=== PATIENT | male | born 1960 | race Caucasian/White ===

== ENCOUNTER 2017-11-10 17:41 | Emergency (ER) | payer MEDICAID ==
--- NOTE | 2017-11-10 18:28 | ERPHSYRPT ---
- History of Present Illness Source: patient Exam Limitations: no limitations Patient Subjective Stated Complaint: Pt states "I had surgery on my esophagus by Dr. Wahl on September 06 and I was eating well and when they sent me home , I got an infection and then I developed a hole and have not been able to take my medication or eat for the past week or so and I am losing a ton of weight and when I called to get to see the surgeon, they could get me in next wednesday but they told me to go to the ED to get some fluids, but I also hurt so much." Triage Nursing Assessment: Pt alert and oriented X 3, skin pwd. pt ambulates with an upright steady gait, able to speak in clear full sentences. PT extremly thin, has scarring on abdomen and wound with a wet to dry dressing on upper chest. pt voice hoarse. Timing/Duration: week(s) (2 months) Severity: severe Modifying Factors: Improves With: eating Associated Symptoms: vomiting, weakness, No nausea, No abdominal pain Hx Tetanus, Diphtheria Vaccination/Date Given: Yes Hx Influenza Vaccination/Date Given: Yes Hx Pneumococcal Vaccination/Date Given: Yes Immunizations Up to Date: Yes <KENDRA MELTON - Last Filed: 11/10/17 19:48> <JAIRON ROGERS - Last Filed: 11/10/17 21:24> - History of Present Illness Time Seen by Provider: 11/10/17 18:08 Physician History: The patient is a 57-year-old male with his brother complaining of not being able to eat or drink normally since September 06. His condition has worsened significantly over the past 5 days. Of December of last year the patient had a spit fistula repair with stent placement that [facility]. On September 06 the patient had an upper endoscopy which showed 2 significant strictures in his esophagus. He is to see a GI specialist at [facility] on Wednesday. Over the last 5 days he will regurgitate any liquid that he tries to consume. This does not happen all the time. He is unable to take his daily medicines because of the difficulty with swallowing. Since August he has had a dramatic weight loss. He weighed only 130 pounds in August and now weighs 119 pounds. He has had very little urination over the past 2 days. He called his GI specialist and was told they cannot get him in to be seen any sooner than Wednesday. He was told to go to the nearest ER for IV fluids and wait until Wednesday. He has a past medical history of Ehrlos Danlos syndrome, Marfan syndrome, depression, and esophageal stricture with repair, he has had a feeding tube in the past for this condition. (KENDRA MELTON) Allergies/Adverse Reactions: Penicillins Allergy (Verified 10/15/16 09:01) acetaminophen [From Percocet] Adverse Reaction (Verified 10/15/16 09:01) Itching codeine Adverse Reaction (Verified 10/15/16 09:01) Itching morphine Adverse Reaction (Verified 10/15/16 09:01) Itching naproxen Adverse Reaction (Verified 10/15/16 09:01) Rash oxycodone [From Percocet] Adverse Reaction (Verified 10/15/16 09:01) Itching Home Medications: Alprazolam [Xanax Xr] 0.5 mg PO DAILY 10/12/16 [History] Aspirin 81 mg PO DAILY 10/12/16 [History] Calcium Carbonate/Vitamin D3 [Oyster Shell 500-Vit D3 200 Tb] 1 ea PO WEEKLY [History] Docusate Sodium [Stool Softener] 100 mg PO UD 10/12/16 [History] Fenofibrate Nanocrystallized [Tricor] 48 mg PO DAILY 10/12/16 [History] Fluticasone/Salmeterol [Advair 250-50 Diskus] 1 puff IH HS 10/12/16 [History] Glycerin [Suppository] 1 each RC UD 10/12/16 [History] Hydrocodone/Acetaminophen [Hydrocodon-Acetaminophn 10-325] 1 ea PO UD 10/12/16 [ History] Ipratropium/Albuterol Sulfate [Combivent Respimat Common Canister] 1 puff IH QID 10/12/16 [History] Loratadine 10 mg [Claritin 10 mg] 10 mg PO DAILY 10/12/16 [History] Methocarbamol 500 mg [Robaxin 500 MG] 500 mg PO DAILY 10/12/16 [History] Mirtazapine 45 mg PO DAILY 10/12/16 [History] Nitroglycerin 0.4 mg (Ed) [Nitrostat 0.4 MG (ED)] 0.4 mg PO Q5MIN PRN MR X 3 PRN 10/12/16 [History] Ondansetron HCl [Zofran] 4 mg PO BID 10/12/16 [History] PANTOPRAZOLE 40 mg Tablet [Protonix 40MG Tablet] 40 mg PO DAILY 10/12/16 [ History] Polyethylene Glycol 3350 17 gm PO UD 10/12/16 [History] Venlafaxine HCl ER 75 mg [Effexor XR 75 MG] 75 mg PO UD 10/12/16 [History] Venlafaxine HCl [Venlafaxine HCl ER] 150 mg PO DAILY 10/12/16 [History] - Review of Systems Constitutional: Weakness, Weight Loss Eyes: No Symptoms Ears, Nose, & Throat: No Symptoms Respiratory: No Cough, No Dyspnea Cardiac: No Chest Pain, No Edema, No Syncope Abdominal/Gastrointestinal: Vomiting Genitourinary Symptoms: No Dysuria Musculoskeletal: No Back Pain, No Neck Pain Skin: No Rash Neurological: No Dizziness, No Focal Weakness, No Sensory Changes Psychological: No Symptoms Endocrine: No Symptoms Hematologic/Lymphatic: No Symptoms Immunological/Allergic: No Symptoms All Other Systems: Reviewed and Negative <KENDRA MELTON - Last Filed: 11/10/17 19:48> - Past Medical History Pertinent Past Medical History: Yes Neurological History: No Pertinent History ENT History: Cataracts Cardiac History: No Pertinent History Respiratory History: Emphysema Endocrine Medical History: No Pertinent History Musculoskeletal History: Other GI Medical History: Esophageal Disorder, GERD, Hemorrhoids, Hernia History: Other Psycho-Social History: Anxiety, Depression Male Reproductive Disorders: No Pertinent History Other Medical History: states emphasema r/t connective disease,and "really thin bones" - Past Surgical History Past Surgical History: Yes Neuro Surgical History: No Pertinent History Cardiac: No Pertinent History Respiratory: Lobectomy Gastrointestinal: Hernia Repair Genitourinary: No Pertinent History Musculoskeletal: Orthopedic Surgery Male Surgical History: No Pertinent History Other Surgical History: left knee "polyp or blockage removed,not cancer 2015", endo scopes,colonoscopies,left upper lobe lung removed r/t the connective tissue disease. endoscope - Social History Smoking Status: Former smoker Exposure to second hand smoke: No Drug Use: none Patient Lives Alone: No <KENDRA MELTON - Last Filed: 11/10/17 19:48> - Physical Exam General Appearance: moderate distress, cachetic, thin Eye Exam: PERRL/EOMI, eyes nml inspection Ears, Nose, Throat Exam: normal ENT inspection, TMs normal, pharynx normal, moist mucous membranes Neck Exam: normal inspection, non-tender, supple, full range of motion Respiratory Exam: normal breath sounds, lungs clear, No respiratory distress Cardiovascular Exam: regular rate/rhythm, normal heart sounds, normal peripheral pulses Gastrointestinal/Abdomen Exam: soft, normal bowel sounds, No tenderness, No mass Rectal Exam: not done Back Exam: normal inspection, normal range of motion, No CVA tenderness, No vertebral tenderness Extremity Exam: normal inspection, normal range of motion, pelvis stable Neurologic Exam: alert, oriented x 3, cooperative, normal mood/affect, nml cerebellar function, nml station & gait, sensation nml, No motor deficits Skin Exam: other (vertical scar mid abd, healing surgical wound left upper chest.) Lymphatic Exam: No adenopathy SpO2 Interpretation: normal SpO2: 99 Oxygen Delivery: Room Air <KENDRA MELTON - Last Filed: 11/10/17 19:48> - Nursing Vital Signs Nursing Vital Signs: Initial Vital Signs Temperature 97.4 F 11/10/17 17:51 Pulse Rate 96 H 11/10/17 17:51 Respiratory Rate 16 11/10/17 17:51 Blood Pressure 102/86 11/10/17 17:51 O2 Sat by Pulse Oximetry 99 11/10/17 17:51 Pain Scale Pain Intensity 2 - Course Nursing assessment & vital signs reviewed: Yes <JAIRON ROGERS - Last Filed: 11/10/17 21:24> Ordered Tests: Active Orders 24 hr Category Date Time Status IV Insertion STAT Care 11/10/17 18:38 Active CBC W DIFF Stat Lab 11/10/17 19:10 Completed CMP Stat Lab 11/10/17 19:10 Completed CULTURE,URINE Stat Lab 11/10/17 20:30 Received LIPASE Stat Lab 11/10/17 19:10 Completed Lactic Acid Stat Lab 11/10/17 19:10 Completed UA W/ MICROSCOPIC Stat Lab 11/10/17 20:30 Completed Medication Summary Discontinued Medications Generic Name Dose Route Start Last Admin Trade Name Freq PRN Reason Stop Dose Admin Sodium Chloride 1,000 mls @ 999 mls/hr 11/10/17 18:38 11/10/17 19:25 Sodium Chloride 0.9% 1000 Ml IV 11/10/17 19:38 999 mls/hr .Q1H1M STA Administration Sodium Chloride Confirm 11/10/17 19:24 Sodium Chloride 0.9% 1000 Ml Administered 11/10/17 19:25 Dose 1,000 mls @ ud .ROUTE .STK-MED ONE Ondansetron HCl 4 mg 11/10/17 18:38 11/10/17 19:25 Zofran 4 Mg/2 Ml Vial IV 11/10/17 18:39 4 mg STAT ONE Administration Ondansetron HCl Confirm 11/10/17 19:24 Zofran 4 Mg/2 Ml Vial Administered 11/10/17 19:25 Dose 4 mg .ROUTE .STK-MED ONE Lab/Rad Data: Laboratory Result Diagrams 11/10/17 19:10 11/10/17 19:10 Laboratory Results 11/10/17 11/10/17 11/10/17 Range/Units 20:30 19:10 19:10 WBC (4.0-10.5) K/mm3 RBC (4.1-5.6) M/mm3 Hgb (12.5-18.0) gm/dl Hct (42-50) % MCV (78-100) fl MCH (26-32) pg MCHC (32-36) g/dl RDW (11.5-14.0) % Plt Count (150-450) K/mm3 MPV (6-9.5) fl Gran % (36.0-66.0) % Eos # (Auto) (0-0.5) Absolute Lymphs (auto) (1.0-4.6) Absolute Monos (auto) (0.0-1.3) Lymphocytes % (24.0-44.0) % Monocytes % (0.0-12.0) % Eosinophils % (0.00-5.0) % Basophils % (0.0-0.4) % Absolute Granulocytes (1.4-6.9) Basophils # (0-0.4) Sodium 137 (137-145) mmol/L Potassium 4.6 (3.5-5.1) mmol/L Chloride 101 (98-107) mmol/L Carbon Dioxide 23 (22-30) mmol/L Anion Gap 16.7 H (5-15) MEQ/L BUN 12 (9-20) mg/dL Creatinine 0.62 L (0.66-1.25) mg/dL Estimated GFR > 60 ML/MIN Glucose 98 (74-106) mg/dL Lactic Acid 1.4 (0.4-2.0) Calcium 9.7 (8.4-10.2) mg/dL Total Bilirubin 0.40 (0.2-1.3) mg/dL AST 19 (17-59) U/L ALT 10 (0-50) U/L Alkaline Phosphatase 112 (38-126) U/L Serum Total Protein 7.1 (6.3-8.2) g/dL Albumin 3.8 (3.5-5.0) g/dL Lipase 41 (23-300) U/L Ur Collection Type VOID Urine Color YELLOW (YELLOW) Urine Appearance CLEAR (CLEAR) Urine pH 6.0 (5-6) Ur Specific [place] 1.010 (1.005-1.025) Urine Protein TRACE (Negative) Urine Ketones SMALL (NEGATIVE) Urine Blood 250 (0-5) Rai/ul Urine Nitrite NEGATIVE (NEGATIVE) Urine Bilirubin SMALL (NEGATIVE) Urine Urobilinogen 1 (0-1) mg/dL Ur Leukocyte Esterase 1+ (NEGATIVE) Urine Microscopic RBC 15-25 (0-2) /HPF Urine Microscopic WBC 2-5 (0-5) /HPF Ur Epithelial Cells FEW (FEW) /HPF Urine Bacteria MODERATE (NEGATIVE) /HPF Urine Mucus MANY (NEGATIVE) /HPF Urine Culture Reflexed YES (NO) Urine Glucose NEGATIVE (NEGATIVE) mg/dL Specimen Received 11/10/17 2030 11/10/17 Range/Units 19:10 WBC 16.1 H (4.0-10.5) K/mm3 RBC 4.45 (4.1-5.6) M/mm3 Hgb 12.2 L (12.5-18.0) gm/dl Hct 37.6 L (42-50) % MCV 84.5 (78-100) fl MCH 27.4 (26-32) pg MCHC 32.4 (32-36) g/dl RDW 17.0 H (11.5-14.0) % Plt Count 481 H (150-450) K/mm3 MPV 10.2 H (6-9.5) fl Gran % 81.5 H (36.0-66.0) % Eos # (Auto) 0.02 (0-0.5) Absolute Lymphs (auto) 1.66 (1.0-4.6) Absolute Monos (auto) 1.29 (0.0-1.3) Lymphocytes % 10.3 L (24.0-44.0) % Monocytes % 8.0 (0.0-12.0) % Eosinophils % 0.1 (0.00-5.0) % Basophils % 0.1 (0.0-0.4) % Absolute Granulocytes 13.10 H (1.4-6.9) Basophils # 0.02 (0-0.4) Sodium (137-145) mmol/L Potassium (3.5-5.1) mmol/L Chloride (98-107) mmol/L Carbon Dioxide (22-30) mmol/L Anion Gap (5-15) MEQ/L BUN (9-20) mg/dL Creatinine (0.66-1.25) mg/dL Estimated GFR ML/MIN Glucose (74-106) mg/dL Lactic Acid (0.4-2.0) Calcium (8.4-10.2) mg/dL Total Bilirubin (0.2-1.3) mg/dL AST (17-59) U/L ALT (0-50) U/L Alkaline Phosphatase (38-126) U/L Serum Total Protein (6.3-8.2) g/dL Albumin (3.5-5.0) g/dL Lipase (23-300) U/L Ur Collection Type Urine Color (YELLOW) Urine Appearance (CLEAR) Urine pH (5-6) Ur Specific [place] (1.005-1.025) Urine Protein (Negative) Urine Ketones (NEGATIVE) Urine Blood (0-5) Rai/ul Urine Nitrite (NEGATIVE) Urine Bilirubin (NEGATIVE) Urine Urobilinogen (0-1) mg/dL Ur Leukocyte Esterase (NEGATIVE) Urine Microscopic RBC (0-2) /HPF Urine Microscopic WBC (0-5) /HPF Ur Epithelial Cells (FEW) /HPF Urine Bacteria (NEGATIVE) /HPF Urine Mucus (NEGATIVE) /HPF Urine Culture Reflexed (NO) Urine Glucose (NEGATIVE) mg/dL Specimen Received - Progress Progress: unchanged <KENDRA MELTON - Last Filed: 11/10/17 19:48> - Progress Progress: improved Counseled pt/family regarding: lab results, diagnosis <JAIRON ROGERS - Last Filed: 11/10/17 21:24> - Progress Progress Note: 11/10/17 19:47 Pt care discussed and care transferred to Dr Rogers at 19:00. (KENDRA MELTON) patient is able to swallow fluids without any difficulties 11/10/17 21:22 (JAIRON ROGERS) <KENDRA MELTON - Last Filed: 11/10/17 19:48> - Departure Time of Disposition: 21:23 Departure Disposition: Home Critical Care Time: No <JAIRON ROGERS - Last Filed: 11/10/17 21:24> - Departure Clinical Impression: Esophageal stricture Condition: Stable Referrals: ANABELLE BEAR [Primary Care Provider] - Instructions: Esophageal Stricture Additional Instructions: follow-upwith her physician in 1-2 days. Return for worse chest pain, difficulty swallowing solids/liquids, vomiting or any problems
[2017-11-10] MEDS ORDERED: Sodium Chloride 0.9% 1000 ML 1,000 ML IV STA (18:38)
[2017-11-10] MEDS ORDERED: Zofran 4 MG/2 ML VIAL IV ONE (18:38)
[2017-11-10 19:14] LABS: BASOPHIL % 0.1 % (0.0-0.4); Basophil (Absolute #) 0.02 (0-0.4); Eosinophil % 0.1 % (0.00-5.0); Eosinophil (Absolute #) 0.02 (0-0.5); Granulocytes % 81.5 % (36.0-66.0); Hematocrit 37.6 % (42-50); Hemoglobin 12.2 gm/dl (12.5-18.0); Lymphocyte (Absolute #) 1.66 (1.0-4.6); Lymphocytes % 10.3 % (24.0-44.0); Mean Cell Volume 84.5 fl (78-100); Mean Corpuscular Hemoglobin 27.4 pg (26-32); Mean Corpuscular Hgb Concent. 32.4 g/dl (32-36); Mean Platelet Volume 10.2 fl (6-9.5); Monocyte (Absolute #) 1.29 (0.0-1.3); Platelet Count 481 K/mm3 (150-450); Red Blood Count 4.45 M/mm3 (4.1-5.6); White Blood Count 16.1 K/mm3 (4.0-10.5)
[2017-11-10] MEDS ORDERED: Sodium Chloride 0.9% 1000 ML 1,000 ML ONE (19:24)
[2017-11-10] MEDS ORDERED: Zofran 4 MG/2 ML VIAL ONE (19:24)
[2017-11-10 19:40] LABS: ALBUMIN 3.8 g/dL (3.5-5.0); ALKALINE PHOSPHATASE 112 U/L (38-126); ANION GAP 16.7 MEQ/L (5-15); BLOOD UREA NITROGEN 12 mg/dL (9-20); CHLORIDE 101 mmol/L (98-107); Calcium 9.7 mg/dL (8.4-10.2); Carbon Dioxide 23 mmol/L (22-30); Creatinine 1 0.62 mg/dL (0.66-1.25); Glucose 98 mg/dL (74-106); LIPASE 41 U/L (23-300); Potassium 4.6 mmol/L (3.5-5.1); SGOT/AST 19 U/L (17-59); SGPT/ALT 10 U/L (0-50); SODIUM 137 mmol/L (137-145); Total Protein 7.1 g/dL (6.3-8.2)
[2017-11-10 20:04] VITALS: O2SAT 98
[2017-11-10 21:01] VITALS: BP 101/75; PULSE 81
[2017-11-10 21:02] LABS: Appearance CLEAR (CLEAR); Bilirubin SMALL (NEGATIVE); Blood 250 Ery/ul (0-5); Glucose NEGATIVE (NEGATIVE); Ketones SMALL (NEGATIVE); Leukocyte Esterase 1+ (NEGATIVE); Mucus MANY /HPF (NEGATIVE); Nitrite NEGATIVE (NEGATIVE); Protein,Urine Dip TRACE (Negative); Urobilinogen 1 mg/dL (0-1)
[2017-11-10 21:03] LABS: Bacteria MODERATE /HPF (NEGATIVE); Epithelial Cells FEW /HPF (FEW)
== END 2017-11-10 21:40 | disposition home or self-care (01) ==
LOC: ED 17:41
DX: K22.2 Esophageal obstruction (principal); Z79.899 Other long term (current) drug therapy; F41.8 Other specified anxiety disorders; K21.9 Gastro-esophageal reflux disease without esophagitis
CPT/HCPCS: 36000; 36415; 80053; 81000; 83605; 83690; 85025; 87086; 96360; 96365; 96374; 99284; J2405

== ENCOUNTER 2017-11-29 11:23 | Emergency (ER) | payer MEDICAID ==
[2017-11-29] MEDS ORDERED: Sodium Chloride 0.9% 1000 ML 1,000 ML IV STA (12:05)
[2017-11-29] MEDS ORDERED: Sodium Chloride 0.9% 1000 ML 1,000 ML ONE (12:23)
--- NOTE | 2017-11-29 12:25 | ERPHSYRPT ---
- History of Present Illness Time Seen by Provider: 11/29/17 11:45 Source: patient Exam Limitations: clinical condition Patient Subjective Stated Complaint: Pt states "I was lightheaded yeserday, and today when I took my blood pressure, it was low. 74/58" Triage Nursing Assessment: Pt alert and oriented X 3, skin pwd Pt ambulates without difficulty, pt has wound on chest, several scars, a feeding tube in place as well. Pt voice is harsh. Physician History: PATIENT WITH A HISTORY OF MARFANS SYNDRDOME, AND ESOPHAGEAL RECONSTRUCTION FOR ESOPHAGEA STRICTURE AT [facility] [place], HAS HAD 130 POUND WEIGHT LOSS OVER THE PAST FEW MONTHS. PATIENT COMPLAINS OF A PRODUCTIVE COUGH X 7 DAYS, LIGHTHEADEDNESS, AND LOW BLOOD PRESSURE WITH A SYSTOLIC BLOOD PRESSURE OF 75 SINCE LAST NIGHT. DENIES FEVER, CHILLS, CHEST PAIN. HAS GASTROTOMY TUBE FEEDINGS OSMOLITE TUE FEEDINGS 8OUNCES EVERY 4 HOURS. Timing/Duration: day(s) Severity: moderate Associated Symptoms: cough Allergies/Adverse Reactions: Penicillins Allergy (Unknown, Verified 11/13/17 08:05) acetaminophen [From Percocet] Adverse Reaction (Verified 11/13/17 08:05) Itching codeine Adverse Reaction (Verified 11/13/17 08:05) Itching morphine Adverse Reaction (Verified 11/13/17 08:05) Itching naproxen Adverse Reaction (Verified 11/13/17 08:05) Rash oxycodone [From Percocet] Adverse Reaction (Verified 11/13/17 08:05) Itching Home Medications: Alprazolam [Xanax Xr] 0.5 mg PO DAILY 10/12/16 [History] Aspirin 81 mg PO DAILY 10/12/16 [History] Calcium Carbonate/Vitamin D3 [Oyster Shell 500-Vit D3 200 Tb] 1 ea PO WEEKLY [History] Docusate Sodium [Stool Softener] 100 mg PO UD 10/12/16 [History] Fenofibrate Nanocrystallized [Tricor] 48 mg PO DAILY 10/12/16 [History] Fluticasone/Salmeterol [Advair 250-50 Diskus] 1 puff IH HS 10/12/16 [History] Glycerin [Suppository] 1 each RC UD 10/12/16 [History] Hydrocodone/Acetaminophen [Hydrocodon-Acetaminophn 10-325] 1 ea PO UD 10/12/16 [ History] Ipratropium/Albuterol Sulfate [Combivent Respimat Common Canister] 1 puff IH QID 10/12/16 [History] Loratadine 10 mg [Claritin 10 mg] 10 mg PO DAILY 10/12/16 [History] Methocarbamol 500 mg [Robaxin 500 MG] 500 mg PO DAILY 10/12/16 [History] Mirtazapine 45 mg PO DAILY 10/12/16 [History] Nitroglycerin 0.4 mg (Ed) [Nitrostat 0.4 MG (ED)] 0.4 mg PO Q5MIN PRN MR X 3 PRN 10/12/16 [History] Ondansetron HCl [Zofran] 4 mg PO BID 10/12/16 [History] PANTOPRAZOLE 40 mg Tablet [Protonix 40MG Tablet] 40 mg PO DAILY 10/12/16 [ History] Polyethylene Glycol 3350 17 gm PO UD 10/12/16 [History] Venlafaxine HCl ER 75 mg [Effexor XR 75 MG] 75 mg PO UD 10/12/16 [History] Venlafaxine HCl [Venlafaxine HCl ER] 150 mg PO DAILY 10/12/16 [History] Hx Tetanus, Diphtheria Vaccination/Date Given: Yes Hx Influenza Vaccination/Date Given: Yes Hx Pneumococcal Vaccination/Date Given: Yes Immunizations Up to Date: Yes - Review of Systems Constitutional: No Fever, No Chills Eyes: No Symptoms Ears, Nose, & Throat: No Symptoms Respiratory: Cough, No Dyspnea Cardiac: No Symptoms, No Chest Pain, No Edema, No Syncope Abdominal/Gastrointestinal: No Symptoms, No Abdominal Pain, No Nausea, No Vomiting, No Diarrhea Genitourinary Symptoms: No Symptoms, No Dysuria Musculoskeletal: No Symptoms, No Back Pain, No Neck Pain Skin: No Symptoms, No Rash Neurological: No Dizziness, No Focal Weakness, No Sensory Changes Psychological: No Symptoms Endocrine: No Symptoms All Other Systems: Reviewed and Negative - Past Medical History Pertinent Past Medical History: Yes Neurological History: No Pertinent History ENT History: Cataracts Cardiac History: No Pertinent History Respiratory History: Emphysema Endocrine Medical History: No Pertinent History Musculoskeletal History: Other GI Medical History: Esophageal Disorder, GERD, Hemorrhoids, Hernia History: Other Psycho-Social History: Anxiety, Depression Male Reproductive Disorders: No Pertinent History Other Medical History: states emphasema r/t connective disease,and "really thin bones" - Past Surgical History Past Surgical History: Yes Neuro Surgical History: No Pertinent History Cardiac: No Pertinent History Respiratory: Lobectomy Gastrointestinal: Hernia Repair, Other Genitourinary: No Pertinent History Musculoskeletal: Orthopedic Surgery Male Surgical History: No Pertinent History Other Surgical History: left knee "polyp or blockage removed,not cancer 2015", endo scopes,colonoscopies,left upper lobe lung removed r/t the connective tissue disease, aug 2017 had esoph/hiatel hernia/stomach [facility] , also at this time left clavicle bone removed and place at stomach to wrap remainder of stomach around it. endoscope. feeding tube - Social History Smoking Status: Former smoker Exposure to second hand smoke: No Drug Use: none Patient Lives Alone: No - Nursing Vital Signs Nursing Vital Signs: Initial Vital Signs Temperature 97.7 F 11/29/17 11:31 Pulse Rate 84 11/29/17 11:31 Respiratory Rate 16 11/29/17 11:31 Blood Pressure 78/59 11/29/17 11:31 O2 Sat by Pulse Oximetry 100 11/29/17 11:31 Pain Scale Pain Intensity 0 - Physical Exam General Appearance: no apparent distress, alert Eye Exam: PERRL/EOMI, eyes nml inspection Ears, Nose, Throat Exam: normal ENT inspection, TMs normal, pharynx normal, moist mucous membranes Neck Exam: normal inspection, non-tender, supple, full range of motion Respiratory Exam: normal breath sounds, lungs clear, No respiratory distress Cardiovascular Exam: regular rate/rhythm, normal heart sounds, normal peripheral pulses Gastrointestinal/Abdomen Exam: soft, normal bowel sounds, other (FEEDING TUB NOTED), No tenderness, No mass Back Exam: normal inspection, normal range of motion, No CVA tenderness, No vertebral tenderness Extremity Exam: normal inspection, normal range of motion, pelvis stable Neurologic Exam: alert, oriented x 3, cooperative, normal mood/affect, nml cerebellar function, nml station & gait, sensation nml, No motor deficits Skin Exam: normal color, warm, dry, No rash Lymphatic Exam: No adenopathy SpO2: 100 Oxygen Delivery: Room Air - Course EKG Interpreted by Me: RATE, Sinus Rhythm, Sinus Tach, NORMAL AXIS Ordered Tests: Active Orders 24 hr Category Date Time Status Cutter Machine Tender STAT Care 11/29/17 12:06 Active EKG-ER Only STAT Care 11/29/17 12:05 Active Oxygen-ED Only NASAL CANNULA 2 lpm Care 11/29/17 12:05 Active CHEST 1 VIEW (PORTABLE) Stat Exams 11/29/17 12:05 Completed BLOOD CULTURE Stat Lab 11/29/17 12:10 Received CBC W DIFF Stat Lab 11/29/17 12:35 Completed CMP Stat Lab 11/29/17 12:35 Completed TROPONIN Q3H Lab 11/29/17 12:35 Completed TROPONIN Q3H Lab 11/30/17 00:15 Ordered UA W/ MICROSCOPIC Stat Lab 11/29/17 12:08 Completed Medication Summary Discontinued Medications Generic Name Dose Route Start Last Admin Trade Name Freq PRN Reason Stop Dose Admin Dextrose 25 ml 11/29/17 15:43 11/29/17 15:46 D50w 50 Ml Abboject IV 11/29/17 15:44 25 ml STAT ONE Administration Dextrose Confirm 11/29/17 15:46 D50w 50 Ml Abboject Administered 11/29/17 15:47 Dose 50 ml IV .STK-MED ONE Sodium Chloride 1,000 mls @ 999 mls/hr 11/29/17 12:05 11/29/17 12:24 Sodium Chloride 0.9% 1000 Ml IV 11/29/17 13:05 999 mls/hr .Q1H1M STA Administration Sodium Chloride Confirm 11/29/17 12:23 Sodium Chloride 0.9% 1000 Ml Administered 11/29/17 12:24 Dose 1,000 mls @ ud .ROUTE .STK-MED ONE Lab/Rad Data: Laboratory Result Diagrams 11/29/17 12:35 11/29/17 12:35 Laboratory Results 11/29/17 11/29/17 11/29/17 Range/Units 12:35 12:35 12:35 WBC 10.3 (4.0-10.5) K/mm3 RBC 4.08 L (4.1-5.6) M/mm3 Hgb 11.0 L (12.5-18.0) gm/dl Hct 35.0 L (42-50) % MCV 85.8 (78-100) fl MCH 26.9 (26-32) pg MCHC 31.4 L (32-36) g/dl RDW 18.0 H (11.5-14.0) % Plt Count 477 H (150-450) K/mm3 MPV 10.3 H (6-9.5) fl Gran % 79.3 H (36.0-66.0) % Eos # (Auto) 0.14 (0-0.5) Absolute Lymphs (auto) 1.24 (1.0-4.6) Absolute Monos (auto) 0.72 (0.0-1.3) Lymphocytes % 12.0 L (24.0-44.0) % Monocytes % 7.0 (0.0-12.0) % Eosinophils % 1.4 (0.00-5.0) % Basophils % 0.3 (0.0-0.4) % Absolute Granulocytes 8.21 H (1.4-6.9) Basophils # 0.03 (0-0.4) Sodium 142 (137-145) mmol/L Potassium 4.5 (3.5-5.1) mmol/L Chloride 104 (98-107) mmol/L Carbon Dioxide 27 (22-30) mmol/L Anion Gap 15.1 H (5-15) MEQ/L BUN 22 H (9-20) mg/dL Creatinine 0.63 L (0.66-1.25) mg/dL Estimated GFR > 60.0 ML/MIN Glucose 62 L (74-106) mg/dL Calcium 9.7 (8.4-10.2) mg/dL Total Bilirubin < 0.10 L (0.2-1.3) mg/dL AST 13 L (17-59) U/L ALT 11 (0-50) U/L Alkaline Phosphatase 78 (38-126) U/L Troponin I < 0.012 (0.000-0.034) ng/mL Serum Total Protein 6.8 (6.3-8.2) g/dL Albumin 3.6 (3.5-5.0) g/dL Ur Collection Type Urine Color (YELLOW) Urine Appearance (CLEAR) Urine pH (5-6) Ur Specific [place] (1.005-1.025) Urine Protein (Negative) Urine Ketones (NEGATIVE) Urine Blood (0-5) Rai/ul Urine Nitrite (NEGATIVE) Urine Bilirubin (NEGATIVE) Urine Urobilinogen (0-1) mg/dL Ur Leukocyte Esterase (NEGATIVE) Urine Microscopic RBC (0-2) /HPF Urine Microscopic WBC (0-5) /HPF Ur Epithelial Cells (FEW) /HPF Urine Bacteria (NEGATIVE) /HPF Urine Mucus (NEGATIVE) /HPF Urine Culture Reflexed (NO) Urine Glucose (NEGATIVE) mg/dL Specimen Received 11/29/17 Range/Units 12:08 WBC (4.0-10.5) K/mm3 RBC (4.1-5.6) M/mm3 Hgb (12.5-18.0) gm/dl Hct (42-50) % MCV (78-100) fl MCH (26-32) pg MCHC (32-36) g/dl RDW (11.5-14.0) % Plt Count (150-450) K/mm3 MPV (6-9.5) fl Gran % (36.0-66.0) % Eos # (Auto) (0-0.5) Absolute Lymphs (auto) (1.0-4.6) Absolute Monos (auto) (0.0-1.3) Lymphocytes % (24.0-44.0) % Monocytes % (0.0-12.0) % Eosinophils % (0.00-5.0) % Basophils % (0.0-0.4) % Absolute Granulocytes (1.4-6.9) Basophils # (0-0.4) Sodium (137-145) mmol/L Potassium (3.5-5.1) mmol/L Chloride (98-107) mmol/L Carbon Dioxide (22-30) mmol/L Anion Gap (5-15) MEQ/L BUN (9-20) mg/dL Creatinine (0.66-1.25) mg/dL Estimated GFR ML/MIN Glucose (74-106) mg/dL Calcium (8.4-10.2) mg/dL Total Bilirubin (0.2-1.3) mg/dL AST (17-59) U/L ALT (0-50) U/L Alkaline Phosphatase (38-126) U/L Troponin I (0.000-0.034) ng/mL Serum Total Protein (6.3-8.2) g/dL Albumin (3.5-5.0) g/dL Ur Collection Type VOID Urine Color YELLOW (YELLOW) Urine Appearance CLEAR (CLEAR) Urine pH 8.0 (5-6) Ur Specific [place] 1.010 (1.005-1.025) Urine Protein NEGATIVE (Negative) Urine Ketones NEGATIVE (NEGATIVE) Urine Blood 5-10 (0-5) Rai/ul Urine Nitrite NEGATIVE (NEGATIVE) Urine Bilirubin NEGATIVE (NEGATIVE) Urine Urobilinogen NORMAL (0-1) mg/dL Ur Leukocyte Esterase NEGATIVE (NEGATIVE) Urine Microscopic RBC 0-2 (0-2) /HPF Urine Microscopic WBC 0-2 (0-5) /HPF Ur Epithelial Cells RARE (FEW) /HPF Urine Bacteria RARE (NEGATIVE) /HPF Urine Mucus SLIGHT (NEGATIVE) /HPF Urine Culture Reflexed NO (NO) Urine Glucose NEGATIVE (NEGATIVE) mg/dL Specimen Received 11/29/17 1300 - Progress Progress Note: 11/29/17 12:35 IV NORMAL SALINE 500ML/HR X 2, BP 110/71 IMPROVED AFTER BOLUS 11/29/17 16:30 Counseled pt/family regarding: lab results, diagnosis, need for follow-up - Departure Time of Disposition: 16:43 Departure Disposition: Home Clinical Impression: DEHYDRATION, HYPOGLYCEMIA Condition: Stable Critical Care Time: No Referrals: ANABELLE BEAR [Primary Care Provider] - Additional Instructions: INCREASE OSMOLITE FEEDING TO 6 TIMES DAILY. FOLLOWUP WITH YOUR PRIMARY CARE PROVIDER TO SCHEDULE APPOINTMENT.
--- NOTE | 2017-11-29 12:36 | XRAY ---
Indication: Short of breath. Comparison: None Portable chest hyperinflated with bullous emphysema, right lung calcified granuloma, and left upper lung suture material/surgical clips. No focal infiltrate, consolidation, or large effusion. Heart is not enlarged. Stent graft overlies the left paramediastinum. Partial resection left clavicle. Remaining bony thorax intact. Upper abdomen demonstrates epigastric surgical clips and partially visualized pigtail drainage catheter. Impression: Pulmonary emphysema and postsurgical changes. Negative for acute pneumonic process or CHF.
[2017-11-29 12:44] LABS: BASOPHIL % 0.3 % (0.0-0.4); Basophil (Absolute #) 0.03 (0-0.4); Eosinophil % 1.4 % (0.00-5.0); Eosinophil (Absolute #) 0.14 (0-0.5); Granulocyte Absolute (ANC) 8.21 (1.4-6.9); Granulocytes % 79.3 % (36.0-66.0); Lymphocyte (Absolute #) 1.24 (1.0-4.6); Mean Cell Volume 85.8 fl (78-100); Mean Corpuscular Hgb Concent. 31.4 g/dl (32-36); Mean Platelet Volume 10.3 fl (6-9.5); Monocyte (Absolute #) 0.72 (0.0-1.3); Platelet Count 477 K/mm3 (150-450); Red Blood Count 4.08 M/mm3 (4.1-5.6); White Blood Count 10.3 K/mm3 (4.0-10.5)
[2017-11-29 12:46] LABS: Mean Corpuscular Hemoglobin 26.9 pg (26-32)
[2017-11-29 14:00] LABS: Appearance CLEAR (CLEAR); Bacteria RARE /HPF (NEGATIVE); Bilirubin NEGATIVE (NEGATIVE); Epithelial Cells RARE /HPF (FEW); Glucose NEGATIVE (NEGATIVE); Ketones NEGATIVE (NEGATIVE); Leukocyte Esterase NEGATIVE (NEGATIVE); Mucus SLIGHT /HPF (NEGATIVE); Nitrite NEGATIVE (NEGATIVE); Protein,Urine Dip NEGATIVE (Negative); Urobilinogen NORMAL mg/dL (0-1); WBC 0-2 /HPF (0-5)
[2017-11-29 15:29] LABS: ALBUMIN 3.6 g/dL (3.5-5.0); ALKALINE PHOSPHATASE 78 U/L (38-126); ANION GAP 15.1 MEQ/L (5-15); BILIRUBIN,TOTAL < 0.10 mg/dL (0.2-1.3); BLOOD UREA NITROGEN 22 mg/dL (9-20); CHLORIDE 104 mmol/L (98-107); Calcium 9.7 mg/dL (8.4-10.2); Carbon Dioxide 27 mmol/L (22-30); Creatinine 1 0.63 mg/dL (0.66-1.25); Glucose 62 mg/dL (74-106); Potassium 4.5 mmol/L (3.5-5.1); SGOT/AST 13 U/L (17-59); SGPT/ALT 11 U/L (0-50); SODIUM 142 mmol/L (137-145); Total Protein 6.8 g/dL (6.3-8.2)
[2017-11-29] MEDS ORDERED: D50W 50 ml Abboject IV ONE ×2 (15:43→15:46)
[2017-11-29 16:53] VITALS: BP 96/73; PULSE 85; O2SAT 98
== END 2017-11-29 16:54 | disposition home or self-care (01) ==
LOC: ED 11:23
DX: E86.0 Dehydration (principal); E16.2 Hypoglycemia, unspecified; R42 Dizziness and giddiness; R05 Cough; Z79.899 Other long term (current) drug therapy; Z93.1 Gastrostomy status
CPT/HCPCS: 36415; 71045; 80053; 81000; 82962; 84484; 85025; 87040; 93005; 93041; 96360; 96374; 99284; 99285

== ENCOUNTER 2018-01-01 13:56 | Emergency (ER) | payer MEDICAID ==
--- NOTE | 2018-01-01 14:16 | ERPHSYRPT ---
- History of Present Illness Time Seen by Provider: 01/01/18 14:12 Source: patient Exam Limitations: no limitations Physician History: This is a 57-year-old white male with history of esophageal disorder who has a feeding tube and states that he has been unable to get his feeding tube to work since today he states he had problems with this yesterday but managed watered- down his feeding solution and the daughter to work today he states that is not working at all. Past medical history includes esophageal disorder cataracts emphysema GERD hemorrhoids hernia. 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 Allergies/Adverse Reactions: Penicillins Allergy (Unknown, Verified 01/01/18 14:07) acetaminophen [From Percocet] Adverse Reaction (Verified 01/01/18 14:07) Itching codeine Adverse Reaction (Verified 01/01/18 14:07) Itching morphine Adverse Reaction (Verified 01/01/18 14:07) Itching naproxen Adverse Reaction (Verified 01/01/18 14:07) Rash oxycodone [From Percocet] Adverse Reaction (Verified 01/01/18 14:07) Itching Home Medications: Aspirin 81 mg PEG DAILY 10/12/16 [History] Fluticasone/Salmeterol [Advair 250-50 Diskus] 1 puff IH HS 10/12/16 [History] Glycerin [Suppository] 1 each RC UD 10/12/16 [History] Hydrocodone/Acetaminophen [Hydrocodon-Acetaminophn 10-325] 1 ea PEG UD 10/12/16 [History] Ipratropium/Albuterol Sulfate [Combivent Respimat Common Canister] 1 puff IH QID 10/12/16 [History] Mirtazapine 45 mg PEG DAILY 10/12/16 [History] Nitroglycerin 0.4 mg (Ed) [Nitrostat 0.4 MG (ED)] 0.4 mg PO Q5MIN PRN MR X 3 PRN 10/12/16 [History] Ondansetron HCl [Zofran] 4 mg PO BID 10/12/16 [History] PANTOPRAZOLE 40 mg Tablet [Protonix 40MG Tablet] 40 mg PEG DAILY 10/12/16 [History] Polyethylene Glycol 3350 17 gm PEG UD 10/12/16 [History] Venlafaxine HCl [Venlafaxine HCl ER] 75 mg PEG TID 10/12/16 [History] Cetirizine HCl [Zyrtec] 10 mg PEG DAILY 01/01/18 [History] Quetiapine Fumarate [Seroquel] 100 mg PEG BID 01/01/18 [History] Tizanidine HCl 4 mg [Zanaflex 4 MG] 4 mg PEG TID 01/01/18 [History] Hx Tetanus, Diphtheria Vaccination/Date Given: Yes Hx Influenza Vaccination/Date Given: Yes Hx Pneumococcal Vaccination/Date Given: Yes - Review of Systems Constitutional: No Fever, No Chills Eyes: No Symptoms Ears, Nose, & Throat: No Symptoms Respiratory: No Cough, No Dyspnea Cardiac: No Chest Pain, No Edema, No Syncope Abdominal/Gastrointestinal: Other (feeding tube not working) Genitourinary Symptoms: No Dysuria Musculoskeletal: No Back Pain, No Neck Pain Skin: No Rash Neurological: No Dizziness, No Focal Weakness, No Sensory Changes Psychological: No Symptoms Endocrine: No Symptoms All Other Systems: Reviewed and Negative - Past Medical History Pertinent Past Medical History: Yes Neurological History: No Pertinent History ENT History: Cataracts Cardiac History: No Pertinent History Respiratory History: Emphysema Endocrine Medical History: No Pertinent History Musculoskeletal History: Other GI Medical History: Esophageal Disorder, GERD, Hemorrhoids, Hernia History: Other Psycho-Social History: Anxiety, Depression Male Reproductive Disorders: No Pertinent History Other Medical History: states emphasema r/t connective disease,and "really thin bones" - Past Surgical History Past Surgical History: Yes Neuro Surgical History: No Pertinent History Cardiac: No Pertinent History Respiratory: Lobectomy Gastrointestinal: Hernia Repair, Other Genitourinary: No Pertinent History Musculoskeletal: Orthopedic Surgery Male Surgical History: No Pertinent History Other Surgical History: left knee "polyp or blockage removed,not cancer 2015", endo scopes,colonoscopies,left upper lobe lung removed r/t the connective tissue disease, aug 2017 had esoph/hiatel hernia/stomach surgery in [facility] , also at this time left clavicle bone removed and place at stomach to wrap remainder of stomach around it. endoscope. feeding tube - Social History Smoking Status: Former smoker Exposure to second hand smoke: No Drug Use: none Patient Lives Alone: No - Nursing Vital Signs Nursing Vital Signs: Initial Vital Signs Temperature 98.6 F 01/01/18 14:02 Pulse Rate 90 01/01/18 14:02 Respiratory Rate 18 01/01/18 14:02 Blood Pressure 99/72 01/01/18 14:02 O2 Sat by Pulse Oximetry 98 01/01/18 14:02 Pain Scale Pain Intensity 2 - Physical Exam General Appearance: no apparent distress, alert Eye Exam: PERRL/EOMI, eyes nml inspection Ears, Nose, Throat Exam: normal ENT inspection, TMs normal, pharynx normal, moist mucous membranes Neck Exam: normal inspection, non-tender, supple, full range of motion Respiratory Exam: normal breath sounds, lungs clear, No respiratory distress Cardiovascular Exam: regular rate/rhythm, normal heart sounds, normal peripheral pulses Gastrointestinal/Abdomen Exam: soft, normal bowel sounds, other (feeding tube in place lower abdomen), No tenderness, No mass Back Exam: normal inspection, normal range of motion, No CVA tenderness, No vertebral tenderness Extremity Exam: normal inspection, normal range of motion, pelvis stable Neurologic Exam: alert, oriented x 3, cooperative, normal mood/affect, nml cerebellar function, nml station & gait, sensation nml, No motor deficits Skin Exam: normal color, warm, dry, No rash Lymphatic Exam: No adenopathy SpO2 Interpretation: normal - Progress Progress: improved Progress Note: 01/01/18 15:08 57-year-old white male with severe esophageal stenosis who has a feeding tube And cannot eat. Patient states that his feeding tube has been clogged since this morning and he is unable to get any thing in or out of the. I've had the nurse tried to flush the feeding tube however she is unable to get anything to go either in or out. I've contacted Dr. Dumont events solutions consultant for Dr. Roger Leslie at [facility] through the one call system. He states that this is a feeding tube that needs to be placed through interventional radiology he states this cannot be placed through an endoscopy. There are apparently no beds available at this time. May need to consider placing the patient on observation him. I contacted the hospitalist over at [facility] and she had me contact Dr. Lewis interventional radiologist. The case was discussed with Dr. Lewis it was noted that the patient will not be able to have any intake of fluids or meds until his feeding tube was placed. He recommended that the patient be sent to [facility] and the patient would be seen by interventional radiology there when available. - Departure Time of Disposition: 15:11 Departure Disposition: Transfer ([facility]) Clinical Impression: FEEDING TUBE PROBLEM Condition: Fair Critical Care Time: No Referrals: ANABELLE BEAR [Primary Care Provider] - Additional Instructions: Proceed to [facility] ER Dr menjivar( interventional radiologist)
[2018-01-01 14:38] VITALS: O2SAT 98
[2018-01-01 15:32] VITALS: BP 100/67; PULSE 88
== END 2018-01-01 15:51 | disposition short-term general hospital (02) ==
LOC: ED 13:56
DX: T85.598A Other mechanical complication of other gastrointestinal prosthetic devices, implants and grafts, initial encounter (principal); K22.2 Esophageal obstruction; Z79.899 Other long term (current) drug therapy
CPT/HCPCS: 99284

== ENCOUNTER 2018-01-14 19:51 | Emergency (ER) | payer MEDICAID ==
--- NOTE | 2018-01-14 20:09 | ERPHSYRPT ---
- History of Present Illness Time Seen by Provider: 01/14/18 20:03 Source: patient Exam Limitations: no limitations Physician History: 57-year-old white male with history of esophageal disorder who has had recent surgery on his esophagus with stenting Arrives with complaint of erythema in the left anterior chest adjacent to surgical wound and the mildly along surgical wound Symptoms for 2-3 days he has had no fevers. Past medical history includes esophageal disorder (stenosis), cataracts, emphysema, GERD, hemorrhoids, hernia, patient with a feeding tube Patient without fevers Past surgical history includes lobectomy, hernia repair, knee surgery, polyps or blockage removed with an endoscopy, upper lobe of the lung removed, stent for esophageal stenosis, feeding tube Timing/Duration: day(s) (2-3 days) Severity: mild Modifying Factors: Improves With: nothing Associated Symptoms: other (erythema lateral to and including incision sternal region), No nausea, No vomiting, No abdominal pain, No shortness of breath, No heartburn, No diaphoresis, No cough, No chest pain, No fever, No headaches, No loss of appetite, No malaise, No syncope, No seizure, No weakness Allergies/Adverse Reactions: Penicillins Allergy (Unknown, Verified 01/14/18 20:05) acetaminophen [From Percocet] Adverse Reaction (Verified 01/01/18 14:07) Itching codeine Adverse Reaction (Verified 01/01/18 14:07) Itching morphine Adverse Reaction (Verified 01/01/18 14:07) Itching naproxen Adverse Reaction (Verified 01/01/18 14:07) Rash oxycodone [From Percocet] Adverse Reaction (Verified 01/01/18 14:07) Itching Home Medications: Aspirin 81 mg PEG DAILY 10/12/16 [History] Fluticasone/Salmeterol [Advair 250-50 Diskus] 1 puff IH HS 10/12/16 [History] Glycerin [Suppository] 1 each RC UD 10/12/16 [History] Hydrocodone/Acetaminophen [Hydrocodon-Acetaminophn 10-325] 1 ea PEG UD 10/12/16 [History] Ipratropium/Albuterol Sulfate [Combivent Respimat Common Canister] 1 puff IH QID 10/12/16 [History] Mirtazapine 45 mg PEG DAILY 10/12/16 [History] Nitroglycerin 0.4 mg (Ed) [Nitrostat 0.4 MG (ED)] 0.4 mg PO Q5MIN PRN MR X 3 PRN 10/12/16 [History] Ondansetron HCl [Zofran] 4 mg PO BID 10/12/16 [History] PANTOPRAZOLE 40 mg Tablet [Protonix 40MG Tablet] 40 mg PEG DAILY 10/12/16 [History] Polyethylene Glycol 3350 17 gm PEG UD 10/12/16 [History] Venlafaxine HCl [Venlafaxine HCl ER] 75 mg PEG TID 10/12/16 [History] Cetirizine HCl [Zyrtec] 10 mg PEG DAILY 01/01/18 [History] Quetiapine Fumarate [Seroquel] 100 mg PEG BID 01/01/18 [History] Tizanidine HCl 4 mg [Zanaflex 4 MG] 4 mg PEG TID 01/01/18 [History] Hx Tetanus, Diphtheria Vaccination/Date Given: Yes Hx Influenza Vaccination/Date Given: Yes Hx Pneumococcal Vaccination/Date Given: Yes - Review of Systems Constitutional: No Fever, No Chills Eyes: No Symptoms Ears, Nose, & Throat: No Symptoms Respiratory: No Cough, No Dyspnea Cardiac: No Chest Pain, No Edema, No Syncope Abdominal/Gastrointestinal: No Abdominal Pain, No Nausea, No Vomiting, No Diarrhea Genitourinary Symptoms: No Dysuria Musculoskeletal: No Back Pain, No Neck Pain Skin: Other (patient has what appears to look lik on his anterior sternal region mild erythema to the area) Neurological: No Dizziness, No Focal Weakness, No Sensory Changes Psychological: No Symptoms Endocrine: No Symptoms All Other Systems: Reviewed and Negative - Past Medical History Pertinent Past Medical History: Yes Neurological History: No Pertinent History ENT History: Cataracts Cardiac History: No Pertinent History Respiratory History: Emphysema Endocrine Medical History: No Pertinent History Musculoskeletal History: Other GI Medical History: Esophageal Disorder, GERD, Hemorrhoids, Hernia History: Other Psycho-Social History: Anxiety, Depression Male Reproductive Disorders: No Pertinent History Other Medical History: states emphasema r/t connective disease,and "really thin bones" - Past Surgical History Past Surgical History: Yes Neuro Surgical History: No Pertinent History Cardiac: No Pertinent History Respiratory: Lobectomy Gastrointestinal: Hernia Repair, Other Genitourinary: No Pertinent History Musculoskeletal: Orthopedic Surgery Male Surgical History: No Pertinent History Other Surgical History: left knee "polyp or blockage removed,not cancer 2015", endo scopes,colonoscopies,left upper lobe lung removed r/t the connective tissue disease, aug 2017 had esoph/hiatel hernia/stomach surgery [facility] , also at this time left clavicle bone removed and place at stomach to wrap remainder of stomach around it. endoscope. feeding tube - Social History Smoking Status: Former smoker Exposure to second hand smoke: No Drug Use: none Patient Lives Alone: No - Nursing Vital Signs Nursing Vital Signs: Initial Vital Signs Temperature 98.0 F 01/14/18 19:56 Pulse Rate 60 01/14/18 19:56 Blood Pressure 108/71 01/14/18 19:56 O2 Sat by Pulse Oximetry 99 01/14/18 19:56 Pain Scale Pain Intensity 0 - Physical Exam General Appearance: no apparent distress, alert Eye Exam: PERRL/EOMI, eyes nml inspection Ears, Nose, Throat Exam: normal ENT inspection, TMs normal, pharynx normal, moist mucous membranes Neck Exam: normal inspection, non-tender, supple, full range of motion Respiratory Exam: normal breath sounds, lungs clear, No respiratory distress Cardiovascular Exam: regular rate/rhythm, normal heart sounds, normal peripheral pulses Gastrointestinal/Abdomen Exam: soft, normal bowel sounds, No tenderness, No mass Back Exam: normal inspection, normal range of motion, No CVA tenderness, No vertebral tenderness Extremity Exam: normal inspection, normal range of motion, pelvis stable Neurologic Exam: alert, oriented x 3, cooperative, normal mood/affect, nml cerebellar function, nml station & gait, sensation nml, No motor deficits Skin Exam: other (patient with what appears to be a 1.5 x1 cm area what appears to be a keloid which is lateral to the patient's st mild erythema to the area mild erythema to the incision wound is healing.) Lymphatic Exam: No adenopathy SpO2 Interpretation: normal (99) Ordered Tests: Active Orders 24 hr Category Date Time Status IV Insertion STAT Care 01/14/18 20:10 Active BLOOD CULTURE Stat Lab 01/14/18 20:30 Received BMP Stat Lab 01/14/18 20:03 Completed CBC W DIFF Stat Lab 01/14/18 20:03 Completed Medication Summary Generic Name Dose Route Start Last Admin Trade Name Stanton PRN Reason Stop Dose Admin Vancomycin HCl 250 mls @ 167 mls/hr 01/14/18 20:10 01/14/18 20:24 Vancomycin 1gm/ Ns 250ml IV 01/14/18 21:39 167 mls/hr STAT ONE Administration Discontinued Medications Generic Name Dose Route Start Last Admin Trade Name Stanton PRN Reason Stop Dose Admin Sodium Chloride 1,000 mls @ 999 mls/hr 01/14/18 20:10 01/14/18 21:32 Sodium Chloride 0.9% 1000 Ml IV 01/14/18 21:10 Infused .Q1H1M STA Infusion Sodium Chloride Confirm 01/14/18 20:12 Sodium Chloride 0.9% 1000 Ml Administered 01/14/18 20:13 Dose 1,000 mls @ ud .ROUTE .STK-MED ONE Vancomycin HCl Confirm 01/14/18 20:12 Vancomycin 1gm/ Ns 250ml Administered 01/14/18 20:13 Dose 250 mls @ ud IV .STK-MED ONE Lab/Rad Data: Laboratory Result Diagrams 01/14/18 20:03 01/14/18 20:03 Laboratory Results 01/14/18 01/14/18 Range/Units 20:03 20:03 WBC 12.4 H (4.0-10.5) K/mm3 RBC 3.94 L (4.1-5.6) M/mm3 Hgb 10.4 L (12.5-18.0) gm/dl Hct 32.9 L (42-50) % MCV 83.5 (78-100) fl MCH 26.3 (26-32) pg MCHC 31.6 L (32-36) g/dl RDW 17.7 H (11.5-14.0) % Plt Count 455 H (150-450) K/mm3 MPV 10.7 H (6-9.5) fl Gran % 74.3 H (36.0-66.0) % Eos # (Auto) 0.44 (0-0.5) Absolute Lymphs (auto) 1.81 (1.0-4.6) Absolute Monos (auto) 0.89 (0.0-1.3) Lymphocytes % 14.6 L (24.0-44.0) % Monocytes % 7.2 (0.0-12.0) % Eosinophils % 3.6 (0.00-5.0) % Basophils % 0.3 (0.0-0.4) % Absolute Granulocytes 9.18 H (1.4-6.9) Basophils # 0.04 (0-0.4) Sodium 139 (137-145) mmol/L Potassium 4.6 (3.5-5.1) mmol/L Chloride 100 (98-107) mmol/L Carbon Dioxide 30 (22-30) mmol/L Anion Gap 12.9 (5-15) MEQ/L BUN 30 H (9-20) mg/dL Creatinine 0.64 L (0.66-1.25) mg/dL Estimated GFR > 60.0 ML/MIN Glucose 83 (74-106) mg/dL Calcium 9.6 (8.4-10.2) mg/dL - Progress Progress: improved Progress Note: 01/14/18 20:53 57-year-old white male with history of recent repair of his esophagus secondary to esophageal stenosis with placement of stent. He arrives with complaint of erythema along the wound the wound appears to be healing however there appears to be what looks like a keloid lateral to the wound overlying the sternum there is some erythema along the wound margin also erythema just lateral to the wound and surrounding this is what appears to be a keloid. Patient's labs are essentially normal white count is 12 BUN is slightly high at 30 GFR is greater than 60 otherwise chemistry is normal. Patient is given a liter of normal saline Will give patient vancomycin 1 g IV. Home on Septra suspension 20 mL by feeding tube twice a day for 10 days. Patient follow-up with his family doctor. - Departure Time of Disposition: 20:55 Departure Disposition: Home Clinical Impression: Wound infection Condition: Fair Critical Care Time: No Referrals: ANABELLE BEAR [Primary Care Provider] - Additional Instructions: Return home. Septra suspension 20 mL orally twice a day for 10 days. Follow-up with your family doctor or your surgeon. Return for acute distress or for severe symptoms. is him Prescriptions: Smz/Tmp Suspension [Septra Suspension] 20 ml G-TUBE BID #400 ml
[2018-01-14] MEDS ORDERED: Vancomycin 1GM/ Ns 250ML*** 250 ML IV ONE ×2 (20:10→20:12)
[2018-01-14] MEDS ORDERED: Sodium Chloride 0.9% 1000 ML 1,000 ML IV STA (20:10)
[2018-01-14] MEDS ORDERED: Sodium Chloride 0.9% 1000 ML 1,000 ML ONE (20:12)
[2018-01-14 20:28] LABS: BASOPHIL % 0.3 % (0.0-0.4); Basophil (Absolute #) 0.04 (0-0.4); Eosinophil % 3.6 % (0.00-5.0); Eosinophil (Absolute #) 0.44 (0-0.5); Granulocyte Absolute (ANC) 9.18 (1.4-6.9); Granulocytes % 74.3 % (36.0-66.0); Hematocrit 32.9 % (42-50); Hemoglobin 10.4 gm/dl (12.5-18.0); Lymphocyte (Absolute #) 1.81 (1.0-4.6); Lymphocytes % 14.6 % (24.0-44.0); Mean Cell Volume 83.5 fl (78-100); Mean Corpuscular Hgb Concent. 31.6 g/dl (32-36); Mean Platelet Volume 10.7 fl (6-9.5); Monocyte (Absolute #) 0.89 (0.0-1.3); Monocytes % 7.2 % (0.0-12.0); Platelet Count 455 K/mm3 (150-450); Red Blood Count 3.94 M/mm3 (4.1-5.6); Red Cell Distribution Width 17.7 % (11.5-14.0); White Blood Count 12.4 K/mm3 (4.0-10.5)
[2018-01-14 20:30] LABS: Mean Corpuscular Hemoglobin 26.3 pg (26-32)
[2018-01-14 20:45] LABS: ANION GAP 12.9 MEQ/L (5-15); BLOOD UREA NITROGEN 30 mg/dL (9-20); CHLORIDE 100 mmol/L (98-107); Calcium 9.6 mg/dL (8.4-10.2); Carbon Dioxide 30 mmol/L (22-30); Creatinine 1 0.64 mg/dL (0.66-1.25); Glucose 83 mg/dL (74-106); Potassium 4.6 mmol/L (3.5-5.1); SODIUM 139 mmol/L (137-145)
[2018-01-14 21:01] VITALS: PULSE 76
[2018-01-14 22:09] VITALS: BP 101/77; O2SAT 100
== END 2018-01-14 22:09 | disposition home or self-care (01) ==
LOC: ED 19:51
DX: T81.4XXA Infection following a procedure, initial encounter (principal); Z79.899 Other long term (current) drug therapy; Z79.82 Long term (current) use of aspirin
CPT/HCPCS: 36000; 36415; 80048; 85025; 87040; 96360; 96365; 96366; 99284; J3370

== ENCOUNTER 2018-01-28 18:06 | Observation (INO) | payer MEDICAID, OTHER ==
[2018-01-28 18:58] LABS: BASOPHIL % 0.6 % (0.0-0.4); Basophil (Absolute #) 0.06 (0-0.4); Eosinophil % 3.6 % (0.00-5.0); Eosinophil (Absolute #) 0.37 (0-0.5); Granulocyte Absolute (ANC) 7.77 (1.4-6.9); Granulocytes % 74.6 % (36.0-66.0); Hemoglobin 9.4 gm/dl (12.5-18.0); Lymphocyte (Absolute #) 1.43 (1.0-4.6); Lymphocytes % 13.7 % (24.0-44.0); Mean Cell Volume 82.9 fl (78-100); Mean Corpuscular Hgb Concent. 31.3 g/dl (32-36); Mean Platelet Volume 10.8 fl (6-9.5); Monocyte (Absolute #) 0.78 (0.0-1.3); Monocytes % 7.5 % (0.0-12.0); Platelet Count 504 K/mm3 (150-450); Red Blood Count 3.62 M/mm3 (4.1-5.6); Red Cell Distribution Width 16.7 % (11.5-14.0); White Blood Count 10.4 K/mm3 (4.0-10.5)
[2018-01-28 19:13] LABS: Mean Corpuscular Hemoglobin 25.9 pg (26-32)
[2018-01-28 19:14] LABS: INR 1.01 (0.8-3.0)
[2018-01-28 19:17] LABS: PTT 38.9 SECONDS (24.1-36.1)
[2018-01-28 19:19] LABS: ALBUMIN 3.8 g/dL (3.5-5.0); ALKALINE PHOSPHATASE 102 U/L (38-126); ANION GAP 12.2 MEQ/L (5-15); BILIRUBIN,TOTAL < 0.10 mg/dL (0.2-1.3); BLOOD UREA NITROGEN 37 mg/dL (9-20); CHLORIDE 103 mmol/L (98-107); Calcium 9.2 mg/dL (8.4-10.2); Carbon Dioxide 29 mmol/L (22-30); Creatinine 1 0.63 mg/dL (0.66-1.25); Glucose 89 mg/dL (74-106); Potassium 4.4 mmol/L (3.5-5.1); SGOT/AST 14 U/L (17-59); SGPT/ALT 8 U/L (0-50); SODIUM 140 mmol/L (137-145); Total Protein 7.2 g/dL (6.3-8.2)
--- NOTE | 2018-01-28 19:28 | ERPHSYRPT ---
- History of Present Illness Time Seen by Provider: 01/28/18 19:04 Source: patient Exam Limitations: no limitations Patient Subjective Stated Complaint: pt reports long hx of hernia and esophagus repair over last several months-reports this is the first time he has had blood in his [id number] he has had to have g-tube replaced x 2 recently-denies unusual pain-denies feeling of fullness to abd-reports he is being treated for MRSA in wound to chest-denies obvious blood with bowel movements-states he knows he has hemrhoids-denies difficutly with bowel movements-denies n/v Triage Nursing Assessment: pt pale warm and [id number] to ed room with no difficutly-opened wound noted to chest area-pt states he is on bactrim for it-dark red colored drainage noted throughout g-tube-abd tender to palp which pt reports is normal for him-resp nonlabored Physician History: Pt underwent emergency surgery in 09/[address] [facility]. He has been using feeding tube ever since, which had to be adjusted. He noticed black fluid in it since this morning. He denies vomiting, nausea, chest pain, SOB, fever, or black , bloody stools, has been coughing for few days. Timing/Duration: today Severity: mild Modifying Factors: Improves With: nothing Associated Symptoms: denies symptoms Allergies/Adverse Reactions: Penicillins Allergy (Unknown, Verified 01/28/18 18:33) acetaminophen [From Percocet] Adverse Reaction (Verified 01/28/18 18:33) Itching codeine Adverse Reaction (Verified 01/28/18 18:33) Itching morphine Adverse Reaction (Verified 01/28/18 18:33) Itching naproxen Adverse Reaction (Verified 01/28/18 18:33) Rash oxycodone [From Percocet] Adverse Reaction (Verified 01/28/18 18:33) Itching Home Medications: Aspirin 81 mg PEG DAILY 10/12/16 [History] Fluticasone/Salmeterol [Advair 250-50 Diskus] 1 puff IH HS 10/12/16 [History] Glycerin [Suppository] 1 each RC UD 10/12/16 [History] Hydrocodone/Acetaminophen [Hydrocodon-Acetaminophn 10-325] 1 ea PEG UD 10/12/16 [History] Ipratropium/Albuterol Sulfate [Combivent Respimat Common Canister] 1 puff IH QID 10/12/16 [History] Mirtazapine 45 mg PEG DAILY 10/12/16 [History] Nitroglycerin 0.4 mg (Ed) [Nitrostat 0.4 MG (ED)] 0.4 mg PO Q5MIN PRN MR X 3 PRN 10/12/16 [History] Ondansetron HCl [Zofran] 4 mg PO BID 10/12/16 [History] PANTOPRAZOLE 40 mg Tablet [Protonix 40MG Tablet] 40 mg PEG DAILY 10/12/16 [History] Polyethylene Glycol 3350 17 gm PEG UD 10/12/16 [History] Venlafaxine HCl [Venlafaxine HCl ER] 75 mg PEG TID 10/12/16 [History] Cetirizine HCl [Zyrtec] 10 mg PEG DAILY 01/01/18 [History] Quetiapine Fumarate [Seroquel] 100 mg PEG BID 01/01/18 [History] Tizanidine HCl 4 mg [Zanaflex 4 MG] 4 mg PEG TID 01/01/18 [History] Hx Tetanus, Diphtheria Vaccination/Date Given: Yes Hx Influenza Vaccination/Date Given: Yes Hx Pneumococcal Vaccination/Date Given: Yes Immunizations Up to Date: Yes - Review of Systems Constitutional: No Symptoms Abdominal/Gastrointestinal: Other (black fluid in feeduing tube.) All Other Systems: Reviewed and Negative - Past Medical History Pertinent Past Medical History: Yes Neurological History: No Pertinent History ENT History: Cataracts Cardiac History: No Pertinent History Respiratory History: Emphysema Endocrine Medical History: No Pertinent History Musculoskeletal History: Other GI Medical History: Esophageal Disorder, GERD, Hemorrhoids, Hernia History: Other Psycho-Social History: Anxiety, Depression Male Reproductive Disorders: No Pertinent History Other Medical History: states emphasema r/t connective disease,and "really thin bones" - Past Surgical History Past Surgical History: Yes Neuro Surgical History: No Pertinent History Cardiac: No Pertinent History Respiratory: Lobectomy Gastrointestinal: Hernia Repair, Other Genitourinary: No Pertinent History Musculoskeletal: Orthopedic Surgery Male Surgical History: No Pertinent History Other Surgical History: left knee "polyp or blockage removed,not cancer 2015", aug 2017 had esoph/hiatel hernia/stomach surgery in [facility] ,also at this time left clavicle bone removed and place at stomach to wrap remainder of stomach around it. feeding tube - Social History Smoking Status: Former smoker Exposure to second hand smoke: No Drug Use: none Patient Lives Alone: No - Nursing Vital Signs Nursing Vital Signs: Initial Vital Signs Temperature 98.9 F 01/28/18 18:20 Pulse Rate 104 H 01/28/18 18:20 Respiratory Rate 18 01/28/18 18:20 Blood Pressure 102/77 01/28/18 18:20 O2 Sat by Pulse Oximetry 100 01/28/18 18:20 Pain Scale Pain Intensity 4 - Physical Exam General Appearance: no apparent distress Eye Exam: eyes nml inspection Ears, Nose, Throat Exam: normal ENT inspection Neck Exam: normal inspection, non-tender, supple Respiratory Exam: normal breath sounds, lungs clear, airway intact, other (lefy clavicle is removed, extensive scarring, and long surgical wound over the mid sternal line, there is a fistule opening with granulation over the left, lower, anterior chest.), No chest tenderness, No respiratory distress Cardiovascular Exam: regular rate/rhythm, normal heart sounds, normal peripheral pulses, No murmur Gastrointestinal/Abdomen Exam: soft, normal bowel sounds, other (LUQ: feeding tube in place, black liquid inside), No tenderness, No distention, No mass, No guarding, No pulsatile mass Rectal Exam: normal exam, No mass, No black stool, No tenderness Neurologic Exam: alert, oriented x 3, normal mood/affect Skin Exam: normal color, warm, dry, No rash Lymphatic Exam: No adenopathy SpO2 Interpretation: normal SpO2: 100 Oxygen Delivery: Room Air - Course Nursing assessment & vital signs reviewed: Yes - Radiology Exams Chest X-ray Interpretation: Reviewed by me, Other (unchanged, frome previous one, bullous emphysema, lerge bore stent in place) - CT Exams Abdomen/Pelvis CT Interpretation: Negative, Other (PEG tip in stomach, fecal stasis, otherwise negative acute changes.) Ordered Tests: Active Orders 24 hr Category Date Time Status IV Insertion STAT Care 01/28/18 18:44 Active NPO (ED) STAT Care 01/28/18 18:44 Active ABDOMEN AND PELVIS W/0 CONTRAS [CT] Stat Exams 01/28/18 19:59 Taken CHEST 1 VIEW (PORTABLE) Stat Exams 01/28/18 19:13 Taken BLOOD CULTURE Stat Lab 01/28/18 19:00 Received CBC W DIFF Stat Lab 01/28/18 18:52 Completed CMP Stat Lab 01/28/18 18:52 Completed Lactic Acid Stat Lab 01/28/18 18:50 Completed OCCULT BLOOD, EMESIS Stat Lab 01/28/18 21:24 Completed Occult Blood,Stool Other Stat Lab 01/28/18 21:31 Completed PROTIME WITH INR Stat Lab 01/28/18 18:52 Completed PTT Stat Lab 01/28/18 18:52 Completed Medication Summary Generic Name Dose Route Start Last Admin Trade Name Freq PRN Reason Stop Dose Admin Sodium Chloride 1,000 mls @ 100 mls/hr 01/28/18 19:15 01/28/18 19:44 Sodium Chloride 0.9% 1000 Ml IV 02/27/18 19:14 100 mls/hr .Q10H NICKI Administration Pantoprazole Sodium 80 mg/ 500 mls @ 50 mls/hr 01/28/18 19:15 01/28/18 19:43 Sodium Chloride IV 02/27/18 19:14 Not Given .Q10H NICKI Discontinued Medications Generic Name Dose Route Start Last Admin Trade Name Freq PRN Reason Stop Dose Admin Sodium Chloride Confirm 01/28/18 19:35 Sodium Chloride 0.9% 500 Ml Administered 01/28/18 19:36 Dose 500 mls @ ud IV .STK-MED ONE Pantoprazole Sodium Confirm 01/28/18 19:35 Protonix 40 Mg Iv Administered 01/28/18 19:36 Dose 80 mg IV .STK-MED ONE Pantoprazole Sodium 80 mg 01/28/18 19:42 01/28/18 19:44 Protonix 40 Mg Iv IV 01/28/18 19:43 80 mg STAT ONE Administration Lab/Rad Data: Laboratory Result Diagrams 01/28/18 18:52 01/28/18 18:52 Laboratory Results 01/28/18 01/28/18 01/28/18 Range/Units 21:31 21:24 18:52 WBC (4.0-10.5) K/mm3 RBC (4.1-5.6) M/mm3 Hgb (12.5-18.0) gm/dl Hct (42-50) % MCV (78-100) fl MCH (26-32) pg MCHC (32-36) g/dl RDW (11.5-14.0) % Plt Count (150-450) K/mm3 MPV (6-9.5) fl Gran % (36.0-66.0) % Eos # (Auto) (0-0.5) Absolute Lymphs (auto) (1.0-4.6) Absolute Monos (auto) (0.0-1.3) Lymphocytes % (24.0-44.0) % Monocytes % (0.0-12.0) % Eosinophils % (0.00-5.0) % Basophils % (0.0-0.4) % Absolute Granulocytes (1.4-6.9) Basophils # (0-0.4) PT (8.83-12.87) SECONDS INR (0.8-3.0) APTT (24.1-36.1) SECONDS Sodium (137-145) mmol/L Potassium (3.5-5.1) mmol/L Chloride (98-107) mmol/L Carbon Dioxide (22-30) mmol/L Anion Gap (5-15) MEQ/L BUN (9-20) mg/dL Creatinine (0.66-1.25) mg/dL Estimated GFR ML/MIN Glucose (74-106) mg/dL Lactic Acid (0.4-2.0) Calcium (8.4-10.2) mg/dL Total Bilirubin (0.2-1.3) mg/dL AST (17-59) U/L ALT (0-50) U/L Alkaline Phosphatase (38-126) U/L Serum Total Protein (6.3-8.2) g/dL Albumin (3.5-5.0) g/dL Emesis for Blood POSITIVE (Negative) Stool Occult Blood POSITIVE (Negative) ABO Group O Rh Factor POSITIVE Antibody Screen NEGATIVE (NEGATIVE) 01/28/18 01/28/18 01/28/18 Range/Units 18:52 18:52 18:52 WBC 10.4 (4.0-10.5) K/mm3 RBC 3.62 L (4.1-5.6) M/mm3 Hgb 9.4 L (12.5-18.0) gm/dl Hct 30.0 L (42-50) % MCV 82.9 (78-100) fl MCH 25.9 L (26-32) pg MCHC 31.3 L (32-36) g/dl RDW 16.7 H (11.5-14.0) % Plt Count 504 H (150-450) K/mm3 MPV 10.8 H (6-9.5) fl Gran % 74.6 H (36.0-66.0) % Eos # (Auto) 0.37 (0-0.5) Absolute Lymphs (auto) 1.43 (1.0-4.6) Absolute Monos (auto) 0.78 (0.0-1.3) Lymphocytes % 13.7 L (24.0-44.0) % Monocytes % 7.5 (0.0-12.0) % Eosinophils % 3.6 (0.00-5.0) % Basophils % 0.6 (0.0-0.4) % Absolute Granulocytes 7.77 H (1.4-6.9) Basophils # 0.06 (0-0.4) PT 11.8 (8.83-12.87) SECONDS INR 1.01 (0.8-3.0) APTT 38.9 H (24.1-36.1) SECONDS Sodium 140 (137-145) mmol/L Potassium 4.4 (3.5-5.1) mmol/L Chloride 103 (98-107) mmol/L Carbon Dioxide 29 (22-30) mmol/L Anion Gap 12.2 (5-15) MEQ/L BUN 37 H (9-20) mg/dL Creatinine 0.63 L (0.66-1.25) mg/dL Estimated GFR > 60.0 ML/MIN Glucose 89 (74-106) mg/dL Lactic Acid (0.4-2.0) Calcium 9.2 (8.4-10.2) mg/dL Total Bilirubin < 0.10 L (0.2-1.3) mg/dL AST 14 L (17-59) U/L ALT 8 (0-50) U/L Alkaline Phosphatase 102 (38-126) U/L Serum Total Protein 7.2 (6.3-8.2) g/dL Albumin 3.8 (3.5-5.0) g/dL Emesis for Blood (Negative) Stool Occult Blood (Negative) ABO Group Rh Factor Antibody Screen (NEGATIVE) 01/28/18 Range/Units 18:50 WBC (4.0-10.5) K/mm3 RBC (4.1-5.6) M/mm3 Hgb (12.5-18.0) gm/dl Hct (42-50) % MCV (78-100) fl MCH (26-32) pg MCHC (32-36) g/dl RDW (11.5-14.0) % Plt Count (150-450) K/mm3 MPV (6-9.5) fl Gran % (36.0-66.0) % Eos # (Auto) (0-0.5) Absolute Lymphs (auto) (1.0-4.6) Absolute Monos (auto) (0.0-1.3) Lymphocytes % (24.0-44.0) % Monocytes % (0.0-12.0) % Eosinophils % (0.00-5.0) % Basophils % (0.0-0.4) % Absolute Granulocytes (1.4-6.9) Basophils # (0-0.4) PT (8.83-12.87) SECONDS INR (0.8-3.0) APTT (24.1-36.1) SECONDS Sodium (137-145) mmol/L Potassium (3.5-5.1) mmol/L Chloride (98-107) mmol/L Carbon Dioxide (22-30) mmol/L Anion Gap (5-15) MEQ/L BUN (9-20) mg/dL Creatinine (0.66-1.25) mg/dL Estimated GFR ML/MIN Glucose (74-106) mg/dL Lactic Acid 1.2 (0.4-2.0) Calcium (8.4-10.2) mg/dL Total Bilirubin (0.2-1.3) mg/dL AST (17-59) U/L ALT (0-50) U/L Alkaline Phosphatase (38-126) U/L Serum Total Protein (6.3-8.2) g/dL Albumin (3.5-5.0) g/dL Emesis for Blood (Negative) Stool Occult Blood (Negative) ABO Group Rh Factor Antibody Screen (NEGATIVE) - Progress Progress: unchanged Progress Note: 01/28/18 23:33 Pt remains hemodynamically stable, afebrile, denies severe pain, or distress. I called Dr Pro, woven wood shade assembler at [facility], also talked with Dr Greene, Thoracic surgeon and Dr Kim Hospitalist, they accepted patient to be transferred. Patient and his family informed, they agreed. He has been stable for the transport. Counseled pt/family regarding: lab results, diagnosis, need for follow-up, rad results - Departure Time of Disposition: 23:38 Departure Disposition: Transfer ([facility]) Clinical Impression: Gastrointestinal bleeding, upper Condition: Stable Critical Care Time: No Referrals: ANABELLE BEAR [Primary Care Provider] -
[2018-01-28] MEDS ORDERED: PROTONIX 40 MG IV IV ONE ×2 (19:35→19:42)
[2018-01-28] MEDS ORDERED: Sodium Chloride 0.9% 500 ML 500 ML IV ONE (19:35)
[2018-01-28] MEDS: PROTONIX 40 MG IV*** 80 MG in Sodium Chloride 0.9% 500 ML 500 ML IV SCH (19:43)
[2018-01-28] MEDS: Sodium Chloride 0.9% 1000 ML 1,000 ML IV SCH (19:44)
[2018-01-28 19:58] LABS: ABO TYPING O; Antibody Screen NEGATIVE (NEGATIVE); RH TYPING POSITIVE
[2018-01-29] MEDS ORDERED: DUONEB 0.5-3 MG/3 ml Neb IH ONE ×2 (02:44→02:48)
[2018-01-29] MEDS: Sodium Chloride 0.9% 1000 ML 1,000 ML IV SCH (06:09)
--- NOTE | 2018-01-29 07:53 | XRAY ---
Indication: Cough. Comparison: November 29, 2017. Portable chest unchanged again hyperinflated with bullous emphysema, right lung calcified granuloma, left upper lung suture material/clips, and left paramediastinum stent graft. Heart is not enlarged. No new/acute findings.
[2018-01-29] MEDS ORDERED: PROTONIX 40 MG IV IV ONE ×3 (07:54→07:59)
[2018-01-29] MEDS: PROTONIX 40 MG IV*** 80 MG in Sodium Chloride 0.9% 500 ML 500 ML IV SCH ×3 (07:57→22:14)
--- NOTE | 2018-01-29 07:59 | XRAY ---
Indication: Blood in peg tube. Multiple contiguous axial images obtained through the abdomen and pelvis without contrast as ordered. Comparison: None Lung bases demonstrates bullous emphysema and scattered fibrosis/scarring. No infiltrate or effusion. Heart is not enlarged. Anterior mediastinum demonstrates a partially visualized large bore stent graft with intraluminal and anterior mediastinal debris presumed surgically reconstructed esophagus. Epigastric peg tube with balloon tip in the gastric lumen and GE junction surgical clips. Noncontrasted bowel loops appear nonobstructed. There is moderate diffuse scatter colonic fecal debris throughout. Appendix not seen. No free fluid/air. Enlarged prostate gland impresses on the base of the bladder. Remaining liver, gallbladder, pancreas, spleen, adrenal glands, kidneys, ureters, and bladder appear unremarkable for noncontrast exam. Mild aortoiliac calcifications without AAA. Osseous structures intact. No ventral or inguinal hernias. Impression: 1. Fecal stasis without obstruction. 2. Incidental bullous emphysema and pulmonary fibrosis/scarring. 3. Postsurgical changes including partially visualized anterior mediastinal stent graft and PEG tube in situ. 4. Remaining CT abdomen/pelvis without contrast exam is negative. CTDI 10.79
[2018-01-29 08:09] LABS: Hematocrit 29.2 % (42-50); Hemoglobin 9.3 gm/dl (12.5-18.0); Mean Cell Volume 81.8 fl (78-100); Mean Corpuscular Hgb Concent. 31.8 g/dl (32-36); Mean Platelet Volume 9.7 fl (6-9.5); Platelet Count 483 K/mm3 (150-450); Red Blood Count 3.57 M/mm3 (4.1-5.6); Red Cell Distribution Width 16.5 % (11.5-14.0); White Blood Count 9.3 K/mm3 (4.0-10.5)
[2018-01-29] MEDS ORDERED: DUONEB 0.5-3 MG/3 ml Neb IH PRN (08:41)
[2018-01-29] MEDS ORDERED: Zofran 4 MG/2 ML VIAL IV PRN (08:41)
[2018-01-29] MEDS ORDERED: Sodium Chloride 0.9% 1000 ML 1,000 ML IV SCH (08:45)
[2018-01-29] MEDS ORDERED: Nitrostat 0.4 MG (ED) SL PRN (10:51)
[2018-01-29] MEDS ORDERED: Miralax Powder 17GM PACKET PEG PRN (11:00)
[2018-01-29] MEDS ORDERED: GLYCERIN ADULT SUPPOSITORY RC PRN (11:00)
[2018-01-29] MEDS ORDERED: REMERON 30 MG PEG SCH (11:00)
[2018-01-29] MEDS ORDERED: EFFEXOR 37.5 MG PEG SCH (11:00)
[2018-01-29] MEDS: Zanaflex 4 MG PEG SCH ×3 (11:31→22:26)
[2018-01-29] MEDS: Seroquel 100 MG PEG SCH ×2 (11:32→22:26)
[2018-01-29] MEDS: ZOFRAN ODT 4 MG PO SCH ×2 (11:32→22:25)
[2018-01-29] MEDS: Norco 10/325 MG Tablet PEG PRN ×2 (11:36→15:38)
[2018-01-29] MEDS: CLARITIN 10 MG PEG SCH ×2 (11:36→11:39)
[2018-01-29] MEDS: DUONEB 0.5-3 MG/3 ml Neb IH SCH ×3 (11:48→19:58)
[2018-01-29] MEDS: ADVAIR 250-50 DISKUS 14 DOSE IH SCH ×2 (12:11→19:58)
--- NOTE | 2018-01-29 12:18 | PCM.HP ---
History of Present Illness - Chief Complaint Chief Complaint: upper gi bleeding Date: 01/29/18 History of Present Illness: is a 57 year old male. with history complicated by multiple emergency surgeries with resulting loww of part of his left ribs and clavicle and stent from esophagus to stomach and feeding tube in place with several exchanges. He is following with GI and surgery and yesterday began noticing black fluid in his G tube and in his bowels that appeared to be blood. He came to ED and it was occult positive for bleeding and apparently black coffee ground material per ED physician. His surgeons and GI specialists at were contacted who recommended PPI gtt and transfer to and he was accepted however they never called back for a bed and he spent the night in the ED. They are still waiting for a bed and thus he was admitted to the floor on telemetry now that he is stable with no active bleeding and stable vital signs. He is tired from being in the ED where they had no air conditioning and not sleeping all night but otherwise feeling well. - Review of Systems Constitutional: No Fever, No Chills Eyes: No Symptoms Ears, Nose, & Throat: No Symptoms Respiratory: No Cough, No Short Of Breath Cardiac: No Chest Pain, No Edema, No Syncope Abdominal/Gastrointestinal: No Abdominal Pain, No Nausea, No Vomiting, No Diarrhea Genitourinary Symptoms: No Dysuria Musculoskeletal: No Back Pain, No Neck Pain Skin: No Rash Neurological: No Dizziness, No Focal Weakness, No Sensory Changes Psychological: No Symptoms Endocrine: No Symptoms Hematologic/Lymphatic: No Symptoms Immunological/Allergic: No Symptoms Medications & Allergies Home Medications: Home Medication List Aspirin 81 mg PEG DAILY 10/12/16 [History Confirmed 01/29/18] Fluticasone/Salmeterol [Advair 250-50 Diskus] 1 puff IH HS 10/12/16 [History Confirmed 01/29/18] Glycerin [Suppository] 1 each RC UD 10/12/16 [History Confirmed 01/28/18] Hydrocodone/Acetaminophen [Hydrocodon-Acetaminophn 10-325] 1 ea PEG UD 10/12/16 [History Confirmed 01/29/18] Ipratropium/Albuterol Sulfate [Combivent Respimat Common Canister] 1 puff IH QID 10/12/16 [History Confirmed 01/29/18] Mirtazapine 45 mg PEG HS 10/12/16 [History Confirmed 01/29/18] Nitroglycerin 0.4 mg (Ed) [Nitrostat 0.4 MG (ED)] 0.4 mg PO Q5MIN PRN MR X 3 PRN 10/12/16 [History Confirmed 01/28/18] Ondansetron HCl [Zofran] 4 mg PO BID 10/12/16 [History Confirmed 01/28/18] PANTOPRAZOLE 40 mg Tablet [Protonix 40MG Tablet] 40 mg PEG DAILY 10/12/16 [History Confirmed 01/29/18] Polyethylene Glycol 3350 17 gm PEG UD 10/12/16 [History Confirmed 01/29/18] Venlafaxine HCl [Venlafaxine HCl ER] 75 mg PEG TID 10/12/16 [History Confirmed 01/29/18] Cetirizine HCl [Zyrtec] 10 mg PEG DAILY 01/01/18 [History Confirmed 01/29/18] Quetiapine Fumarate [Seroquel] 100 mg PEG BID 01/01/18 [History Confirmed ] Tizanidine HCl 4 mg [Zanaflex 4 MG] 4 mg PEG TID 01/01/18 [History Confirmed 01/29/18] Smz/Tmp Suspension [Septra Suspension] 20 ml G-TUBE BID #400 ml 01/14/18 [ Rx Confirmed 01/29/18] Non-Formulary Drug [Non-Formulary Item] 1 dose PEG DAILY 01/29/18 [History Confirmed 01/29/18] Allergies/Adverse Reactions: Allergies Allergy/AdvReac Type Severity Reaction Status Date / Time Penicillins Allergy Unknown Verified 01/28/18 18:33 acetaminophen [From Percocet] AdvReac Itching Verified 01/28/18 18:33 codeine AdvReac Itching Verified 01/28/18 18:33 morphine AdvReac Itching Verified 01/28/18 18:33 naproxen AdvReac Rash Verified 01/28/18 18:33 oxycodone [From Percocet] AdvReac Itching Verified 01/28/18 18:33 - Past Medical History Past Medical History: Yes Neurological History: No Pertinent History ENT History: Cataracts Cardiac History: No Pertinent History Respiratory History: Emphysema Endocrine Medical History: No Pertinent History Musculoskelatal History: Other GI Medical History: Esophageal Disorder, GERD, Hemorrhoids, Hernia History: No Pertinent History Pyscho-Social History: Anxiety, Depression Male Reproductive Disorders: No Pertinent History Comment: 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 ,also at this time left clavicle bone removed and place at stomach to wrap remainder of stomach around it. peg tube has been replaced x2. feeding tube - Social History Smoking Status: Former smoker Exposure to second hand smoke: No Alcohol: None Drug Use: none - Physical Exam Vital Signs: Vital Signs - 24 hr Temp Pulse Resp BP Pulse Ox 01/29/18 12:00 88 16 102/64 93 L 01/29/18 11:48 78 15 99 01/29/18 09:42 74 16 97 01/29/18 09:13 98.9 F 80 15 102/70 95 01/29/18 08:40 83 18 102/70 97 01/29/18 07:56 88 16 95/72 97 01/29/18 06:37 78 16 104/75 97 01/29/18 02:49 84 18 96 01/29/18 00:50 91 H 100/76 97 01/29/18 00:13 111/75 96 01/28/18 23:38 100 01/28/18 23:00 106/77 96 01/28/18 22:08 93 H 16 106/67 98 01/28/18 21:00 99 H 16 107/74 99 01/28/18 19:44 95 H 18 100/71 100 01/28/18 18:20 98.9 F 104 H 18 102/77 100 General Appearance: no apparent distress, alert Neurologic Exam: alert, oriented x 3, cooperative, normal mood/affect, nml cerebellar function, sensation nml, No motor deficits Eye Exam: PERRL/EOMI, eyes nml inspection Ears, Nose, Throat Exam: normal ENT inspection, pharynx normal, moist mucous membranes Neck Exam: normal inspection, non-tender, supple, full range of motion Respiratory Exam: normal breath sounds, lungs clear, other (left upper ribs and clavical surgically absent. the left central mid chest with the area of previous infetion is covered but still red slightly at the site.), No respiratory distress Cardiovascular Exam: regular rate/rhythm, normal heart sounds, normal peripheral pulses Gastrointestinal/Abdomen Exam: soft, normal bowel sounds, other (multiple scars healing and Gtube in left upper quadrant with dark fluid in the tube), No tenderness, No mass Back Exam: normal inspection, No CVA tenderness, No vertebral tenderness Extremity Exam: normal inspection, pelvis stable Skin Exam: normal color, warm, dry, other (left anterior chest with previous abscess area still with some mild redness he states has been chronic), No rash Lymphatic Exam: No adenopathy Results - Other Procedures and Tests Respiratory Therapy 01/29/18 08:41 Oxygen NASAL CANNULA 2 lpm 01/29/18 11:00 Respiratory MDI BID Respiratory Nebulizer Q4H Assessment/Plan (1) Gastrointestinal bleeding, upper Current Visit: Yes Status: Acute Assessment & Plan: hgb stable vital stable. He has extensive surgical history and distorted anatomy. Per ER his doctor's at recommend transfer to for scope and further evaluation and npo with ppi gtt. which he is currently on will go ahead and give meds for now with exception of will decrease the effecor from 75 mg tid to 75 mg daily to wean given possible worsening of the gi bleeding with the snri. Code(s): K92.2 - GASTROINTESTINAL HEMORRHAGE, UNSPECIFIED (2) Wound infection Current Visit: Yes Status: Chronic Assessment & Plan: he has completed the antibiotic bactrim and was mrsa + culture in the past but concern for possible re-infection vs chronic redness re-examin in am and start back abx if infetion and culture if any drainage. Code(s): T14.8XXA - OTHER INJURY OF UNSPECIFIED BODY REGION, INITIAL ENCOUNTER; L08.9 - LOCAL INFECTION OF THE SKIN AND SUBCUTANEOUS TISSUE, UNSP
[2018-01-29] MEDS: D5W/0.45NS W/ 20mEq KCl 1000 ML 1,000 ML IV SCH ×2 (12:48→22:14)
[2018-01-29] MEDS: SODIUM BICARBONATE PO PRN ×2 (14:12→22:20)
[2018-01-29] MEDS ORDERED: VENLAFAXINE HCL 75 MG PEG SCH (15:00)
[2018-01-29] MEDS ORDERED: Advair Hfa 115/21 Common canister IH SCH (19:00)
[2018-01-29] MEDS ORDERED: NON-FORMULARY ITEM (Ondansetron Hcl [Zofran] 4 MG) PO SCH (22:00)
[2018-01-29] MEDS: REMERON 30 MG PEG SCH (22:26)
[2018-01-30 06:01] LABS: Hematocrit 29.1 % (42-50); Hemoglobin 9.2 gm/dl (12.5-18.0); Mean Corpuscular Hemoglobin 25.9 pg (26-32); Mean Corpuscular Hgb Concent. 31.6 g/dl (32-36); Mean Platelet Volume 10.2 fl (6-9.5); Platelet Count 458 K/mm3 (150-450); Red Blood Count 3.55 M/mm3 (4.1-5.6); Red Cell Distribution Width 16.6 % (11.5-14.0); White Blood Count 7.2 K/mm3 (4.0-10.5)
[2018-01-30 06:33] LABS: ALBUMIN 3.5 g/dL (3.5-5.0); ALKALINE PHOSPHATASE 106 U/L (38-126); ANION GAP 9.8 MEQ/L (5-15); BILIRUBIN,TOTAL < 0.10 mg/dL (0.2-1.3); BLOOD UREA NITROGEN 12 mg/dL (9-20); CHLORIDE 110 mmol/L (98-107); Calcium 9.3 mg/dL (8.4-10.2); Carbon Dioxide 26 mmol/L (22-30); Creatinine 1 0.59 mg/dL (0.66-1.25); Glucose 98 mg/dL (74-106); Potassium 4.2 mmol/L (3.5-5.1); SGOT/AST 11 U/L (17-59); SGPT/ALT 9 U/L (0-50); SODIUM 142 mmol/L (137-145); Total Protein 6.8 g/dL (6.3-8.2)
[2018-01-30] MEDS: DUONEB 0.5-3 MG/3 ml Neb IH SCH ×6 (06:40→19:26)
[2018-01-30] MEDS: ADVAIR 250-50 DISKUS 14 DOSE IH SCH ×2 (06:40→19:26)
[2018-01-30] MEDS: D5W/0.45NS W/ 20mEq KCl 1000 ML 1,000 ML IV SCH ×2 (08:21→18:38)
[2018-01-30] MEDS: CLARITIN 10 MG PEG SCH (09:59)
[2018-01-30] MEDS ORDERED: Protonix 40MG Tablet PEG SCH (10:00)
[2018-01-30] MEDS ORDERED: NON-FORMULARY ITEM (Cetirizine Hcl [Zyrtec] 10 MG) PEG SCH (10:00)
[2018-01-30] MEDS ORDERED: EFFEXOR 37.5 MG PEG SCH (10:00)
[2018-01-30] MEDS: ZOFRAN ODT 4 MG PO SCH ×2 (10:00→22:24)
[2018-01-30] MEDS: Seroquel 100 MG PEG SCH ×2 (10:00→22:23)
[2018-01-30] MEDS ORDERED: MIRTAZAPINE 45 MG PEG SCH (10:00)
[2018-01-30] MEDS: Effexor XR 75 MG PEG SCH (10:00)
[2018-01-30] MEDS: Zanaflex 4 MG PEG SCH ×3 (10:01→22:23)
--- NOTE | 2018-01-30 10:04 | PCM.NOTE ---
Date and Time: 01/30/18 1004 OBJECTIVE DATA Vital Signs: Vital Signs - 24 hr Temp Pulse Resp BP Pulse Ox 01/30/18 06:53 98.1 F 90 18 103/70 96 01/30/18 06:40 86 16 97 01/30/18 03:00 98.4 F 81 16 100/67 95 01/29/18 23:00 98.1 F 89 16 89/54 94 L 01/29/18 19:58 86 16 98 01/29/18 19:47 98.4 F 77 16 88/53 97 01/29/18 17:58 94/49 01/29/18 16:00 98.3 F 72 18 87/50 97 01/29/18 15:00 74 16 98 01/29/18 12:00 88 16 102/64 93 L 01/29/18 11:48 78 15 99 Pain Assessment - Last Documented Pain Intensity 4 Pain Scale Used 0-10 Pain Scale Intake and Output: Intake & Output 01/27/18 01/28/18 01/29/18 01/30/18 11:59 11:59 11:59 11:59 Intake Total 2688 Output Total 2450 Balance 238 Weight 57.606 kg Lab Results: Lab Results-Last 24 Hours 01/30/18 01/30/18 Range/Units 05:25 05:25 WBC 7.2 (4.0-10.5) K/mm3 RBC 3.55 L (4.1-5.6) M/mm3 Hgb 9.2 L (12.5-18.0) gm/dl Hct 29.1 L (42-50) % MCV 82.0 (78-100) fl MCH 25.9 L (26-32) pg MCHC 31.6 L (32-36) g/dl RDW 16.6 H (11.5-14.0) % Plt Count 458 H (150-450) K/mm3 MPV 10.2 H (6-9.5) fl Sodium 142 (137-145) mmol/L Potassium 4.2 (3.5-5.1) mmol/L Chloride 110 H (98-107) mmol/L Carbon Dioxide 26 (22-30) mmol/L Anion Gap 9.8 (5-15) MEQ/L BUN 12 (9-20) mg/dL Creatinine 0.59 L (0.66-1.25) mg/dL Estimated GFR > 60.0 ML/MIN Glucose 98 (74-106) mg/dL Calcium 9.3 (8.4-10.2) mg/dL Total Bilirubin < 0.10 L (0.2-1.3) mg/dL AST 11 L (17-59) U/L ALT 9 (0-50) U/L Alkaline Phosphatase 106 (38-126) U/L Serum Total Protein 6.8 (6.3-8.2) g/dL Albumin 3.5 (3.5-5.0) g/dL
[2018-01-30] MEDS: SEPTRA SUSPENSION PEG SCH ×2 (12:28→22:25)
--- NOTE | 2018-01-30 14:33 | PCM.NOTE ---
Date and Time: 01/30/181428 Subjective Assessment: he is feeling better today since not getting sleep but the wound on the chest is more tender today and has a small amount of drainage starting to form. He has had a bm this am and was dark with some green no abdominal pain and no vomiting. Objective Exam General Appearance: no apparent distress, alert Neurologic Exam: alert, oriented x 3, cooperative, normal mood/affect, nml cerebellar function, sensation nml, No motor deficits Skin Exam: normal color, warm, dry, other (left chest with red area open wound warm tender with scant yellow discharge) Eye Exam: PERRL, EOMI, eyes nml inspection Ears, Nose, Throat Exam: normal ENT inspection, pharynx normal, moist mucous membranes Neck Exam: non-tender, supple Respiratory Exam: normal breath sounds, lungs clear, other (left clavicle and upper ribs surgically absent), No respiratory distress Cardiovascular Exam: regular rate/rhythm, normal heart sounds Gastrointestinal/Abdomen Exam: soft, other (gtube left upper quadrant), No tenderness, No mass Extremity Exam: normal inspection, normal range of motion Back Exam: normal inspection, normal range of motion, No CVA tenderness, No vertebral tenderness Male Genitalia Exam: deferred Rectal Exam: deferred OBJECTIVE DATA Vital Signs: Vital Signs - 24 hr Temp Pulse Resp BP Pulse Ox 01/30/18 11:00 97.7 F 83 18 92/61 97 01/30/18 10:55 84 16 96 01/30/18 06:53 98.1 F 90 18 103/70 96 01/30/18 06:40 86 16 97 01/30/18 03:00 98.4 F 81 16 100/67 95 01/29/18 23:00 98.1 F 89 16 89/54 94 L 01/29/18 19:58 86 16 98 01/29/18 19:47 98.4 F 77 16 88/53 97 01/29/18 17:58 94/49 01/29/18 16:00 98.3 F 72 18 87/50 97 01/29/18 15:00 74 16 98 Pain Assessment - Last Documented Pain Intensity 4 Pain Scale Used 0-10 Pain Scale Intake and Output: Intake & Output 01/28/18 01/29/18 01/30/18 01/31/18 11:59 11:59 11:59 11:59 Intake Total 2688 0 Output Total 2450 750 Balance 238 -750 Weight 57.606 kg Lab Results: Lab Results-Last 24 Hours 01/30/18 01/30/18 Range/Units 05:25 05:25 WBC 7.2 (4.0-10.5) K/mm3 RBC 3.55 L (4.1-5.6) M/mm3 Hgb 9.2 L (12.5-18.0) gm/dl Hct 29.1 L (42-50) % MCV 82.0 (78-100) fl MCH 25.9 L (26-32) pg MCHC 31.6 L (32-36) g/dl RDW 16.6 H (11.5-14.0) % Plt Count 458 H (150-450) K/mm3 MPV 10.2 H (6-9.5) fl Sodium 142 (137-145) mmol/L Potassium 4.2 (3.5-5.1) mmol/L Chloride 110 H (98-107) mmol/L Carbon Dioxide 26 (22-30) mmol/L Anion Gap 9.8 (5-15) MEQ/L BUN 12 (9-20) mg/dL Creatinine 0.59 L (0.66-1.25) mg/dL Estimated GFR > 60.0 ML/MIN Glucose 98 (74-106) mg/dL Calcium 9.3 (8.4-10.2) mg/dL Total Bilirubin < 0.10 L (0.2-1.3) mg/dL AST 11 L (17-59) U/L ALT 9 (0-50) U/L Alkaline Phosphatase 106 (38-126) U/L Serum Total Protein 6.8 (6.3-8.2) g/dL Albumin 3.5 (3.5-5.0) g/dL Assessment/Plan (1) Gastrointestinal bleeding, upper Current Visit: Yes Status: Acute Assessment & Plan: controlled now on protonix still awaiting transfer to for endoscopy/ evaluation given hs complex surgical history and altered anatomy and esophageal stenting remains on gi rest with iv fluids hgb stable no significant active bleeding currently continue telemetry Code(s): K92.2 - GASTROINTESTINAL HEMORRHAGE, UNSPECIFIED (2) Wound infection Current Visit: Yes Status: Acute Assessment & Plan: left chest culture the drainage and start septra previous culture showed mrsa sensitve to septra Code(s): T14.8XXA - OTHER INJURY OF UNSPECIFIED BODY REGION, INITIAL ENCOUNTER; L08.9 - LOCAL INFECTION OF THE SKIN AND SUBCUTANEOUS TISSUE, UNSP
[2018-01-30] MEDS: PROTONIX 40 MG IV*** 80 MG in Sodium Chloride 0.9% 500 ML 500 ML IV SCH ×2 (15:10→15:30)
[2018-01-30] MEDS: SODIUM BICARBONATE PO PRN (15:16)
[2018-01-30] MEDS: Norco 10/325 MG Tablet PEG PRN ×2 (15:16→19:54)
[2018-01-30] MEDS: REMERON 30 MG PEG SCH (22:23)
[2018-01-31] MEDS: D5W/0.45NS W/ 20mEq KCl 1000 ML 1,000 ML IV SCH ×3 (03:05→22:55)
[2018-01-31] MEDS: PROTONIX 40 MG IV*** 80 MG in Sodium Chloride 0.9% 500 ML 500 ML IV SCH ×2 (03:05→13:37)
[2018-01-31 05:54] LABS: Hematocrit 29.1 % (42-50); Hemoglobin 9.2 gm/dl (12.5-18.0); Mean Cell Volume 82.2 fl (78-100); Mean Corpuscular Hgb Concent. 31.6 g/dl (32-36); Mean Platelet Volume 10.2 fl (6-9.5); Platelet Count 447 K/mm3 (150-450); Red Blood Count 3.54 M/mm3 (4.1-5.6); Red Cell Distribution Width 16.5 % (11.5-14.0); White Blood Count 6.6 K/mm3 (4.0-10.5)
[2018-01-31 06:03] LABS: Mean Corpuscular Hemoglobin 25.9 pg (26-32)
[2018-01-31 06:10] LABS: ALBUMIN 3.3 g/dL (3.5-5.0); ALKALINE PHOSPHATASE 104 U/L (38-126); ANION GAP 11.4 MEQ/L (5-15); BILIRUBIN,TOTAL < 0.10 mg/dL (0.2-1.3); BLOOD UREA NITROGEN 7 mg/dL (9-20); CHLORIDE 110 mmol/L (98-107); Calcium 9.2 mg/dL (8.4-10.2); Carbon Dioxide 26 mmol/L (22-30); Creatinine 1 0.66 mg/dL (0.66-1.25); Glucose 82 mg/dL (74-106); Potassium 4.1 mmol/L (3.5-5.1); SGOT/AST 10 U/L (17-59); SGPT/ALT 8 U/L (0-50); SODIUM 143 mmol/L (137-145); Total Protein 6.6 g/dL (6.3-8.2)
[2018-01-31] MEDS: ADVAIR 250-50 DISKUS 14 DOSE IH SCH ×2 (06:45→18:54)
[2018-01-31] MEDS: DUONEB 0.5-3 MG/3 ml Neb IH SCH ×4 (06:45→18:53)
--- NOTE | 2018-01-31 09:04 | PCM.DS ---
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 He apparently had 2 PEG tubes replaced recently. He was supposed to be transferred to [facility] but so far they haven't had any beds. He has not had further bleeding here. He did start to have exudate from the midline chest wound and has been treated with po bactrim (was apparently previously cultured and found to have MRSA). His hgb is stable, around 9.2. He has been NPO since admission, in the hopes that he would soon have a procedure at . However apparently there will be no bed available until tonight, so I have let him resume PEG feeds at 1/2 the normal volume (his last PEG intake was 3d ago). He has been on D5 1/2 NS. Blood pressures are somewhat low but stable at approximately 90-100 systolic.He is on contact precautions for MRSA. WBC has been normal throughout. His platelets were initially elevated but are within the normal range today. - Vitals & Intake/Output Vital Signs: Vital Signs Temperature 98.4 F 01/31/18 07:00 Pulse Rate 84 01/31/18 07:00 Respiratory Rate 18 01/31/18 07:00 Blood Pressure 103/60 01/31/18 07:00 O2 Sat by Pulse Oximetry 92 L 01/31/18 07:00 Intake & Output: Intake & Output 01/28/18 01/29/18 01/30/18 01/31/18 11:59 11:59 11:59 11:59 Intake Total 2688 3364 Output Total 2450 2210 Balance 238 1154 Weight 57.606 kg - Lab Result Diagrams: 01/31/18 05:15 01/31/18 05:15 Lab Results-Last 24 Hrs: Lab Results-Last 24 Hours 01/31/18 01/31/18 Range/Units 05:15 05:15 WBC 6.6 (4.0-10.5) K/mm3 RBC 3.54 L (4.1-5.6) M/mm3 Hgb 9.2 L (12.5-18.0) gm/dl Hct 29.1 L (42-50) % MCV 82.2 (78-100) fl MCH 25.9 L (26-32) pg MCHC 31.6 L (32-36) g/dl RDW 16.5 H (11.5-14.0) % Plt Count 447 (150-450) K/mm3 MPV 10.2 H (6-9.5) fl Sodium 143 (137-145) mmol/L Potassium 4.1 (3.5-5.1) mmol/L Chloride 110 H (98-107) mmol/L Carbon Dioxide 26 (22-30) mmol/L Anion Gap 11.4 (5-15) MEQ/L BUN 7 L (9-20) mg/dL Creatinine 0.66 (0.66-1.25) mg/dL Estimated GFR > 60.0 ML/MIN Glucose 82 (74-106) mg/dL Calcium 9.2 (8.4-10.2) mg/dL Total Bilirubin < 0.10 L (0.2-1.3) mg/dL AST 10 L (17-59) U/L ALT 8 (0-50) U/L Alkaline Phosphatase 104 (38-126) U/L Serum Total Protein 6.6 (6.3-8.2) g/dL Albumin 3.3 L (3.5-5.0) g/dL Micro Results-Entire Visit: Microbiology 01/30/18 15:50 Wound Culture - Preliminary Chest - Left Upper NO GROWTH TO DATE - Procedures and Test Procedures and Tests throughout Hospitalization: Therapy Orders & Screens 01/29/18 08:41 Oxygen NASAL CANNULA 2 lpm Comment: Diagnosis: Shortness of Breath 01/29/18 11:00 Respiratory MDI BID Comment: Diagnosis: gib 01/30/18 07:00 Respiratory Nebulizer QID Comment: Diagnosis: gib Discharge Exam General Appearance: no apparent distress, alert, cachetic Neurologic Exam: oriented x 3, cooperative Skin Exam: warm, dry, No rash Respiratory Exam: normal breath sounds, lungs clear, other (chest with midline wound, healing. To the L of the midline there is an approximately 1x1.2 cm defect, no active exudate, but approx 4x4 cm of erythema and an approx 2x3cm area of fluctuance. ttp.), No crackles/rales, No rhonchi, No wheezing Cardiovascular Exam: regular rate/rhythm, normal heart sounds, No murmur Gastrointestinal/Abdomen Exam: soft, other (PEG in place, no exudate/erythema at site.), No distention Extremity Exam: normal inspection, No pedal edema, No swelling Back Exam: normal inspection, No rash Final Diagnosis/Problem List - Final Discharge Diagnosis/Problem (1) Esophageal stricture Current Visit: Yes Status: Acute Assessment & Plan: Pt needs treated at due to multiple surgeries previously done. (2) Gastrointestinal bleeding, upper Current Visit: Yes Status: Acute Assessment & Plan: Hgb is stable here. (3) Wound infection Current Visit: Yes Status: Acute Assessment & Plan: on bactrim po. Systemically doing well. Would benefit from I&D, in my opinion, but with all the changes in his anatomy s/p multiple surgeries, I would really rather his surgeons at do that. 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 - Discharge Disposition: XFER OTHER Condition: Stable Prescriptions: No Action Fluticasone/Salmeterol [Advair 250-50 Diskus] 1 puff IH HS Venlafaxine HCl [Venlafaxine HCl ER] 75 mg PEG TID Polyethylene Glycol 3350 17 gm PEG UD PANTOPRAZOLE 40 mg Tablet [Protonix 40MG Tablet] 40 mg PEG DAILY Ondansetron HCl [Zofran] 4 mg PO BID Nitroglycerin 0.4 mg (Ed) [Nitrostat 0.4 MG (ED)] 0.4 mg PO Q5MIN PRN MR X 3 PRN PRN Reason: Chest Pain Mirtazapine 45 mg PEG HS Hydrocodone/Acetaminophen [Hydrocodon-Acetaminophn 10-325] 1 ea PEG UD Glycerin [Suppository] 1 each RC UD Ipratropium/Albuterol Sulfate [Combivent Respimat Common Canister] 1 puff IH QID Aspirin 81 mg PEG DAILY Tizanidine HCl 4 mg [Zanaflex 4 MG] 4 mg PEG TID Cetirizine HCl [Zyrtec] 10 mg PEG DAILY Quetiapine Fumarate [Seroquel] 100 mg PEG BID Smz/Tmp Suspension [Septra Suspension] 20 ml G-TUBE BID #400 ml Non-Formulary Drug [Non-Formulary Item] 1 dose PEG DAILY Follow up with: ANABELLE BEAR [Primary Care Provider] - 1 Week
[2018-01-31] MEDS: CLARITIN 10 MG PEG SCH (09:20)
[2018-01-31] MEDS: Effexor XR 75 MG PEG SCH (09:20)
[2018-01-31] MEDS: ZOFRAN ODT 4 MG PO SCH ×2 (09:20→23:20)
[2018-01-31] MEDS: Zanaflex 4 MG PEG SCH ×3 (09:20→23:23)
[2018-01-31] MEDS: Seroquel 100 MG PEG SCH ×2 (09:20→23:23)
[2018-01-31] MEDS: SEPTRA SUSPENSION PEG SCH ×2 (09:21→23:25)
[2018-01-31] MEDS ORDERED: PHARMACY DOSING REQUEST MC ONE (09:26)
[2018-01-31] MEDS: Norco 10/325 MG Tablet PEG PRN ×3 (09:29→23:32)
[2018-01-31] MEDS: REMERON 30 MG PEG SCH (23:20)
[2018-02-01] MEDS: PROTONIX 40 MG IV*** 80 MG in Sodium Chloride 0.9% 500 ML 500 ML IV SCH ×2 (01:17→11:35)
[2018-02-01] MEDS: Norco 10/325 MG Tablet PEG PRN (05:57)
[2018-02-01] MEDS: DUONEB 0.5-3 MG/3 ml Neb IH SCH ×2 (06:51→10:42)
[2018-02-01] MEDS: ADVAIR 250-50 DISKUS 14 DOSE IH SCH (06:51)
[2018-02-01] MEDS: D5W/0.45NS W/ 20mEq KCl 1000 ML 1,000 ML IV SCH (07:02)
[2018-02-01] MEDS ORDERED: DILAUDID 2 MG INJECTION IV STA (07:44)
[2018-02-01] MEDS: CLARITIN 10 MG PEG SCH (07:57)
[2018-02-01] MEDS: ZOFRAN ODT 4 MG PO SCH (07:57)
[2018-02-01] MEDS: Effexor XR 75 MG PEG SCH (07:57)
[2018-02-01] MEDS: SEPTRA SUSPENSION PEG SCH (07:58)
[2018-02-01] MEDS: Zanaflex 4 MG PEG SCH ×2 (07:58→15:08)
[2018-02-01] MEDS: Seroquel 100 MG PEG SCH (07:58)
--- NOTE | 2018-02-01 08:43 | PCM.DS ---
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 He apparently had 2 PEG tubes replaced recently. He was supposed to be transferred to [facility] but so far they haven't had any beds. He has not had further bleeding here. He did start to have exudate from the midline chest wound and has been treated with po bactrim (was apparently previously cultured and found to have MRSA). His hgb is stable, around 9.2. He was initially NPO, in the hopes that he would soon have a procedure at . However yesterday we resumed PEG feeds at 1/2 th enormal volume and he did well. He has also been on D5 1/2 NS. Blood pressures are somewhat low but stable at approximately 80-100 systolic.He is on contact precautions for MRSA. WBC has been normal throughout. His platelets were initially elevated but then normalized. - Vitals & Intake/Output Vital Signs: Vital Signs Temperature 98.6 F 02/01/18 07:15 Pulse Rate 91 H 02/01/18 07:15 Respiratory Rate 20 02/01/18 07:15 Blood Pressure 100/63 02/01/18 07:15 O2 Sat by Pulse Oximetry 94 L 02/01/18 07:15 Intake & Output: Intake & Output 01/29/18 01/30/18 01/31/18 02/01/18 11:59 11:59 11:59 11:59 Intake Total 2688 3364 0 Output Total 2450 2210 1200 Balance 238 1154 -1200 Weight 57.606 kg 57.606 kg - Lab Result Diagrams: 01/31/18 05:15 01/31/18 05:15 Micro Results-Entire Visit: Microbiology 01/30/18 15:50 Wound Culture - Preliminary Chest - Left Upper NO GROWTH TO DATE - Procedures and Test Procedures and Tests throughout Hospitalization: Therapy Orders & Screens 01/29/18 08:41 Oxygen NASAL CANNULA 2 lpm Comment: Diagnosis: Shortness of Breath 01/29/18 11:00 Respiratory MDI BID Comment: Diagnosis: gib 01/30/18 07:00 Respiratory Nebulizer QID Comment: Diagnosis: gib Discharge Exam General Appearance: no apparent distress, alert Neurologic Exam: oriented x 3, cooperative Skin Exam: warm, dry, other (central chest wiht approx 4x4cm area of erythema wiht fluctuance. Superior to this there is a defect approx 1.5x1cm that initially had some bright red bleeding then resolved. The fluctuant area was incised (after cleaning wiht betadine swabs x3) with a #11 scalpel with return of approx 10cc pus. Culture was done.), No rash Neck Exam: normal inspection Respiratory Exam: normal breath sounds, lungs clear, other (midline scar, healing), No crackles/rales, No rhonchi, No wheezing Cardiovascular Exam: regular rate/rhythm, normal heart sounds, No murmur Gastrointestinal/Abdomen Exam: soft, normal bowel sounds, other (midline scar, well healed. PEG tube in place.), No tenderness, No distention Final Diagnosis/Problem List - Final Discharge Diagnosis/Problem (1) Esophageal stricture Current Visit: Yes Status: Acute Assessment & Plan: Got a call from yesterday, may be able to have a procedure tomorrow. Nursing is checking on that. (2) Gastrointestinal bleeding, upper Current Visit: Yes Status: Acute Assessment & Plan: Has been stable here. Will recheck CBC today. Supposed to transfer to when they have a bed. (3) Wound infection Current Visit: Yes Status: Acute Assessment & Plan: on po bactrim. Pt tolerated I&D well. 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 - Discharge Disposition: XFER OTHER Condition: Stable Prescriptions: No Action Fluticasone/Salmeterol [Advair 250-50 Diskus] 1 puff IH HS Venlafaxine HCl [Venlafaxine HCl ER] 75 mg PEG TID Polyethylene Glycol 3350 17 gm PEG UD PANTOPRAZOLE 40 mg Tablet [Protonix 40MG Tablet] 40 mg PEG DAILY Ondansetron HCl [Zofran] 4 mg PO BID Nitroglycerin 0.4 mg (Ed) [Nitrostat 0.4 MG (ED)] 0.4 mg PO Q5MIN PRN MR X 3 PRN PRN Reason: Chest Pain Mirtazapine 45 mg PEG HS Hydrocodone/Acetaminophen [Hydrocodon-Acetaminophn 10-325] 1 ea PEG UD Glycerin [Suppository] 1 each RC UD Ipratropium/Albuterol Sulfate [Combivent Respimat Common Canister] 1 puff IH QID Aspirin 81 mg PEG DAILY Tizanidine HCl 4 mg [Zanaflex 4 MG] 4 mg PEG TID Cetirizine HCl [Zyrtec] 10 mg PEG DAILY Quetiapine Fumarate [Seroquel] 100 mg PEG BID Smz/Tmp Suspension [Septra Suspension] 20 ml G-TUBE BID #400 ml Non-Formulary Drug [Non-Formulary Item] 1 dose PEG DAILY Follow up with: ANABELLE BEAR [Primary Care Provider] - 1 Week
[2018-02-01 14:10] VITALS: O2SAT 95
[2018-02-01] MEDS ORDERED: Sodium Chloride 0.9% 100 ML IVPB 100 ML IV ONE (14:45)
[2018-02-01] MEDS ORDERED: Sodium Chloride 0.9% W/ 20 mEq KCl/LITER 1,000 ML IV SCH (14:45)
[2018-02-01] MEDS ORDERED: Sodium Chloride 0.9% 1000 ML 1,000 ML IV STA (14:50)
[2018-02-01] MEDS ORDERED: Cleocin Phosphate IV 600 MG/4 ML IV SCH (15:00)
[2018-02-01] MEDS ORDERED: CLINDAMYCIN-D5W 600 MG/50 ML*** 600 MG/50 ML BAG IV SCH (15:15)
[2018-02-01 15:41] LABS: BASOPHIL % 0.1 % (0.0-0.4); Basophil (Absolute #) 0.02 (0-0.4); Eosinophil % 0.4 % (0.00-5.0); Eosinophil (Absolute #) 0.08 (0-0.5); Granulocyte Absolute (ANC) 18.81 (1.4-6.9); Granulocytes % 88.3 % (36.0-66.0); Hematocrit 30.4 % (42-50); Hemoglobin 9.6 gm/dl (12.5-18.0); Lymphocyte (Absolute #) 1.02 (1.0-4.6); Lymphocytes % 4.8 % (24.0-44.0); Mean Cell Volume 82.8 fl (78-100); Mean Corpuscular Hgb Concent. 31.6 g/dl (32-36); Mean Platelet Volume 9.9 fl (6-9.5); Monocyte (Absolute #) 1.37 (0.0-1.3); Monocytes % 6.4 % (0.0-12.0); Platelet Count 524 K/mm3 (150-450); Red Blood Count 3.67 M/mm3 (4.1-5.6); Red Cell Distribution Width 16.7 % (11.5-14.0); White Blood Count 21.3 K/mm3 (4.0-10.5)
[2018-02-01 15:56] LABS: ALBUMIN 3.9 g/dL (3.5-5.0); ALKALINE PHOSPHATASE 107 U/L (38-126); ANION GAP 15.1 MEQ/L (5-15); BILIRUBIN,TOTAL < 0.10 mg/dL (0.2-1.3); BLOOD UREA NITROGEN 9 mg/dL (9-20); CHLORIDE 108 mmol/L (98-107); Calcium 9.1 mg/dL (8.4-10.2); Carbon Dioxide 21 mmol/L (22-30); Creatinine 1 0.72 mg/dL (0.66-1.25); Glucose 61 mg/dL (74-106); Potassium 4.1 mmol/L (3.5-5.1); SGOT/AST 14 U/L (17-59); SGPT/ALT 11 U/L (0-50); SODIUM 140 mmol/L (137-145); Total Protein 7.2 g/dL (6.3-8.2)
--- NOTE | 2018-02-01 16:14 | XRAY ---
Indication: Fever. Infection. Comparison: January 28, 2018. Portable chest demonstrates new subtle right base interstitial alveolar opacity. Also new 3 cm left base round opacity, possible round atelectasis. Stable bullous emphysema, calcified granulomas, left upper lung suture material/clips, and left paramediastinal and stent graft. Heart is not enlarged.
[2018-02-01 16:31] VITALS: BP 78/53; PULSE 117
[2018-02-01 16:32] LABS: Mean Corpuscular Hemoglobin 26.1 pg (26-32)
== END 2018-02-01 17:20 ==
LOC: ED 18:06 → ICU 01-29 09:01 → MED SURG 01-29 14:05
PROVIDERS: ADMIT Family Medicine; ATTEND Family Medicine
DX: K22.2 Esophageal obstruction (principal); K92.2 Gastrointestinal hemorrhage, unspecified; T14.8XXA Other injury of unspecified body region, initial encounter; L08.9 Local infection of the skin and subcutaneous tissue, unspecified; A49.02 Methicillin resistant Staphylococcus aureus infection, unspecified site; F41.8 Other specified anxiety disorders; Q87.40 Marfan syndrome, unspecified; Q79.6 Ehlers-Danlos syndromes; Z93.1 Gastrostomy status; Z87.891 Personal history of nicotine dependence
CPT/HCPCS: 36000; 36415; 71045; 74176; 80053; 82271; 82272; 83605; 85025; 85027; 85610; 85730; 86850; 86900; 86901; 87040; 87070; 93268; 94150; 94640; 94760; 96360; 96361; 96374; 99285; G0378; 96376; J1170; Q0162; A9270-GY

== ENCOUNTER 2018-03-15 19:23 | Emergency (ER) | payer OTHER ==
--- NOTE | 2018-03-15 20:01 | ERPHSYRPT ---
- History of Present Illness Time Seen by Provider: 03/15/18 19:56 Source: patient Exam Limitations: no limitations Patient Subjective Stated Complaint: wound from hiatal hernia surgery not heeling Triage Nursing Assessment: Pt c/o of a hiatal hernia surgery scar that was performed in August 2017 that has never healed, appears to be infected and has minimal drainage, area is redened and swollen, vitals wnl, has feeding tube, doesn't appear to be in any distress at this time Physician History: The patient is a 57-year-old male who presents with worsening local cellulitis of the upper left chest since yesterday. He had an esophageal stricture and hiatal hernia repair done in August by a surgeon in [place]. Since that time he has been fighting an infection near the site of the surgical scar in the chest. He has been on metronidazole 500 mg 3 times a day for the last 28 days and Cefpodoxime 200 mg 2 times a day for the last 28 days. He ran out of one of the antibiotics yesterday and he ran out of the other one today. He called his surgeon and primary care doctor who told him to come to the ER for evaluation. He denies fever or chills. Today there is some pus draining from the local wound. Yesterday there was blood draining from it. He denies fevers. His past medical history is significant for abdominal thoracic surgery , Stacey-Danlos syndrome, and GERD. Timing/Duration: yesterday, gradual onset, worse Quality: other (drainage) Severity: moderate Location: torso Possible Causes: other (surgical infection) Associated Symptoms: denies symptoms Allergies/Adverse Reactions: Penicillins Allergy (Unknown, Verified 03/15/18 19:38) acetaminophen [From Percocet] Adverse Reaction (Verified 03/15/18 19:38) Itching codeine Adverse Reaction (Verified 03/15/18 19:38) Itching morphine Adverse Reaction (Verified 03/15/18 19:38) Itching naproxen Adverse Reaction (Verified 03/15/18 19:38) Rash oxycodone [From Percocet] Adverse Reaction (Verified 03/15/18 19:38) Itching Home Medications: Aspirin 81 mg PEG DAILY 10/12/16 [History] Fluticasone/Salmeterol [Advair 250-50 Diskus] 1 puff IH BID 10/12/16 [History] Hydrocodone/Acetaminophen [Hydrocodon-Acetaminophn 10-325] 1 ea PEG UD 10/12/16 [History] Ipratropium/Albuterol Sulfate [Combivent Respimat Common Canister] 1 puff IH QID 10/12/16 [History] Mirtazapine 45 mg PEG HS 10/12/16 [History] Nitroglycerin 0.4 mg (Ed) [Nitrostat 0.4 MG (ED)] 0.4 mg PO Q5MIN PRN MR X 3 PRN 10/12/16 [History] Ondansetron HCl [Zofran] 4 mg PO Q4H PRN 10/12/16 [History] Venlafaxine HCl [Venlafaxine HCl ER] 75 mg PEG TID 10/12/16 [History] Quetiapine Fumarate [Seroquel] 100 mg PEG BID 01/01/18 [History] Tizanidine HCl 4 mg [Zanaflex 4 MG] 4 mg PEG QID 01/01/18 [History] Cefpodoxime Proxetil 200 mg [Vantin 200 mg] 1 tab PEG BID 03/15/18 [History] Lansoprazole 1 cap PEG BID 03/15/18 [History] Metronidazole 1 tab PEG Q8H 03/15/18 [History] Hx Tetanus, Diphtheria Vaccination/Date Given: Yes Hx Influenza Vaccination/Date Given: Yes Hx Pneumococcal Vaccination/Date Given: Yes - Review of Systems Constitutional: No Fever, No Chills Eyes: No Symptoms Ears, Nose, & Throat: No Symptoms Respiratory: No Cough, No Dyspnea Cardiac: No Chest Pain, No Edema, No Syncope Abdominal/Gastrointestinal: No Abdominal Pain, No Nausea, No Vomiting, No Diarrhea Genitourinary Symptoms: No Dysuria Musculoskeletal: No Back Pain, No Neck Pain Skin: Cellulitis Neurological: No Dizziness, No Focal Weakness, No Sensory Changes Psychological: No Symptoms Endocrine: No Symptoms Hematologic/Lymphatic: No Symptoms Immunological/Allergic: No Symptoms All Other Systems: Reviewed and Negative - Past Medical History Pertinent Past Medical History: Yes Neurological History: No Pertinent History ENT History: Cataracts Cardiac History: No Pertinent History Respiratory History: Emphysema Endocrine Medical History: No Pertinent History Musculoskeletal History: Other GI Medical History: Esophageal Disorder, GERD, Hemorrhoids, Hernia History: No Pertinent History Psycho-Social History: Anxiety, Depression Male Reproductive Disorders: No Pertinent History Other Medical History: 2000-Diagnosed with Marfan syndrome and Stacey-Danlos syndrome - Past Surgical History Past Surgical History: Yes Neuro Surgical History: No Pertinent History Cardiac: No Pertinent History Respiratory: Lobectomy Gastrointestinal: Hernia Repair, Other Genitourinary: No Pertinent History Musculoskeletal: Orthopedic Surgery Male Surgical History: No Pertinent History Other Surgical History: left knee "polyp or blockage removed,not cancer 2015", aug 2017 had esoph/hiatel hernia/stomach surgery [place] [facility] ,also at this time left clavicle bone removed and place at stomach to wrap remainder of stomach around it. peg tube has been replaced x2. feeding tube - Social History Smoking Status: Former smoker Exposure to second hand smoke: No Drug Use: none Patient Lives Alone: No - Nursing Vital Signs Nursing Vital Signs: Initial Vital Signs Temperature 98.8 F 03/15/18 19:28 Pulse Rate 89 03/15/18 19:28 Blood Pressure 125/79 03/15/18 19:28 O2 Sat by Pulse Oximetry 100 03/15/18 19:28 Pain Scale Pain Intensity 4 - Physical Exam General Appearance: no apparent distress, alert Eye Exam: PERRL/EOMI, eyes nml inspection Ears, Nose, Throat Exam: normal ENT inspection, pharynx normal, moist mucous membranes Neck Exam: normal inspection, non-tender, supple, full range of motion Respiratory Exam: normal breath sounds, lungs clear, No respiratory distress Cardiovascular Exam: regular rate/rhythm, normal heart sounds Gastrointestinal/Abdomen Exam: soft, mass, No tenderness Rectal Exam: not done Back Exam: normal inspection, normal range of motion, No CVA tenderness, No vertebral tenderness Extremity Exam: normal inspection, normal range of motion Neurologic Exam: alert, oriented x 3, cooperative, normal mood/affect, sensation nml, No motor deficits Skin Exam: normal color, warm, dry, other (4 x 8 cm red rash with central area of open wound with scant purulent dischage at left mid chest.) SpO2 Interpretation: normal SpO2: 100 Oxygen Delivery: Room Air Ordered Tests: Active Orders 24 hr Category Date Time Status IV Insertion STAT Care 03/15/18 20:01 Active BMP Stat Lab 03/15/18 20:05 Completed CBC W DIFF Stat Lab 03/15/18 20:05 Completed CULTURE,WOUND Stat Lab 03/15/18 20:00 Received Lactic Acid Stat Lab 03/15/18 20:48 Completed Manual Differential NC Stat Lab 03/15/18 20:05 Completed Lab/Rad Data: Laboratory Result Diagrams 03/15/18 20:05 03/15/18 20:05 Laboratory Results 03/15/18 03/15/18 03/15/18 Range/Units 20:48 20:05 20:05 WBC 10.8 H (4.0-10.5) K/mm3 RBC 3.99 L (4.1-5.6) M/mm3 Hgb 9.5 L (12.5-18.0) gm/dl Hct 30.1 L (42-50) % MCV 75.4 L (78-100) fl MCH 23.8 L (26-32) pg MCHC 31.6 L (32-36) g/dl RDW 15.8 H (11.5-14.0) % Plt Count 471 H (150-450) K/mm3 MPV 9.2 (6-9.5) fl Absolute Granulocytes 7.05 H (1.4-6.9) Segmented Neutrophils 56 (36.-66.) % Band Neutrophils 2 (0.0-2.0) % Lymphocytes (Manual) 26 (24-44) % Monocytes (Manual) 11 (0.0-12.0) % Eosinophils (Manual) 1 (0.00-3.0) % Metamyelocytes 3 % Myelocytes 1 % Hypochromia 2+ Platelet Estimate NORMAL (NORMAL) RBC Morphology ABNORMAL Polychromasia 1+ Microcytosis 1+ Sodium 137 (137-145) mmol/L Potassium 4.9 (3.5-5.1) mmol/L Chloride 104 (98-107) mmol/L Carbon Dioxide 26 (22-30) mmol/L Anion Gap 12.2 (5-15) MEQ/L BUN 25 H (9-20) mg/dL Creatinine 0.60 L (0.66-1.25) mg/dL Estimated GFR > 60.0 ML/MIN Glucose 68 L (74-106) mg/dL Lactic Acid 1.1 (0.4-2.0) Calcium 9.4 (8.4-10.2) mg/dL - Progress Progress: unchanged Progress Note: 03/15/18 22:[address] [facility] in [place] and spoke with of thoracic surgery. He recommends loading the patient go home and calling back to the GI doctor Edenilson the morning. I discussed this with the patient and he will call the doctor who prescribed antibiotic in the morning. - Departure Time of Disposition: 22:23 Departure Disposition: Home Clinical Impression: Delayed wound healing Condition: Stable Critical Care Time: No Referrals: ANABELLE BEAR [Primary Care Provider] - Additional Instructions: You have delayed healing of an abscess on your chest. Please call the prescribing doctor for possible further antibiotic prescriptions in the morning.
[2018-03-15 20:25] LABS: Granulocyte Absolute (ANC) 7.05 (1.4-6.9); Hematocrit 30.1 % (42-50); Hemoglobin 9.5 gm/dl (12.5-18.0); Mean Cell Volume 75.4 fl (78-100); Mean Corpuscular Hemoglobin 23.8 pg (26-32); Mean Corpuscular Hgb Concent. 31.6 g/dl (32-36); Mean Platelet Volume 9.2 fl (6-9.5); Platelet Count 471 K/mm3 (150-450); Red Blood Count 3.99 M/mm3 (4.1-5.6); Red Cell Distribution Width 15.8 % (11.5-14.0); White Blood Count 10.8 K/mm3 (4.0-10.5)
[2018-03-15 20:45] LABS: ANION GAP 12.2 MEQ/L (5-15); BLOOD UREA NITROGEN 25 mg/dL (9-20); CHLORIDE 104 mmol/L (98-107); Calcium 9.4 mg/dL (8.4-10.2); Carbon Dioxide 26 mmol/L (22-30); Glucose 68 mg/dL (74-106); Potassium 4.9 mmol/L (3.5-5.1); SODIUM 137 mmol/L (137-145)
[2018-03-15 21:04] LABS: BAND 2 % (0.0-2.0); Eosinophil 1 % (0.00-3.0); Lymphocytes 26 % (24-44); Metamyelocyte 3 %; Monocyte 11 % (0.0-12.0); Myelocyte 1 %; Neutrophils 56 % (36.-66.); Platelet Estimate NORMAL (NORMAL); Total Cells Counted 100
[2018-03-15 21:06] LABS: Hypochromia 2+; Polychromasia 1+
[2018-03-15 21:07] LABS: Microcytosis 1+
[2018-03-15] MEDS ORDERED: BACIGUENT PACKET TP ONE (22:29)
[2018-03-15] MEDS ORDERED: BACIGUENT PACKET ONE (22:30)
[2018-03-15 22:37] VITALS: BP 123/80; PULSE 76; O2SAT 98
== END 2018-03-15 22:53 | disposition home or self-care (01) ==
LOC: ED 19:23
DX: L02.213 Cutaneous abscess of chest wall (principal); Z79.891 Long term (current) use of opiate analgesic; Z79.899 Other long term (current) drug therapy; Q87.40 Marfan syndrome, unspecified; Q79.6 Ehlers-Danlos syndromes
CPT/HCPCS: 36000; 36415; 80048; 83605; 85025; 87070; 99284; A9270-GY

== ENCOUNTER 2018-11-19 22:10 | Observation (INO) | payer OTHER ==
[2018-11-19] MEDS ORDERED: Sodium Chloride 0.9% 1000 ML 1,000 ML IV STA (22:19)
[2018-11-19] MEDS ORDERED: DUONEB 0.5-3 MG/3 ml Neb IH ONE ×2 (22:19→22:39)
[2018-11-19] MEDS ORDERED: Sodium Chloride 0.9% 1000 ML 1,000 ML ONE (22:25)
--- NOTE | 2018-11-19 22:59 | ERPHSYRPT ---
- History of Present Illness Time Seen by Provider: 11/19/18 22:53 Source: patient Exam Limitations: no limitations Patient Subjective Stated Complaint: pt is alert and oriented. pt is ambulatory with a steady gait. pt comes in via family car. pt has c/o sob, cp, becoming clammy. pt denies dizziness, lightheadedness. pt states he's had some nausea and vomited x1. pt radial pulses are equal and strong. heart sounds strong. pt states he's had a decrease in appetite. pt states hes been having chills. Triage Nursing Assessment: see above Physician History: 52-year-old white male with history cataracts, emphysema, esophageal disorder, GERD, anxiety, depression, or thin syndrome, Ehler Danlos syndrome Patient arrives with complaint of shortness of breath for several days he states he's been having nausea and vomiting Patient arrives with complaint of shortness of breath Past medical history includes cataracts, emphysema, esophageal disorder, GERD, hemorrhoids, hernia, anxiety, depression, Marfan syndrome, Ehler Danlos syndrome Past surgical history includes lobectomy, hernia repair, orthopedic surgery, left knee polyp removed, esophageal cancer, hiatal hernia Patient apparently had the surgery on his esophagus secondary to hiatal hernia, he's had a PEG tube removed , feeding tube Patient denies tobacco alcohol or illicit drug usethe ultrasound Timing/Duration: day(s) (2-3 days) Activities at Onset: none Severity of Dyspnea-Max: moderate Severity of Dyspnea-Current: moderate Possible Cause: occasional episodes Modifying Factors: Improves With: activity Associated Symptoms: constant, cough, wheezing, No intermittent, No anxiety, No chest pain/discomfort, No edema, No fever, No insomnia, No loss of appetite, No lightheadedness, No weakness, No ankle swelling, No hemoptysis, No calf pain, No dizziness, No heaviness, No heart racing, No lightheadedness, No leg swelling , No muscle spasms feet, No muscle spasms hands, No painful breathing, No productive cough, No sweating, No tightness, No tingling face International travel in last 2 weeks: No Allergies/Adverse Reactions: Penicillins Allergy (Unknown, Verified 03/15/18 19:38) acetaminophen [From Percocet] Adverse Reaction (Verified 03/15/18 19:38) Itching codeine Adverse Reaction (Verified 03/15/18 19:38) Itching morphine Adverse Reaction (Verified 03/15/18 19:38) Itching naproxen Adverse Reaction (Verified 03/15/18 19:38) Rash oxycodone [From Percocet] Adverse Reaction (Verified 03/15/18 19:38) Itching Home Medications: Aspirin 81 mg PEG DAILY 10/12/16 [History] Fluticasone/Salmeterol [Advair 250-50 Diskus] 1 puff IH BID 10/12/16 [History] Hydrocodone/Acetaminophen [Hydrocodon-Acetaminophn 10-325] 1 ea PEG UD 10/12/16 [History] Ipratropium/Albuterol Sulfate [Combivent Respimat Common Canister] 1 puff IH QID 10/12/16 [History] Mirtazapine 45 mg PEG HS 10/12/16 [History] Nitroglycerin 0.4 mg (Ed) [Nitrostat 0.4 MG (ED)] 0.4 mg PO Q5MIN PRN MR X 3 PRN 10/12/16 [History] Ondansetron HCl [Zofran] 4 mg PO Q4H PRN 10/12/16 [History] Venlafaxine HCl [Venlafaxine HCl ER] 75 mg PEG TID 10/12/16 [History] Quetiapine Fumarate [Seroquel] 100 mg PEG BID 01/01/18 [History] Tizanidine HCl 4 mg [Zanaflex 4 MG] 4 mg PEG QID 01/01/18 [History] Cefpodoxime Proxetil 200 mg [Vantin 200 mg] 1 tab PEG BID 03/15/18 [History] Lansoprazole 1 cap PEG BID 03/15/18 [History] Metronidazole 1 tab PEG Q8H 03/15/18 [History] Hx Tetanus, Diphtheria Vaccination/Date Given: Yes Hx Influenza Vaccination/Date Given: Yes Hx Pneumococcal Vaccination/Date Given: Yes Immunizations Up to Date: Yes - Review of Systems Constitutional: Fever Eyes: No Symptoms Ears, Nose, & Throat: No Symptoms Respiratory: Cough, Dyspnea, Wheezing Cardiac: Chest Pain, No Edema, No Syncope Abdominal/Gastrointestinal: No Abdominal Pain, No Nausea, No Vomiting, No Diarrhea Genitourinary Symptoms: No Dysuria Musculoskeletal: No Back Pain, No Neck Pain Skin: No Rash Neurological: No Dizziness, No Focal Weakness, No Sensory Changes Psychological: No Symptoms Endocrine: No Symptoms All Other Systems: Reviewed and Negative - Past Medical History Pertinent Past Medical History: Yes Neurological History: No Pertinent History ENT History: Cataracts Cardiac History: No Pertinent History Respiratory History: Emphysema Endocrine Medical History: No Pertinent History Musculoskeletal History: Other GI Medical History: Esophageal Disorder, GERD, Hemorrhoids, Hernia History: No Pertinent History Psycho-Social History: Anxiety, Depression Male Reproductive Disorders: No Pertinent History Other Medical History: 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 peg tube has been replaced x2. feeding tube - Social History Smoking Status: Former smoker Exposure to second hand smoke: No Drug Use: none Patient Lives Alone: No - Nursing Vital Signs Nursing Vital Signs: Initial Vital Signs Temperature 98.3 F 11/19/18 22:11 Pulse Rate 122 H 11/19/18 22:11 Respiratory Rate 22 11/19/18 22:11 Blood Pressure 140/82 11/19/18 22:11 O2 Sat by Pulse Oximetry 91 L 11/19/18 22:11 Pain Scale Pain Intensity 4 - Physical Exam General Appearance: moderate distress, alert Eye Exam: PERRL/EOMI Ears, Nose, Throat Exam: hearing grossly normal, normal ENT inspection, normal pharynx, No abnormal TM (R), No abnormal TM (L) Neck Exam: normal inspection, supple Respiratory Exam: diminished breath sounds Cardiovascular/Chest Exam: normal heart sounds, regular rate/rhythm Abdominal/Gastrointestinal Exam: soft, No tenderness, No distention, No mass Extremity Exam: non-tender, normal range of motion, normal inspection, no calf tenderness, no pedal edema Peripheral Pulses Exam: dorsalis-pedis (R): 2+, dorsalis-pedis (L): 2+ Neurologic Exam: alert, oriented x 3, 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, 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, sensation nml, No motor deficits Skin Exam: normal color, warm, No dry SpO2 Interpretation: normal (97%) SpO2: 97 - Course Nursing assessment & vital signs reviewed: Yes EKG Interpreted by Me: RATE (120 bpm), Sinus Tach, Other (EKG sinus tachycardia , 120 bpm, indeterminate axis, no acute ST or T wave changes noted) - Radiology Exams Chest X-ray Interpretation: Interpreted by me (right upper lobe infiltrate) - CT Exams Chest CT Interpretation: Tele-radiologist Report (CT chest: Impression: Multiple bulla seen throughout the lungsnation of parenchymal scarring and possible pneumonic infiltrate along with some interspersed fluid perhaps reflecting underlying infection, esophagitis seen in the anterior mediastinal region with a stent appears postsurgical in nature. 4. 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 STAT Care 11/19/18 22:19 Active EKG-ER Only STAT Care 11/19/18 22:19 Active IV Insertion STAT Care 11/19/18 22:19 Active Pulse Oximetry (ED) STAT Care 11/19/18 22:19 Active CHEST 1 VIEW (PORTABLE) Stat Exams 11/19/18 22:19 Taken CHEST WITH CONTRAST [CT] Stat Exams 11/20/18 00:49 Taken ARTERIAL BLOOD GASES Stat Lab 11/19/18 23:42 Completed CBC W DIFF Stat Lab 11/19/18 23:08 Completed CMP Stat Lab 11/19/18 23:08 Completed D-DIMER QUANTITATION Stat Lab 11/19/18 23:08 Completed Lactic Acid Stat Lab 11/19/18 23:42 Completed Manual Differential NC Stat Lab 11/19/18 23:08 Completed NT PRO BNP Stat Lab 11/19/18 23:08 Completed PROTIME WITH INR Stat Lab 11/19/18 23:08 Completed PTT Stat Lab 11/19/18 23:08 Completed TROPONIN Q3H Lab 11/19/18 23:08 Completed TROPONIN Q3H Lab 11/20/18 02:12 Received TROPONIN Q3H Lab 11/20/18 04:30 Ordered TROPONIN Q3H Lab 11/20/18 07:30 Ordered TROPONIN Q3H Lab 11/20/18 10:30 Ordered Respiratory Nebulizer STAT RT 11/19/18 22:21 Completed Respiratory Therapy Assessment DAILY RT 11/19/18 22:44 Completed Medication Summary Generic Name Dose Route Start Last Admin Trade Name Stanton PRN Reason Stop Dose Admin Ceftriaxone Sodium/Dextrose 1 g in 50 mls @ 100 mls/hr 11/20/18 02:31 Rocephin 1 Gm-D5w 50 Ml Bag IV 11/20/18 03:00 STAT STA Discontinued Medications Generic Name Dose Route Start Last Admin Trade Name Stanton PRN Reason Stop Dose Admin Albuterol/Ipratropium 3 ml 11/19/18 22:19 11/19/18 22:40 Duoneb 0.5-3 Mg/3 Ml Neb IH 11/19/18 22:20 3 ml STAT ONE Administration Albuterol/Ipratropium Confirm 11/19/18 22:39 Duoneb 0.5-3 Mg/3 Ml Neb Administered 11/19/18 22:40 Dose 3 ml IH .STK-MED ONE Sodium Chloride 1,000 mls @ 999 mls/hr 11/19/18 22:19 11/19/18 23:28 Sodium Chloride 0.9% 1000 Ml IV 11/19/18 23:19 Infused .Q1H1M STA Infusion Sodium Chloride Confirm 11/19/18 22:25 Sodium Chloride 0.9% 1000 Ml Administered 11/19/18 22:26 Dose 1,000 mls @ ud .ROUTE .STK-MED ONE Lab/Rad Data: Laboratory Result Diagrams 11/19/18 23:08 11/19/18 23:08 Laboratory Results 11/19/18 11/19/18 11/19/18 Range/Units 23:42 23:08 23:08 WBC (4.0-10.5) K/mm3 RBC (4.1-5.6) M/mm3 Hgb (12.5-18.0) gm/dl Hct (42-50) % MCV (78-100) fl MCH (26-32) pg MCHC (32-36) g/dl RDW (11.5-14.0) % Plt Count (150-450) K/mm3 MPV (6-9.5) fl Absolute Granulocytes (1.4-6.9) Segmented Neutrophils (36.-66.) % Band Neutrophils (0.0-2.0) % Lymphocytes (Manual) (24-44) % Monocytes (Manual) (0.0-12.0) % Basophils (Manual) (0.0-1.0) % Platelet Estimate (NORMAL) RBC Morphology PT (8.83-12.87) SECONDS INR (0.8-3.0) APTT (24.1-36.1) SECONDS D-Dimer (215-500) ng/mL Puncture Site RIGHT RADIAL pCO2 31 L (35-45) mmHg pO2 70 L (75-100) mmHg Base Excess -2.2 L (-2.0-2.0) O2 Saturation 93.2 L (94-100) g/dF ABG pH 7.44 (7.35-7.45) ABG HCO3 21.1 L (22-28) ABG O2 Sat (Measured) 94.4 L (95-100) % Wilian Test YES A-a Gradient 41 a/A Ratio 0.63 Hemoglobin 13.0 Carboxyhemoglobin 0.7 (0.0-6.9) % THgb Methemoglobin 0.5 L (1.4-1.5) % Temperature 37.0 C POC O2 Flow Rate 21 % Sodium (137-145) mmol/L Potassium 3.9 (3.5-5.1) mmol/L Chloride (98-107) mmol/L Carbon Dioxide (22-30) mmol/L Anion Gap (5-15) MEQ/L BUN (9-20) mg/dL Creatinine (0.66-1.25) mg/dL Estimated GFR ML/MIN Glucose (74-106) mg/dL Lactic Acid 0.8 (0.4-2.0) Calcium (8.4-10.2) mg/dL Total Bilirubin (0.2-1.3) mg/dL AST (17-59) U/L ALT (0-50) U/L Alkaline Phosphatase (38-126) U/L Troponin I < 0.012 (0.000-0.034) ng/mL NT-Pro-B Natriuret Pep (0-900) pg/mL Serum Total Protein (6.3-8.2) g/dL Albumin (3.5-5.0) g/dL Influenza Type A Ag NEGATIVE (NEGATIVE) Influenza Type B Ag NEGATIVE (NEGATIVE) RSV (PCR) NEGATIVE (Negative) 11/19/18 11/19/18 11/19/18 Range/Units 23:08 23:08 23:08 WBC 13.8 H (4.0-10.5) K/mm3 RBC 4.98 (4.1-5.6) M/mm3 Hgb 14.2 (12.5-18.0) gm/dl Hct 43.3 (42-50) % MCV 86.9 (78-100) fl MCH 28.5 (26-32) pg MCHC 32.8 (32-36) g/dl RDW 15.0 H (11.5-14.0) % Plt Count 620 H (150-450) K/mm3 MPV 9.8 H (6-9.5) fl Absolute Granulocytes 11.18 H (1.4-6.9) Segmented Neutrophils 79 H (36.-66.) % Band Neutrophils 1 (0.0-2.0) % Lymphocytes (Manual) 6 L (24-44) % Monocytes (Manual) 13 H (0.0-12.0) % Basophils (Manual) 1 (0.0-1.0) % Platelet Estimate NORMAL (NORMAL) RBC Morphology NORMAL PT 14.0 H (8.83-12.87) SECONDS INR 1.20 (0.8-3.0) APTT 37.3 H (24.1-36.1) SECONDS D-Dimer 2308 H* (215-500) ng/mL Puncture Site pCO2 (35-45) mmHg pO2 (75-100) mmHg Base Excess (-2.0-2.0) O2 Saturation (94-100) g/dF ABG pH (7.35-7.45) ABG HCO3 (22-28) ABG O2 Sat (Measured) (95-100) % Wilian Test A-a Gradient a/A Ratio Hemoglobin Carboxyhemoglobin (0.0-6.9) % THgb Methemoglobin (1.4-1.5) % Temperature C POC O2 Flow Rate % Sodium 139 (137-145) mmol/L Potassium 4.0 (3.5-5.1) mmol/L Chloride 103 (98-107) mmol/L Carbon Dioxide 21 L (22-30) mmol/L Anion Gap 18.6 H (5-15) MEQ/L BUN 16 (9-20) mg/dL Creatinine 1.02 (0.66-1.25) mg/dL Estimated GFR > 60.0 ML/MIN Glucose 116 H (74-106) mg/dL Lactic Acid (0.4-2.0) Calcium 9.8 (8.4-10.2) mg/dL Total Bilirubin 0.60 (0.2-1.3) mg/dL AST 15 L (17-59) U/L ALT 15 (0-50) U/L Alkaline Phosphatase 191 H (38-126) U/L Troponin I (0.000-0.034) ng/mL NT-Pro-B Natriuret Pep 65.6 (0-900) pg/mL Serum Total Protein 8.6 H (6.3-8.2) g/dL Albumin 4.2 (3.5-5.0) g/dL Influenza Type A Ag (NEGATIVE) Influenza Type B Ag (NEGATIVE) RSV (PCR) (Negative) - Progress Progress: improved Air Movement: fair Progress Note: 11/20/18 02:40 Patient is feeling better with DuoNeb treatment. Chest x-ray shows right upper lobe pneumonia. CT chest remarkable for multiple bulla throughout the lungs, right upper lobe air space opacities likely representing a combination of parenchymal scarring and possible pneumonic infiltrates along with some interspersed fluid perhaps reflecting underlying infection Patient's CBC white blood cell 13.8 hemoglobin 14.2 hematocrit 43.3 platelets 620 EKG sinus tachycardia [address] or T wave changes Patient's chemistry essentially normal lactate 0.8 troponin less than 0.012 Patient is given aspirin 324 mg orally of discussed case with Dr. Lucia will place patient on observation telemetry diagnosis pneumonia. - Departure Departure Disposition: Observation Clinical Impression: Shortness of breath Pneumonia Qualifiers: Pneumonia type: due to unspecified organism Laterality: right Lung location: upper lobe of lung Qualified Code(s): J18.1 - Lobar pneumonia, unspecified organism COPD (chronic obstructive pulmonary disease) Qualifiers: COPD type: unspecified COPD Qualified Code(s): J44.9 - Chronic obstructive pulmonary disease, unspecified Condition: Fair Critical Care Time: No Referrals: ANABELLE BEAR [Primary Care Provider] - Instructions: Chronic Obstructive Pulmonary Disease
[2018-11-19 23:19] LABS: Granulocyte Absolute (ANC) 11.18 (1.4-6.9); Hematocrit 43.3 % (42-50); Hemoglobin 14.2 gm/dl (12.5-18.0); INR 1.2 (0.8-3.0); Mean Cell Volume 86.9 fl (78-100); Mean Corpuscular Hemoglobin 28.5 pg (26-32); Mean Corpuscular Hgb Concent. 32.8 g/dl (32-36); Mean Platelet Volume 9.8 fl (6-9.5); Platelet Count 620 K/mm3 (150-450); Red Blood Count 4.98 M/mm3 (4.1-5.6); White Blood Count 13.8 K/mm3 (4.0-10.5)
[2018-11-19 23:22] LABS: PTT 37.3 SECONDS (24.1-36.1)
[2018-11-19 23:33] LABS: ALBUMIN 4.2 g/dL (3.5-5.0); ALKALINE PHOSPHATASE 191 U/L (38-126); ANION GAP 18.6 MEQ/L (5-15); BLOOD UREA NITROGEN 16 mg/dL (9-20); CHLORIDE 103 mmol/L (98-107); Calcium 9.8 mg/dL (8.4-10.2); Carbon Dioxide 21 mmol/L (22-30); Creatinine 1 1.02 mg/dL (0.66-1.25); Glucose 116 mg/dL (74-106); NT PRO BNP 65.6 pg/mL (0-900); SGOT/AST 15 U/L (17-59); SGPT/ALT 15 U/L (0-50); SODIUM 139 mmol/L (137-145); Total Protein 8.6 g/dL (6.3-8.2)
[2018-11-19 23:47] LABS: A-aADO2 41; ABG POTASSIUM 3.9 (3.5-5.1); ABG SITE RIGHT RADIAL; ALLEN TEST OK? YES; ARTERIAL BLD GAS O2 SATURATION 94.4 % (95-100); ARTERIAL BLOOD GAS BASE EXCESS -2.2 (-2.0-2.0); ARTERIAL BLOOD GAS FIO2 21 %; ARTERIAL BLOOD GAS PCO2 31 mmHg (35-45); ARTERIAL BLOOD GAS PO2 70 mmHg (75-100); ARTERIAL BLOOD GAS pH 7.44 (7.35-7.45); CARBOXYHEMOGLOBIN 0.7 % THgb (0.0-6.9); HCO3- 21.1 (22-28); HGB O2 SAT 93.2 g/dF (94-100); Lactic Acid 0.8 (0.4-2.0); Methhemoglobin 0.5 % (1.4-1.5); paO2 pAO1 0.63
[2018-11-20 01:01] LABS: BAND 1 % (0.0-2.0); Basophil 1 % (0.0-1.0); Lymphocytes 6 % (24-44); Monocyte 13 % (0.0-12.0); Neutrophils 79 % (36.-66.); Platelet Estimate NORMAL (NORMAL); Total Cells Counted 100
[2018-11-20 01:42] LABS: INFLUENZA A NEGATIVE (NEGATIVE); INFLUENZA B NEGATIVE (NEGATIVE); RESPIRATORY SYNCTIAL VIRUS NEGATIVE (Negative)
[2018-11-20] MEDS ORDERED: ROCEPHIN 1 Gm-D5w 50 ml Bag** 1 G/50 ML IVPB IV STA (02:31)
[2018-11-20] MEDS ORDERED: BABY ASPIRIN 81 MG CHEW PO ONE (02:39)
[2018-11-20] MEDS ORDERED: ROCEPHIN 1 Gm-D5w 50 ml Bag** 1 G/50 ML IVPB IV ONE (02:50)
[2018-11-20] MEDS ORDERED: BABY ASPIRIN 81 MG CHEW ONE (02:50)
[2018-11-20] MEDS: Sodium Chloride 0.9% 1000 ML 1,000 ML IV SCH ×2 (03:57→16:22)
[2018-11-20] MEDS: Zithromax 500 MG/ 250 ML NaCl Premix 500 MG/250 ML IVPB IV SCH ×2 (03:58)
[2018-11-20] MEDS: Norco 10/325 MG Tablet PO PRN ×3 (04:27→21:35)
[2018-11-20 05:03] LABS: Granulocyte Absolute (ANC) 10.34 (1.4-6.9); Hematocrit 38.4 % (42-50); Hemoglobin 12.5 gm/dl (12.5-18.0); Mean Cell Volume 87.9 fl (78-100); Mean Corpuscular Hemoglobin 28.6 pg (26-32); Mean Corpuscular Hgb Concent. 32.6 g/dl (32-36); Mean Platelet Volume 9.4 fl (6-9.5); Platelet Count 571 K/mm3 (150-450); Red Blood Count 4.37 M/mm3 (4.1-5.6); Red Cell Distribution Width 14.9 % (11.5-14.0); White Blood Count 13.2 K/mm3 (4.0-10.5)
[2018-11-20 05:56] LABS: ALBUMIN 3.7 g/dL (3.5-5.0); ALKALINE PHOSPHATASE 155 U/L (38-126); ANION GAP 15.1 MEQ/L (5-15); BLOOD UREA NITROGEN 14 mg/dL (9-20); CHLORIDE 103 mmol/L (98-107); Calcium 9.2 mg/dL (8.4-10.2); Carbon Dioxide 23 mmol/L (22-30); Creatinine 1 0.82 mg/dL (0.66-1.25); Glucose 114 mg/dL (74-106); SGOT/AST 12 U/L (17-59); SGPT/ALT 12 U/L (0-50); SODIUM 138 mmol/L (137-145); Total Protein 7.7 g/dL (6.3-8.2)
[2018-11-20 06:51] LABS: ANISOCYTOSIS 1+; Eosinophil 1 % (0.00-3.0); Lymphocytes 8 % (24-44); Monocyte 7 % (0.0-12.0); Neutrophils 84 % (36.-66.); Platelet Estimate INCREASED (NORMAL); Total Cells Counted 100
[2018-11-20] MEDS ORDERED: PATIENT OWN MEDICATION IH SCH ×2 (07:00)
--- NOTE | 2018-11-20 08:18 | PCM.HP ---
History of Present Illness - Chief Complaint Chief Complaint: Exacerbation of COPD; Pneumonia; SOB History of Present Illness: is a 58 year old male who presented with a complaint of a several day history of shortness of breath and cough, he has felt weak and progressively more short of breath. had some GI symptoms as well but have resolved, he is feeling better since admission. - Review of Systems Constitutional: Weakness Eyes: No Symptoms Ears, Nose, & Throat: No Symptoms Respiratory: Cough Cardiac: No Chest Pain, No Edema, No Syncope Skin: No Rash Neurological: No Dizziness, No Focal Weakness, No Sensory Changes All Other Systems: Reviewed and Negative Medications & Allergies Home Medications: Home Medication List Aspirin 81 mg PO DAILY 10/12/16 [History Confirmed 11/20/18] Hydrocodone/Acetaminophen [Hydrocodon-Acetaminophn 10-325] 1 tab PO Q6H PRN PRN 10/12/16 [History Confirmed 11/20/18] Mirtazapine 45 mg PO HS 10/12/16 [History Confirmed 11/20/18] Nitroglycerin 0.4 mg (Ed) [Nitrostat 0.4 MG (ED)] 0.4 mg PO Q5MIN PRN MR X 3 PRN 10/12/16 [History Confirmed 11/19/18] Quetiapine Fumarate [Seroquel] 100 mg PO BID 01/01/18 [History Confirmed ] Tizanidine HCl 4 mg [Zanaflex 4 MG] 4 mg PO QID 01/01/18 [History Confirmed 11/20/18] Budesonide/Formoterol Fumarate [Symbicort 80-4.5 Mcg Inhaler] 2 puff IH BID 03/03 [History Confirmed 11/20/18] Ipratropium/Albuterol Sulfate [Combivent Inhaler] 1 puff IH QID 11/20/18 [ History Confirmed 11/20/18] Nutritional Supplement [Osmolite 1.5 Winston] 237 ml PEG QID 11/20/18 [History Confirmed 11/20/18] Omeprazole 20 mg PO DAILY 11/20/18 [History Confirmed 11/20/18] Suvorexant [Belsomra] 20 mg PO HS 11/20/18 [History Confirmed 11/20/18] Venlafaxine HCl [Venlafaxine HCl ER] 225 mg PO DAILY 11/20/18 [History Confirmed 11/20/18] Allergies/Adverse Reactions: Allergies Allergy/AdvReac Type Severity Reaction Status Date / Time Penicillins Allergy Unknown Verified 11/20/18 03:24 acetaminophen [From Percocet] AdvReac Itching Verified 11/20/18 03:24 codeine AdvReac Itching Verified 11/20/18 03:24 morphine AdvReac Itching Verified 11/20/18 03:24 naproxen AdvReac Rash Verified 11/20/18 03:24 oxycodone [From Percocet] AdvReac Itching Verified 11/20/18 03:24 - Past Medical History Past Medical History: Yes Neurological History: No Pertinent History ENT History: Cataracts Cardiac History: No Pertinent History Respiratory History: Emphysema Endocrine Medical History: No Pertinent History Musculoskelatal History: Other GI Medical History: Esophageal Disorder, GERD, Hemorrhoids, Hernia History: No Pertinent History Pyscho-Social History: Anxiety, Depression Male Reproductive Disorders: No Pertinent History Comment: 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 ,also at this time left clavicle bone removed and place at stomach to wrap remainder of stomach around it. peg tube has been replaced x2. feeding tube - Social History Smoking Status: Former smoker Exposure to second hand smoke: No Alcohol: None Drug Use: none - Physical Exam Vital Signs: Vital Signs - 24 hr Temp Pulse Resp BP Pulse Ox 11/20/18 07:25 97.9 F 84 18 110/72 95 11/20/18 04:52 96 H 20 95 11/20/18 04:28 98.2 F 98 H 20 124/81 95 11/20/18 03:21 95 11/20/18 02:47 98.0 F 99 H 18 117/84 94 L 11/20/18 02:43 97 11/20/18 01:40 96 H 18 117/84 94 L 11/20/18 00:48 100 H 20 118/85 94 L 11/19/18 23:46 101 H 16 93 L 11/19/18 23:09 103 H 16 96 11/19/18 22:44 105 H 97 11/19/18 22:40 106 H 26 H 136/83 99 11/19/18 22:28 91 L 11/19/18 22:11 98.3 F 122 H 20 140/82 92 L Oxygen-Last 24 hours O2 Percentage 2 Liters = 28% O2 Percentage 2 Liters = 28% O2 Percentage 2 Liters = 28% O2 Percentage 2 Liters = 28% O2 Percentage 2 Liters = 28% O2 Percentage 2 Liters = 28% General Appearance: no apparent distress, alert Eye Exam: PERRL/EOMI, eyes nml inspection Ears, Nose, Throat Exam: normal ENT inspection, TMs normal, pharynx normal, moist mucous membranes Respiratory Exam: rhonchi (right upper lung richardson) Cardiovascular Exam: regular rate/rhythm, normal heart sounds, normal peripheral pulses, other (large healed scar left upper chest wall) Extremity Exam: normal inspection, normal range of motion, pelvis stable Skin Exam: normal color, warm, dry, No rash Results - Labs Lab/Micro Results: Lab Results-Last 24 Hours 11/19/18 11/19/18 11/19/18 Range/Units 23:08 23:08 23:08 WBC 13.8 H (4.0-10.5) K/mm3 RBC 4.98 (4.1-5.6) M/mm3 Hgb 14.2 (12.5-18.0) gm/dl Hct 43.3 (42-50) % MCV 86.9 (78-100) fl MCH 28.5 (26-32) pg MCHC 32.8 (32-36) g/dl RDW 15.0 H (11.5-14.0) % Plt Count 620 H (150-450) K/mm3 MPV 9.8 H (6-9.5) fl Absolute Granulocytes 11.18 H (1.4-6.9) Segmented Neutrophils 79 H (36.-66.) % Band Neutrophils 1 (0.0-2.0) % Lymphocytes (Manual) 6 L (24-44) % Monocytes (Manual) 13 H (0.0-12.0) % Eosinophils (Manual) (0.00-3.0) % Basophils (Manual) 1 (0.0-1.0) % Platelet Estimate NORMAL (NORMAL) RBC Morphology NORMAL Anisocytosis PT 14.0 H (8.83-12.87) SECONDS INR 1.20 (0.8-3.0) APTT 37.3 H (24.1-36.1) SECONDS D-Dimer 2308 H* (215-500) ng/mL Puncture Site pCO2 (35-45) mmHg pO2 (75-100) mmHg Base Excess (-2.0-2.0) O2 Saturation (94-100) g/dF ABG pH (7.35-7.45) ABG HCO3 (22-28) ABG O2 Sat (Measured) (95-100) % Iwlian Test A-a Gradient a/A Ratio Hemoglobin Carboxyhemoglobin (0.0-6.9) % THgb Methemoglobin (1.4-1.5) % Temperature C POC O2 Flow Rate % Sodium 139 (137-145) mmol/L Potassium 4.0 (3.5-5.1) mmol/L Chloride 103 (98-107) mmol/L Carbon Dioxide 21 L (22-30) mmol/L Anion Gap 18.6 H (5-15) MEQ/L BUN 16 (9-20) mg/dL Creatinine 1.02 (0.66-1.25) mg/dL Estimated GFR > 60.0 ML/MIN Glucose 116 H (74-106) mg/dL Lactic Acid (0.4-2.0) Calcium 9.8 (8.4-10.2) mg/dL Total Bilirubin 0.60 (0.2-1.3) mg/dL AST 15 L (17-59) U/L ALT 15 (0-50) U/L Alkaline Phosphatase 191 H (38-126) U/L Troponin I (0.000-0.034) ng/mL NT-Pro-B Natriuret Pep 65.6 (0-900) pg/mL Serum Total Protein 8.6 H (6.3-8.2) g/dL Albumin 4.2 (3.5-5.0) g/dL Influenza Type A Ag (NEGATIVE) Influenza Type B Ag (NEGATIVE) RSV (PCR) (Negative) 11/19/18 11/19/18 11/19/18 Range/Units 23:08 23:08 23:42 WBC (4.0-10.5) K/mm3 RBC (4.1-5.6) M/mm3 Hgb (12.5-18.0) gm/dl Hct (42-50) % MCV (78-100) fl MCH (26-32) pg MCHC (32-36) g/dl RDW (11.5-14.0) % Plt Count (150-450) K/mm3 MPV (6-9.5) fl Absolute Granulocytes (1.4-6.9) Segmented Neutrophils (36.-66.) % Band Neutrophils (0.0-2.0) % Lymphocytes (Manual) (24-44) % Monocytes (Manual) (0.0-12.0) % Eosinophils (Manual) (0.00-3.0) % Basophils (Manual) (0.0-1.0) % Platelet Estimate (NORMAL) RBC Morphology Anisocytosis PT (8.83-12.87) SECONDS INR (0.8-3.0) APTT (24.1-36.1) SECONDS D-Dimer (215-500) ng/mL Puncture Site RIGHT RADIAL pCO2 31 L (35-45) mmHg pO2 70 L (75-100) mmHg Base Excess -2.2 L (-2.0-2.0) O2 Saturation 93.2 L (94-100) g/dF ABG pH 7.44 (7.35-7.45) ABG HCO3 21.1 L (22-28) ABG O2 Sat (Measured) 94.4 L (95-100) % Wilian Test YES A-a Gradient 41 a/A Ratio 0.63 Hemoglobin 13.0 Carboxyhemoglobin 0.7 (0.0-6.9) % THgb Methemoglobin 0.5 L (1.4-1.5) % Temperature 37.0 C POC O2 Flow Rate 21 % Sodium (137-145) mmol/L Potassium 3.9 (3.5-5.1) mmol/L Chloride (98-107) mmol/L Carbon Dioxide (22-30) mmol/L Anion Gap (5-15) MEQ/L BUN (9-20) mg/dL Creatinine (0.66-1.25) mg/dL Estimated GFR ML/MIN Glucose (74-106) mg/dL Lactic Acid 0.8 (0.4-2.0) Calcium (8.4-10.2) mg/dL Total Bilirubin (0.2-1.3) mg/dL AST (17-59) U/L ALT (0-50) U/L Alkaline Phosphatase (38-126) U/L Troponin I < 0.012 (0.000-0.034) ng/mL NT-Pro-B Natriuret Pep (0-900) pg/mL Serum Total Protein (6.3-8.2) g/dL Albumin (3.5-5.0) g/dL Influenza Type A Ag NEGATIVE (NEGATIVE) Influenza Type B Ag NEGATIVE (NEGATIVE) RSV (PCR) NEGATIVE (Negative) 11/20/18 11/20/18 11/20/18 Range/Units 02:12 04:35 04:35 WBC 13.2 H (4.0-10.5) K/mm3 RBC 4.37 (4.1-5.6) M/mm3 Hgb 12.5 (12.5-18.0) gm/dl Hct 38.4 L (42-50) % MCV 87.9 (78-100) fl MCH 28.6 (26-32) pg MCHC 32.6 (32-36) g/dl RDW 14.9 H (11.5-14.0) % Plt Count 571 H (150-450) K/mm3 MPV 9.4 (6-9.5) fl Absolute Granulocytes 10.34 H (1.4-6.9) Segmented Neutrophils 84 H (36.-66.) % Band Neutrophils (0.0-2.0) % Lymphocytes (Manual) 8 L (24-44) % Monocytes (Manual) 7 (0.0-12.0) % Eosinophils (Manual) 1 (0.00-3.0) % Basophils (Manual) (0.0-1.0) % Platelet Estimate INCREASED (NORMAL) RBC Morphology ABNORMAL Anisocytosis 1+ PT (8.83-12.87) SECONDS INR (0.8-3.0) APTT (24.1-36.1) SECONDS D-Dimer (215-500) ng/mL Puncture Site pCO2 (35-45) mmHg pO2 (75-100) mmHg Base Excess (-2.0-2.0) O2 Saturation (94-100) g/dF ABG pH (7.35-7.45) ABG HCO3 (22-28) ABG O2 Sat (Measured) (95-100) % Wilian Test A-a Gradient a/A Ratio Hemoglobin Carboxyhemoglobin (0.0-6.9) % THgb Methemoglobin (1.4-1.5) % Temperature C POC O2 Flow Rate % Sodium (137-145) mmol/L Potassium (3.5-5.1) mmol/L Chloride (98-107) mmol/L Carbon Dioxide (22-30) mmol/L Anion Gap (5-15) MEQ/L BUN (9-20) mg/dL Creatinine (0.66-1.25) mg/dL Estimated GFR ML/MIN Glucose (74-106) mg/dL Lactic Acid (0.4-2.0) Calcium (8.4-10.2) mg/dL Total Bilirubin (0.2-1.3) mg/dL AST (17-59) U/L ALT (0-50) U/L Alkaline Phosphatase (38-126) U/L Troponin I < 0.012 < 0.012 (0.000-0.034) ng/mL NT-Pro-B Natriuret Pep (0-900) pg/mL Serum Total Protein (6.3-8.2) g/dL Albumin (3.5-5.0) g/dL Influenza Type A Ag (NEGATIVE) Influenza Type B Ag (NEGATIVE) RSV (PCR) (Negative) 11/20/18 Range/Units 04:35 WBC (4.0-10.5) K/mm3 RBC (4.1-5.6) M/mm3 Hgb (12.5-18.0) gm/dl Hct (42-50) % MCV (78-100) fl MCH (26-32) pg MCHC (32-36) g/dl RDW (11.5-14.0) % Plt Count (150-450) K/mm3 MPV (6-9.5) fl Absolute Granulocytes (1.4-6.9) Segmented Neutrophils (36.-66.) % Band Neutrophils (0.0-2.0) % Lymphocytes (Manual) (24-44) % Monocytes (Manual) (0.0-12.0) % Eosinophils (Manual) (0.00-3.0) % Basophils (Manual) (0.0-1.0) % Platelet Estimate (NORMAL) RBC Morphology Anisocytosis PT (8.83-12.87) SECONDS INR (0.8-3.0) APTT (24.1-36.1) SECONDS D-Dimer (215-500) ng/mL Puncture Site pCO2 (35-45) mmHg pO2 (75-100) mmHg Base Excess (-2.0-2.0) O2 Saturation (94-100) g/dF ABG pH (7.35-7.45) ABG HCO3 (22-28) ABG O2 Sat (Measured) (95-100) % Wilian Test A-a Gradient a/A Ratio Hemoglobin Carboxyhemoglobin (0.0-6.9) % THgb Methemoglobin (1.4-1.5) % Temperature C POC O2 Flow Rate % Sodium 138 (137-145) mmol/L Potassium 4.0 (3.5-5.1) mmol/L Chloride 103 (98-107) mmol/L Carbon Dioxide 23 (22-30) mmol/L Anion Gap 15.1 H (5-15) MEQ/L BUN 14 (9-20) mg/dL Creatinine 0.82 (0.66-1.25) mg/dL Estimated GFR > 60.0 ML/MIN Glucose 114 H (74-106) mg/dL Lactic Acid (0.4-2.0) Calcium 9.2 (8.4-10.2) mg/dL Total Bilirubin 0.40 (0.2-1.3) mg/dL AST 12 L (17-59) U/L ALT 12 (0-50) U/L Alkaline Phosphatase 155 H (38-126) U/L Troponin I (0.000-0.034) ng/mL NT-Pro-B Natriuret Pep (0-900) pg/mL Serum Total Protein 7.7 (6.3-8.2) g/dL Albumin 3.7 (3.5-5.0) g/dL Influenza Type A Ag (NEGATIVE) Influenza Type B Ag (NEGATIVE) RSV (PCR) (Negative) - Radiology Impressions Radiology Exams & Impressions: Radiology Procedures Category Date Time Status CHEST 1 VIEW (PORTABLE) Stat Exams 11/19/18 22:19 Taken CHEST WITH CONTRAST [CT] Stat Exams 11/20/18 00:49 Taken - Other Procedures and Tests Respiratory Therapy 11/20/18 03:21 Oxygen Nasal Cannula 2 lpm 11/20/18 07:00 Respiratory MDI BID Respiratory MDI QID Assessment/Plan (1) Pneumonia Current Visit: Yes Status: Acute Qualifiers: Pneumonia type: due to unspecified organism Laterality: right Lung location: upper lobe of lung Qualified Code(s): J18.1 - Lobar pneumonia, unspecified organism Assessment & Plan: continue rocephin and zithromax, nebs and supportive care. requiring oxygen at this time. Code(s): J18.9 - PNEUMONIA, UNSPECIFIED ORGANISM
[2018-11-20] MEDS ORDERED: Nitrostat 0.4 MG Tablet SL PRN (09:31)
--- NOTE | 2018-11-20 09:53 | XRAY ---
Indication: Short of breath. Elevated d-dimer. History COPD. Multiple contiguous axial images obtained through the chest using 80 cc of Isovue-300 contrast and PE protocol. Comparison: None. There is adequate opacification of the pulmonary arteries to include the lobar and segmental branches. No filling defect or pulmonary embolus. Heart is not enlarged. Aorta normal in course and caliber. No pathologic mediastinal/hilar lymphadenopathy. Esophageal postsurgical changes with anterior mediastinal stent. Examination of the lung parenchyma demonstrates extensive bullous emphysema with scattered fibrosis/scarring and left upper lung suture material. New right upper lobe consolidating airspace opacities. No large effusion. Bony thorax intact with mild dextroscoliosis. Limited upper abdomen demonstrates PEG tube with tip in the gastric lumen. Impression: 1. Negative pulmonary embolus. 2. Right upper lobe airspace disease. 3. Diffuse bullous emphysema with scattered fibrosis/scarring and left upper lobe postsurgical changes. 4. Previous esophageal surgery with anterior mediastinal stent and PEG tube. Comment: Preliminary interpretation was made by [facility]. No discrepancy. CTDI 19.06
--- NOTE | 2018-11-20 09:55 | XRAY ---
Indication: Short of breath. Flulike symptoms. Comparison: February 01, 2018. Portable chest demonstrates new right upper lobe airspace disease. Stable bullous emphysema, left upper lung suture material, and esophageal stent. Heart is not enlarged. Bony thorax intact.
[2018-11-20] MEDS ORDERED: NUTRITIONAL SUPPLEMENT PEG SCH (10:00)
[2018-11-20] MEDS ORDERED: NON-FORMULARY ITEM (Aspirin [Aspirin] 81 MG) PO SCH (10:00)
[2018-11-20] MEDS: ECOTRIN 81 MG PO SCH (10:20)
[2018-11-20] MEDS: Effexor XR 75 MG PO SCH (10:20)
[2018-11-20] MEDS: Protonix 40MG Tablet PO SCH (10:21)
[2018-11-20] MEDS: Seroquel 100 MG PO SCH ×2 (10:21→21:35)
[2018-11-20] MEDS: PATIENT OWN MEDICATION IH SCH ×4 (11:20→19:55)
[2018-11-20] MEDS: REMERON 30 MG PO SCH (21:35)
[2018-11-20] MEDS: ROCEPHIN 1 Gm-D5w 50 ml Bag** 1 G/50 ML IVPB IV SCH (21:35)
[2018-11-20] MEDS ORDERED: MIRTAZAPINE 45 MG PO SCH (22:00)
[2018-11-21] MEDS: Sodium Chloride 0.9% 1000 ML 1,000 ML IV SCH ×2 (02:49→14:12)
[2018-11-21 05:48] LABS: Hematocrit 36.1 % (42-50); Hemoglobin 11.5 gm/dl (12.5-18.0); Mean Cell Volume 89.6 fl (78-100); Mean Corpuscular Hemoglobin 28.5 pg (26-32); Mean Corpuscular Hgb Concent. 31.9 g/dl (32-36); Mean Platelet Volume 9.4 fl (6-9.5); Platelet Count 530 K/mm3 (150-450); Red Blood Count 4.03 M/mm3 (4.1-5.6); Red Cell Distribution Width 15.1 % (11.5-14.0); White Blood Count 8.7 K/mm3 (4.0-10.5)
[2018-11-21 06:00] LABS: ANION GAP 12.1 MEQ/L (5-15); BLOOD UREA NITROGEN 9 mg/dL (9-20); CHLORIDE 107 mmol/L (98-107); Carbon Dioxide 24 mmol/L (22-30); Creatinine 1 0.72 mg/dL (0.66-1.25); Glucose 86 mg/dL (74-106); SODIUM 139 mmol/L (137-145)
[2018-11-21] MEDS: Zithromax 500 MG/ 250 ML NaCl Premix 500 MG/250 ML IVPB IV SCH (06:32)
[2018-11-21 06:38] LABS: Eosinophil 1 % (0.00-3.0); Lymphocytes 30 % (24-44); Monocyte 2 % (0.0-12.0); Neutrophils 67 % (36.-66.); Total Cells Counted 100
[2018-11-21 06:39] LABS: Platelet Estimate NORMAL (NORMAL)
[2018-11-21] MEDS: PATIENT OWN MEDICATION IH SCH ×6 (06:54→19:34)
[2018-11-21] MEDS: Norco 10/325 MG Tablet PO PRN ×3 (07:38→22:18)
--- NOTE | 2018-11-21 08:56 | PCM.NOTE ---
Date and Time: 11/21/18 0850 Subjective Assessment: Pt still on 2L O2 per [place]. Feeling better after his recent breathing tx. - Review of Systems Constitutional: No Fever Respiratory: Cough (productive) Objective Exam General Appearance: no apparent distress, alert Neurologic Exam: oriented x 3, cooperative Skin Exam: normal color, warm, dry, No rash Respiratory Exam: normal breath sounds, lungs clear, No crackles/rales, No rhonchi, No wheezing Cardiovascular Exam: regular rate/rhythm, normal heart sounds, other (midline scar on chest is healing (slight scabs remain)), No murmur Extremity Exam: normal inspection, No pedal edema, No swelling Back Exam: normal inspection, No rash OBJECTIVE DATA Vital Signs: Vital Signs - 24 hr Temp Pulse Resp BP Pulse Ox 11/21/18 07:53 18 11/21/18 07:03 97.9 F 69 18 93/66 92 L 11/21/18 06:55 93 H 18 92 L 11/21/18 04:00 98.2 F 81 18 105/74 94 L 11/21/18 00:00 20 11/20/18 23:45 98.6 F 88 20 106/70 96 11/20/18 22:36 94 H 18 95 11/20/18 20:00 98.2 F 86 18 101/70 93 L 11/20/18 16:00 98.7 F 86 18 93/64 94 L 11/20/18 12:00 98.2 F 100 H 18 119/76 95 11/20/18 09:51 95 H 18 95 11/20/18 09:49 95 Oxygen-Last 24 hours O2 Percentage 2 Liters = 28% O2 Percentage 2 Liters = 28% O2 Percentage 2 Liters = 28% O2 Percentage 2 Liters = 28% O2 Percentage 2 Liters = 28% Pain Assessment - Last Documented Pain Intensity 7 Pain Scale Used 0-10 Pain Scale Intake and Output: Intake & Output 11/18/18 11/19/18 11/20/18 11/21/18 11:59 11:59 11:59 11:59 Intake Total 400 2103 Output Total 250 Balance 400 1853 Weight 76.2 kg 86.4 kg Lab Results: Lab Results-Last 24 Hours 11/20/18 11/21/18 11/21/18 Range/Units 10:35 05:24 05:24 WBC 8.7 (4.0-10.5) K/mm3 RBC 4.03 L (4.1-5.6) M/mm3 Hgb 11.5 L (12.5-18.0) gm/dl Hct 36.1 L (42-50) % MCV 89.6 (78-100) fl MCH 28.5 (26-32) pg MCHC 31.9 L (32-36) g/dl RDW 15.1 H (11.5-14.0) % Plt Count 530 H (150-450) K/mm3 MPV 9.4 (6-9.5) fl Segmented Neutrophils 67 H (36.-66.) % Lymphocytes (Manual) 30 (24-44) % Monocytes (Manual) 2 (0.0-12.0) % Eosinophils (Manual) 1 (0.00-3.0) % Platelet Estimate NORMAL (NORMAL) RBC Morphology NORMAL Sodium 139 (137-145) mmol/L Potassium 4.0 (3.5-5.1) mmol/L Chloride 107 (98-107) mmol/L Carbon Dioxide 24 (22-30) mmol/L Anion Gap 12.1 (5-15) MEQ/L BUN 9 (9-20) mg/dL Creatinine 0.72 (0.66-1.25) mg/dL Estimated GFR > 60.0 ML/MIN Glucose 86 (74-106) mg/dL Calcium 9.0 (8.4-10.2) mg/dL Troponin I < 0.012 (0.000-0.034) ng/mL Radiology Exams: Radiology Procedures Category Date Time Status CHEST 1 VIEW (PORTABLE) Stat Exams 11/19/18 22:19 Completed CHEST WITH CONTRAST [CT] Stat Exams 11/20/18 00:49 Completed Assessment/Plan (1) Pneumonia Current Visit: Yes Status: Acute Qualifiers: Pneumonia type: due to unspecified organism Laterality: right Lung location: upper lobe of lung Qualified Code(s): J18.1 - Lobar pneumonia, unspecified organism Assessment & Plan: Feeling better. On rocephin and zitrhromax day #3. Still has 2L O2 requirement. 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
[2018-11-21] MEDS: Seroquel 100 MG PO SCH ×2 (09:59→22:20)
[2018-11-21] MEDS: Protonix 40MG Tablet PO SCH (09:59)
[2018-11-21] MEDS: ECOTRIN 81 MG PO SCH (09:59)
[2018-11-21] MEDS: Effexor XR 75 MG PO SCH (09:59)
[2018-11-21] MEDS: DUONEB 0.5-3 MG/3 ml Neb IH PRN (15:00)
[2018-11-21] MEDS: REMERON 30 MG PO SCH (22:20)
[2018-11-21] MEDS: ROCEPHIN 1 Gm-D5w 50 ml Bag** 1 G/50 ML IVPB IV SCH (22:22)
[2018-11-22] MEDS: Sodium Chloride 0.9% 1000 ML 1,000 ML IV SCH ×2 (02:50→21:50)
[2018-11-22] MEDS: Zithromax 500 MG/ 250 ML NaCl Premix 500 MG/250 ML IVPB IV SCH (06:23)
--- NOTE | 2018-11-22 08:52 | PCM.NOTE ---
Date and Time: 11/22/1848 Subjective Assessment: Pt is feeling better this morning. - Review of Systems Constitutional: No Fever Respiratory: Cough, Short Of Breath Objective Exam General Appearance: no apparent distress, alert Neurologic Exam: oriented x 3, cooperative Skin Exam: normal color, warm, dry, No rash Respiratory Exam: lungs clear, diminished breath sounds (fair air exchange), No crackles/rales, No rhonchi, No wheezing Cardiovascular Exam: regular rate/rhythm, normal heart sounds, No murmur Back Exam: normal inspection, No rash OBJECTIVE DATA Vital Signs: Vital Signs - 24 hr Temp Pulse Resp BP Pulse Ox 11/22/18 08:00 18 11/22/18 06:46 97.9 F 82 18 110/73 94 L 11/22/18 05:00 98.2 F 85 19 110/72 94 L 11/22/18 04:00 19 11/22/18 01:50 98.2 F 86 17 106/69 94 L 11/22/18 00:00 80 11/21/18 20:00 98.2 F 91 H 15 102/62 91 L 11/21/18 19:34 94 H 17 98 11/21/18 16:00 98.6 F 97 H 18 101/66 95 11/21/18 15:04 94 H 16 93 L 11/21/18 12:00 18 11/21/18 11:33 98.7 F 94 H 18 104/69 92 L Oxygen-Last 24 hours O2 Percentage 2 Liters = 28% O2 Percentage 2 Liters = 28% O2 Percentage 2 Liters = 28% O2 Percentage 2 Liters = 28% O2 Percentage 2 Liters = 28% O2 Percentage 2 Liters = 28% Oxygen Flowrate (L/min)-RT 2 Pain Assessment - Last Documented Pain Intensity 4 Pain Scale Used [id number] Intake and Output: Intake & Output 11/19/18 11/20/18 11/21/18 11/22/18 11:59 11:59 11:59 11:59 Intake Total 400 2383 2701 Output Total 250 2050 Balance 400 2133 651 Weight 76.2 kg 86.4 kg 87.6 kg Assessment/Plan (1) Pneumonia Current Visit: Yes Status: Acute Qualifiers: Pneumonia type: due to unspecified organism Laterality: right Lung location: upper lobe of lung Qualified Code(s): J18.1 - Lobar pneumonia, unspecified organism Assessment & Plan: On IV rocephin and zithromax - if not feeling better through the day today, would change antibiotic therapy. 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
[2018-11-22] MEDS: PATIENT OWN MEDICATION IH SCH ×6 (09:00→20:00)
[2018-11-22] MEDS: Protonix 40MG Tablet PO SCH (09:47)
[2018-11-22] MEDS: ECOTRIN 81 MG PO SCH (09:47)
[2018-11-22] MEDS: Effexor XR 75 MG PO SCH (09:47)
[2018-11-22] MEDS: Seroquel 100 MG PO SCH ×2 (09:47→21:43)
[2018-11-22] MEDS: Norco 10/325 MG Tablet PO PRN ×2 (09:52→19:38)
[2018-11-22] MEDS: DUONEB 0.5-3 MG/3 ml Neb IH PRN (10:07)
[2018-11-22] MEDS: REMERON 30 MG PO SCH (21:43)
[2018-11-22] MEDS: ROCEPHIN 1 Gm-D5w 50 ml Bag** 1 G/50 ML IVPB IV SCH (21:43)
[2018-11-23] MEDS: Zithromax 500 MG/ 250 ML NaCl Premix 500 MG/250 ML IVPB IV SCH (05:53)
[2018-11-23] MEDS: PATIENT OWN MEDICATION IH SCH ×3 (07:25→11:10)
[2018-11-23] MEDS: Norco 10/325 MG Tablet PO PRN (07:51)
--- NOTE | 2018-11-23 08:24 | PCM.DS ---
Discharge Summary Date of Admission: 11/20/18 03:17 Admitting Physician: ANABELLE BEAR Primary Care Provider: ANABELLE BEAR Allergies Allergies Penicillins Allergy (Unknown, Verified 11/20/18 03:24) acetaminophen [From Percocet] Adverse Reaction (Verified 11/20/18 03:24) Itching codeine Adverse Reaction (Verified 11/20/18 03:24) Itching morphine Adverse Reaction (Verified 11/20/18 03:24) Itching naproxen Adverse Reaction (Verified 11/20/18 03:24) Rash oxycodone [From Percocet] Adverse Reaction (Verified 11/20/18 03:24) Itching Hospital Summary - Hospital Course Hospital Course: Pt is 58 yo male pt of mine from [facility] with COPD, Marfan syndrome, Sidney-Danlos syndrome, recent esophageal stricture s/p surgery and stenting, who was admitted through ER with pneumonia. He has been on IV rocephin and zithromax; no steroid needed. He has recovered steadily; still required oxygen for part of the night last night but was off of it during the day for some hours yesterday. Has been up and moving in the room. Will discharge pt to home on po cefdinir. Will be on O2 2L NC at night and prn in the day (home with pulse oximeter). RTC to see me in 1 week. - Vitals & Intake/Output Vital Signs: Vital Signs Temperature 99.2 F 11/23/18 08:00 Pulse Rate 98 H 11/23/18 08:00 Respiratory Rate 18 11/23/18 08:00 Blood Pressure 119/77 11/23/18 08:00 O2 Sat by Pulse Oximetry 95 11/23/18 08:00 Oxygen-Last Documented O2 Percentage 2 Liters = 28% Intake & Output: Intake & Output 11/20/18 11/21/18 11/22/18 11/23/18 11:59 11:59 11:59 11:59 Intake Total 400 2383 3081 2580 Output Total 250 2050 1350 Balance 400 2133 1031 1230 Weight 76.2 kg 86.4 kg 87.6 kg 86.8 kg - Lab Result Diagrams: 11/21/18 05:24 11/21/18 05:24 - Procedures and Test Procedures and Tests throughout Hospitalization: Therapy Orders & Screens 11/19/18 22:21 Respiratory Nebulizer STAT Comment: Diagnosis: Shortness of Breath 11/19/18 22:44 Respiratory Therapy Assessment DAILY Comment: Diagnosis: Shortness of Breath 11/20/18 03:21 Oxygen Nasal Cannula 2 lpm Comment: Diagnosis: Shortness of Breath Respiratory Therapy Consult ROUTINE Comment: Reason For Exam: Diagnosis: Shortness of Breath 11/20/18 04:41 RT Screen per Nursing Assess Comment: Protocol Order Physician Instructions: Greater than 3 points order RT Admission Screen Reason For Exam: Triggered on Admission Diagnosis: Exacerbation of COPD; Pneumonia; SOB Diagnosis: Exacerbation of COPD; Pneumonia; SOB Pneumonia: Yes Home O2: No Asthma: No CHF: No Home CPAP/BIPAP: No Home Nebs/MDI: Yes Total Points: 8 11/20/18 07:00 Respiratory MDI BID Comment: SYMBICORT Diagnosis: Exacerbation of COPD; Pneumonia; SOB Respiratory MDI QID Comment: COMBIVENT Diagnosis: Exacerbation of COPD; Pneumonia; SOB 11/20/18 09:51 Respiratory Therapy Assessment DAILY Comment: Diagnosis: Exacerbation of COPD; Pneumonia; SOB 11/21/18 15:09 Peak Expiratory Flow Rate ONCE Comment: Reason For Exam: Diagnosis: Exacerbation of COPD; Pneumonia; SOB Discharge Exam General Appearance: no apparent distress, alert Neurologic Exam: oriented x 3, cooperative, normal mood/affect Skin Exam: normal color, warm, dry, No rash Ears, Nose, Throat Exam: moist mucous membranes Neck Exam: normal inspection Respiratory Exam: diminished breath sounds (fair to good air exchange), other ( midline chest scar healing), No crackles/rales, No rhonchi, No wheezing Cardiovascular Exam: regular rate/rhythm, normal heart sounds, No murmur Back Exam: normal inspection, No rash Final Diagnosis/Problem List - Final Discharge Diagnosis/Problem (1) Pneumonia Current Visit: Yes Status: Acute Assessment & Plan: improved. Home to finish 14 d of antibiotics (home on cefdinir x 10d). O2 as needed per NC (at night for at least a week, then will recheck overnight pulse ox). 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 Code(s): Q79.6 - SIDNEY-DANLOS SYNDROME - Discharge Disposition: Home, Self-Care Condition: Good Prescriptions: New Cefdinir 300 mg PO BID #20 capsule Continue Nitroglycerin 0.4 mg (Ed) [Nitrostat 0.4 MG (ED)] 0.4 mg PO Q5MIN PRN MR X 3 PRN PRN Reason: Chest Pain Mirtazapine 45 mg PO HS Hydrocodone/Acetaminophen [Hydrocodone-Acetamin 10-325 mg] 1 tab PO Q6H PRN PRN PRN Reason: Pain Aspirin 81 mg PO DAILY Tizanidine HCl 4 mg [Zanaflex 4 MG] 4 mg PO QID Quetiapine Fumarate [Seroquel] 100 mg PO BID Suvorexant [Belsomra] 20 mg PO HS Omeprazole 20 mg PO DAILY Budesonide/Formoterol Fumarate [Symbicort 80-4.5 Mcg Inhaler] 2 puff IH BID Ipratropium/Albuterol Sulfate [Combivent Inhaler] 1 puff IH QID Venlafaxine HCl [Venlafaxine HCl ER] 225 mg PO DAILY Nutritional Supplement [Osmolite 1.5 Winston] 237 ml PEG QID Follow up with: ANABELLE BEAR [Primary Care Provider] - 1 Week
[2018-11-23] MEDS: Protonix 40MG Tablet PO SCH (08:30)
[2018-11-23] MEDS: Effexor XR 75 MG PO SCH (08:30)
[2018-11-23] MEDS: ECOTRIN 81 MG PO SCH (08:30)
[2018-11-23] MEDS: Seroquel 100 MG PO SCH (08:30)
[2018-11-23 13:47] VITALS: BP 111/68; PULSE 95; O2SAT 93
== END 2018-11-23 13:15 | disposition home or self-care (01) ==
LOC: ED 22:10 → MED SURG 11-20 03:17
PROVIDERS: ADMIT Family Medicine; ATTEND Family Medicine
DX: J18.9 Pneumonia, unspecified organism (principal); J44.9 Chronic obstructive pulmonary disease, unspecified; Q87.40 Marfan syndrome, unspecified; Q79.6 Ehlers-Danlos syndromes; Z79.899 Other long term (current) drug therapy; Z79.82 Long term (current) use of aspirin
CPT/HCPCS: 36000; 36415; 36600; 71045; 71260; 80048; 80053; 82375; 82803; 83605; 83880; 84484; 85025; 85379; 85610; 85730; 87631; 93005; 93041; 93268; 94150; 94640; 94760; 94762; 96360; 96365; 99285; G0378; J0456; J0696; A9270-GY

== ENCOUNTER 2019-01-02 00:04 | Emergency (ER) | payer OTHER ==
--- NOTE | 2019-01-02 01:34 | ERPHSYRPT ---
- History of Present Illness Time Seen by Provider: 01/02/19 00:23 Source: patient Exam Limitations: clinical condition Patient Subjective Stated Complaint: pt reports at approx 2200 while flushing his feeding tube it came out. states he was supposed to have the tube changed out January 18. pt reports pressure to the abdomen. Triage Nursing Assessment: pt is aox3, pupils perrl, afebrile, resps easy and non labored, radial pulses strong and equal, cap refill < 3 seconds, abd soft and tender around the insertion site of the feeding tube. no bleeding or drainage noted. skin is well approximated. pt is pink warm dry. Physician History: PATIENT WITH A HISTORY OF COPD, STATES WHILE FLUSHING HIS GASTROTOMY TUBE, IT ACCIDENTLY PULLED OUT, DENIES ABDOMINAL PAIN, EMESIS OR FEVER. Timing/Duration: today Modifying Factors: Improves With: other (PULLED OUT GASTROSTOMY TUBE) Associated Symptoms: denies symptoms Allergies/Adverse Reactions: Penicillins Allergy (Unknown, Verified 11/20/18 03:24) acetaminophen [From Percocet] Adverse Reaction (Verified 11/20/18 03:24) Itching codeine Adverse Reaction (Verified 11/20/18 03:24) Itching morphine Adverse Reaction (Verified 11/20/18 03:24) Itching naproxen Adverse Reaction (Verified 11/20/18 03:24) Rash oxycodone [From Percocet] Adverse Reaction (Verified 11/20/18 03:24) Itching Home Medications: Aspirin 81 mg PO DAILY 10/12/16 [History] Hydrocodone/Acetaminophen [Hydrocodone-Acetamin 10-325 mg] 1 tab PO Q6H PRN PRN 10/12/16 [History] Mirtazapine 45 mg PO HS 10/12/16 [History] Nitroglycerin 0.4 mg (Ed) [Nitrostat 0.4 MG (ED)] 0.4 mg PO Q5MIN PRN MR X 3 PRN 10/12/16 [History] Quetiapine Fumarate [Seroquel] 100 mg PO BID 01/01/18 [History] Tizanidine HCl 4 mg [Zanaflex 4 MG] 4 mg PO QID 01/01/18 [History] Budesonide/Formoterol Fumarate [Symbicort 80-4.5 Mcg Inhaler] 2 puff IH BID 03/03 [History] Ipratropium/Albuterol Sulfate [Combivent Inhaler] 1 puff IH QID 11/20/18 [ History] Nutritional Supplement [Osmolite 1.5 Winston] 237 ml PEG QID 11/20/18 [History] Omeprazole 20 mg PO DAILY 11/20/18 [History] Suvorexant [Belsomra] 20 mg PO HS 11/20/18 [History] Venlafaxine HCl [Venlafaxine HCl ER] 225 mg PO DAILY 11/20/18 [History] Hx Tetanus, Diphtheria Vaccination/Date Given: Yes Hx Influenza Vaccination/Date Given: Yes Hx Pneumococcal Vaccination/Date Given: Yes Immunizations Up to Date: Yes - Review of Systems Constitutional: No Fever, No Chills Eyes: No Symptoms Ears, Nose, & Throat: No Symptoms Respiratory: No Cough, No Dyspnea Cardiac: No Chest Pain, No Edema, No Syncope Abdominal/Gastrointestinal: No Symptoms, No Abdominal Pain, No Nausea, No Vomiting, No Diarrhea Genitourinary Symptoms: No Symptoms, No Dysuria Musculoskeletal: No Symptoms, No Back Pain, No Neck Pain Skin: No Symptoms, No Rash Neurological: No Dizziness, No Focal Weakness, No Sensory Changes Psychological: No Symptoms Endocrine: No Symptoms All Other Systems: Reviewed and Negative - Past Medical History Pertinent Past Medical History: Yes Neurological History: No Pertinent History ENT History: Cataracts Cardiac History: No Pertinent History Respiratory History: Emphysema Endocrine Medical History: No Pertinent History Musculoskeletal History: Other GI Medical History: Esophageal Disorder, GERD, Hemorrhoids, Hernia History: No Pertinent History Psycho-Social History: Anxiety, Depression Male Reproductive Disorders: No Pertinent History Other Medical History: 2000-Diagnosed with Marfan syndrome and Stacey-Danlos syndrome - Past Surgical History Past Surgical History: Yes Neuro Surgical History: No Pertinent History Cardiac: No Pertinent History Respiratory: Lobectomy Gastrointestinal: Hernia Repair, Other Genitourinary: No Pertinent History Musculoskeletal: Orthopedic Surgery Male Surgical History: No Pertinent History Other Surgical History: left knee "polyp or blockage removed,not cancer 2015", aug 2017 had esoph/hiatel hernia/stomach surgery in [facility] ,also at this time left clavicle bone removed and place at stomach to wrap remainder of stomach around it. peg tube has been replaced x2. feeding tube - Social History Smoking Status: Never smoker Exposure to second hand smoke: No Drug Use: none Patient Lives Alone: No - Nursing Vital Signs Nursing Vital Signs: Initial Vital Signs Temperature 99.7 F 01/02/19 00:10 Pulse Rate 102 H 01/02/19 00:10 Respiratory Rate 20 01/02/19 00:10 Blood Pressure 107/73 01/02/19 00:10 O2 Sat by Pulse Oximetry 98 01/02/19 00:10 Pain Scale Pain Intensity 2 - Physical Exam General Appearance: no apparent distress Eye Exam: PERRL/EOMI Ears, Nose, Throat Exam: normal ENT inspection Neck Exam: normal inspection Respiratory Exam: normal breath sounds Cardiovascular Exam: regular rate/rhythm Gastrointestinal/Abdomen Exam: soft, normal bowel sounds, other (SUPRA UMBILICAL GASTROTOMY STOMA PINK) Back Exam: normal inspection Extremity Exam: normal inspection, normal range of motion Neurologic Exam: alert, oriented x 3, cooperative Skin Exam: normal color, warm SpO2 Interpretation: normal SpO2: 98 - Progress Progress Note: 01/02/19 01:31 INSERTION OF 20 ALB[place]IAN GASTROSTOMY TUBE UNDER STERILE TECHNIQUE, CUFF FILLED WITH STERILE SALINE WITHOUT COMPLICATION, EASILY FLUSHED WITH GASTRIC CONTENTS. 01/02/19 01:33 01/02/19 01:34 Counseled pt/family regarding: diagnosis, need for follow-up - Departure Departure Disposition: Home Clinical Impression: REPLACED GASTROTOMY TUBE Condition: Stable Critical Care Time: No Referrals: ANABELLE BEAR [Primary Care Provider] - Additional Instructions: CONTINUE GASTROSTOMY TUBE FEEDING. RETURN TO EMERGENCY ROOM FOR PROBLEMS.
[2019-01-02 01:37] VITALS: BP 106/74; PULSE 88; O2SAT 99
== END 2019-01-02 01:39 | disposition home or self-care (01) ==
LOC: ED 00:04
DX: Z43.1 Encounter for attention to gastrostomy (principal)
CPT/HCPCS: 43762; 99283

== ENCOUNTER 2019-09-08 18:38 | Observation (INO) | payer OTHER ==
[2019-09-08] MEDS ORDERED: Zofran 4 MG/2 ML VIAL IV ONE (19:58)
[2019-09-08] MEDS ORDERED: PROTONIX 40 MG IV IV ONE ×2 (19:58→20:21)
[2019-09-08] MEDS ORDERED: Sodium Chloride 0.9% 1000 ML 1,000 ML IV STA (19:58)
[2019-09-08] MEDS ORDERED: Hydromorphone 1 mg/ml Ampule IV ONE (20:01)
[2019-09-08] MEDS ORDERED: Hydromorphone 1 mg/ml Ampule ONE (20:21)
[2019-09-08] MEDS ORDERED: Sodium Chloride 0.9% 1000 ML 1,000 ML ONE (20:21)
[2019-09-08] MEDS ORDERED: Zofran 4 MG/2 ML VIAL ONE (20:21)
[2019-09-08 20:32] LABS: Absolute Neutrophil Ct (ANC) 19.24 (1.4-6.9); BASOPHIL % 0.2 % (0.0-0.4); Basophil (Absolute #) 0.04 (0-0.4); Eosinophil % 0.2 % (0.00-5.0); Eosinophil (Absolute #) 0.04 (0-0.5); Hematocrit 40.6 % (42-50); Hemoglobin 13.3 gm/dl (12.5-18.0); Lymphocyte (Absolute #) 0.72 (1.0-4.6); Lymphocytes % 3.4 % (24.0-44.0); Mean Cell Volume 77.3 fl (78-100); Mean Corpuscular Hemoglobin 25.3 pg (26-32); Mean Corpuscular Hgb Concent. 32.8 g/dl (32-36); Mean Platelet Volume 10.7 fl (7.5-11.0); Monocyte (Absolute #) 1.14 (0.0-1.3); Monocytes % 5.4 % (0.0-12.0); Neutrophil % 90.8 % (36.0-66.0); Platelet Count 413 K/mm3 (150-450); Red Blood Count 5.25 M/mm3 (4.1-5.6); Red Cell Distribution Width 16.9 % (11.5-14.0); White Blood Count 21.2 K/mm3 (4.0-10.5)
[2019-09-08 20:43] LABS: ALBUMIN 5.3 g/dL (3.5-5.0); ALKALINE PHOSPHATASE 208 U/L (38-126); AMYLASE 57 U/L (30-110); ANION GAP 17.2 MEQ/L (5-15); BLOOD UREA NITROGEN 8 mg/dL (9-20); CHLORIDE 102 mmol/L (98-107); Calcium 10.1 mg/dL (8.4-10.2); Carbon Dioxide 27 mmol/L (22-30); Creatinine 1 0.77 mg/dL (0.66-1.25); Glucose 132 mg/dL (74-106); LIPASE 15 U/L (23-300); Potassium 4.3 mmol/L (3.5-5.1); SGOT/AST 23 U/L (17-59); SGPT/ALT 13 U/L (0-50); SODIUM 143 mmol/L (137-145); Total Protein 9.3 g/dL (6.3-8.2)
[2019-09-08 22:55] LABS: Appearance CLEAR (CLEAR); Bilirubin NEGATIVE (NEGATIVE); Blood NEGATIVE Ery/ul (0-5); Glucose NEGATIVE (NEGATIVE); Ketones SMALL (NEGATIVE); Leukocyte Esterase NEGATIVE (NEGATIVE); Mucus SLIGHT /HPF (NEGATIVE); Nitrite NEGATIVE (NEGATIVE); Protein,Urine Dip NEGATIVE (Negative); RBC 0-2 /HPF (0-2); Urobilinogen NEGATIVE mg/dL (0-1)
[2019-09-08] MEDS ORDERED: CLINDAMYCIN-D5W 600 MG/50 ML*** 600 MG/50 ML BAG IV STA (23:02)
[2019-09-08] MEDS ORDERED: LEVOFLOXACIN 750MG/150ML D5W 750 MG/150 ML BAG IV STA (23:02)
[2019-09-08] MEDS ORDERED: CLINDAMYCIN-D5W 600 MG/50 ML*** 600 MG/50 ML BAG IV ONE (23:07)
--- NOTE | 2019-09-08 23:10 | ERPHSYRPT ---
- History of Present Illness Time Seen by Provider: 09/08/19 20:05 Source: patient Exam Limitations: no limitations Patient Subjective Stated Complaint: pt states he woke up today with acid reflux and is afraid that he aspirated some of it. states he has been feeling short of breath all day Triage Nursing Assessment: pt alerta nd oriented, answers questions approp. pt ambulatory with stedy gait noted. resspirations nonlabored. pt reports shortness of breath at rest. states he has been unable to eat or drink much today d/t sob. skin warm and dry. Physician History: 59 years old male with history of esophageal perforation of her hernia repair needing section of esophagus and part of stomach left-sided upper ribs and clavicle and esophageal stricture needing stent placement and feeding tube present in the ER with chief complaint of shortness of breath. Patient does have history of multiple aspiration pneumonias in the past. Patient reports he was having acid reflux really bad this morning and was about to vomit but he aspirated and since then he has tried heating and increasing shortness of breath initially with activity and only when resting. Is complaining of dull aching pain in the epigastric area and substernal pressure. He has used inhaler which did help but not completely nonambulatory patient reports he develops pneumonia every time he aspirated. He also noticed that his feeding tube was not flushing very well. This mild generalized abdominal discomfort but no diarrhea. Denies any fever or chills. Timing/Duration: today, gradual onset, sudden, worse Activities at Onset: rest Severity of Dyspnea-Max: moderate Severity of Dyspnea-Current: moderate Possible Cause: frequent episodes Modifying Factors: Improves With: albuterol inhaler Associated Symptoms: cough, chest pain/discomfort, productive cough Allergies/Adverse Reactions: Penicillins Allergy (Unknown, Verified 09/08/19 19:07) acetaminophen [From Percocet] Adverse Reaction (Verified 09/08/19 19:07) Itching codeine Adverse Reaction (Verified 09/08/19 19:07) Itching morphine Adverse Reaction (Verified 09/08/19 19:07) Itching naproxen Adverse Reaction (Verified 09/08/19 19:07) Rash oxycodone [From Percocet] Adverse Reaction (Verified 09/08/19 19:07) Itching Home Medications: Aspirin 81 mg PO DAILY 10/12/16 [History] Hydrocodone/Acetaminophen [Hydrocodone-Acetamin 10-325 mg] 1 tab PO Q6H PRN PRN 10/12/16 [History] Mirtazapine 45 mg PO HS 10/12/16 [History] Nitroglycerin 0.4 mg (Ed) [Nitrostat 0.4 MG (ED)] 0.4 mg PO Q5MIN PRN MR X 3 PRN 10/12/16 [History] Quetiapine Fumarate [Seroquel] 100 mg PO BID 01/01/18 [History] Tizanidine HCl 4 mg [Zanaflex 4 MG] 4 mg PO QID 01/01/18 [History] Budesonide/Formoterol Fumarate [Symbicort 80-4.5 Mcg Inhaler] 2 puff IH BID 03/03 [History] Ipratropium/Albuterol Sulfate [Combivent Inhaler] 1 puff IH QID 11/20/18 [ History] Omeprazole 20 mg PO DAILY 11/20/18 [History] Suvorexant [Belsomra] 20 mg PO HS PRN PRN 11/20/18 [History] Venlafaxine HCl [Venlafaxine HCl ER] 225 mg PO DAILY 11/20/18 [History] Hx Tetanus, Diphtheria Vaccination/Date Given: Yes Hx Influenza Vaccination/Date Given: Yes Hx Pneumococcal Vaccination/Date Given: Yes Immunizations Up to Date: Yes - Review of Systems Eyes: No Symptoms Ears, Nose, & Throat: No Symptoms Respiratory: Cough, Dyspnea, Wheezing Cardiac: Chest Pain, Palpitations Abdominal/Gastrointestinal: Abdominal Pain, Nausea, Vomiting Genitourinary Symptoms: No Symptoms Musculoskeletal: Back Pain Skin: No Symptoms Neurological: No Symptoms Psychological: No Symptoms Endocrine: No Symptoms Hematologic/Lymphatic: No Symptoms Immunological/Allergic: No Symptoms - Past Medical History Pertinent Past Medical History: Yes Neurological History: No Pertinent History ENT History: Cataracts Cardiac History: No Pertinent History Respiratory History: Emphysema Endocrine Medical History: No Pertinent History Musculoskeletal History: Other GI Medical History: Esophageal Disorder, GERD, Hemorrhoids, Hernia History: No Pertinent History Psycho-Social History: Anxiety, Depression Male Reproductive Disorders: No Pertinent History Other Medical History: 2000-Diagnosed with Marfan syndrome and Stacey-Danlos syndrome - Past Surgical History Past Surgical History: Yes Neuro Surgical History: No Pertinent History Cardiac: No Pertinent History Respiratory: Lobectomy Gastrointestinal: Hernia Repair, Other Genitourinary: No Pertinent History Musculoskeletal: Orthopedic Surgery Male Surgical History: No Pertinent History Other Surgical History: left knee "polyp or blockage removed,not cancer 2015", aug 2017 [facility]also at this time left clavicle bone removed and place at stomach to wrap remainder of stomach around it. peg tube has been replaced x2. feeding tube - Social History Smoking Status: Former smoker Exposure to second hand smoke: No Drug Use: none Patient Lives Alone: No - Nursing Vital Signs Nursing Vital Signs: Initial Vital Signs Pulse Rate 97 H 09/08/19 18:58 Respiratory Rate 18 09/08/19 18:58 Blood Pressure 140/102 09/08/19 18:58 O2 Sat by Pulse Oximetry 97 09/08/19 18:58 Pain Scale Pain Intensity 0 - Physical Exam General Appearance: no apparent distress Eye Exam: eyes nml inspection Ears, Nose, Throat Exam: hearing grossly normal, normal ENT inspection Neck Exam: normal inspection, non-tender, supple, full range of motion Respiratory Exam: normal breath sounds, chest tenderness, crackles/rales, wheezing, No respiratory distress Cardiovascular/Chest Exam: normal heart sounds, regular rate/rhythm Abdominal/Gastrointestinal Exam: soft, tenderness (mild generalized), other, No guarding, No rebound Extremity Exam: non-tender Neurologic Exam: alert, oriented x 3, cooperative Skin Exam: normal color SpO2 Interpretation: normal SpO2: 97 O2 Delivery: Room Air - Course Nursing assessment & vital signs reviewed: Yes Ordered Tests: Active Orders 24 hr Category Date Time Status IV Insertion STAT Care 09/08/19 19:58 Active NPO (ED) STAT Care 09/08/19 19:58 Active ABDOMEN AND PELVIS W CONTRAST [CT] Stat Exams 09/08/19 19:59 Taken CHEST WITH CONTRAST [CT] Stat Exams 09/08/19 20:01 Taken AMYLASE Stat Lab 09/08/19 20:20 Completed BLOOD CULTURE Stat Lab 09/08/19 20:20 Received CBC W DIFF Stat Lab 09/08/19 20:20 Completed CMP Stat Lab 09/08/19 20:20 Completed LIPASE Stat Lab 09/08/19 20:20 Completed Lactic Acid Stat Lab 09/08/19 20:25 Completed Lactic Acid Stat Lab 09/08/19 22:33 Completed UA W/RFX UR CULTURE Stat Lab 09/08/19 22:49 Completed Transfer Order Routine Transfer 09/08/19 Ordered Medication Summary Generic Name Dose Route Start Last Admin Trade Name Stanton PRN Reason Stop Dose Admin Levofloxacin/Dextrose 750 mg in 150 mls @ 100 mls/hr 09/08/19 23:02 09/08/19 23:32 Levofloxacin 750mg/150ml D5w IV 09/09/19 00:31 100 mls/hr STAT STA 100 mls/hr Administration Discontinued Medications Generic Name Dose Route Start Last Admin Trade Name Stanton PRN Reason Stop Dose Admin Hydromorphone HCl 0.5 mg 09/08/19 20:01 09/08/19 20:29 Hydromorphone 1 Mg/Ml Ampule IV 09/08/19 20:02 0.5 mg STAT ONE Administration Hydromorphone HCl Confirm 09/08/19 20:21 Hydromorphone 1 Mg/Ml Ampule Administered 09/08/19 20:22 Dose 1 mg .ROUTE .STK-MED ONE Sodium Chloride 1,000 mls @ 999 mls/hr 09/08/19 19:58 09/08/19 20:43 Sodium Chloride 0.9% 1000 Ml IV 09/08/19 20:58 999 mls/hr .Q1H1M STA Administration Sodium Chloride Confirm 09/08/19 20:21 Sodium Chloride 0.9% 1000 Ml Administered 09/08/19 20:22 Dose 1,000 mls @ ud .ROUTE .STK-MED ONE Clindamycin HCl/Dextrose 600 mg in 50 mls @ 100 mls/hr 09/08/19 23:02 23:10 Clindamycin-D5w 600 Mg/50 Ml IV 09/08/19 23:31 100 mls/hr STAT STA 100 mls/hr Administration Clindamycin HCl/Dextrose Confirm 09/08/19 23:07 Clindamycin-D5w 600 Mg/50 Ml Administered 09/08/19 23:08 Dose 600 mg in 50 mls @ ud IV .STK-MED ONE Levofloxacin/Dextrose Confirm 09/08/19 23:31 Levofloxacin 750mg/150ml D5w Administered 09/08/19 23:32 Dose 750 mg in 150 mls @ ud IV .STK-MED ONE Ondansetron HCl 4 mg 09/08/19 19:58 09/08/19 20:29 Zofran 4 Mg/2 Ml Vial IV 09/08/19 19:59 4 mg STAT ONE Administration Ondansetron HCl Confirm 09/08/19 20:21 Zofran 4 Mg/2 Ml Vial Administered 09/08/19 20:22 Dose 4 mg .ROUTE .STK-MED ONE Pantoprazole Sodium 40 mg 09/08/19 19:58 09/08/19 20:28 Protonix 40 Mg Iv IV 09/08/19 19:59 40 mg STAT ONE Administration Pantoprazole Sodium Confirm 09/08/19 20:21 Protonix 40 Mg Iv Administered 09/08/19 20:22 Dose 40 mg IV .STK-MED ONE Lab/Rad Data: Laboratory Result Diagrams 09/08/19 20:20 09/08/19 20:20 Laboratory Results 09/08/19 09/08/19 09/08/19 Range/Units 22:49 22:33 20:25 WBC (4.0-10.5) K/mm3 RBC (4.1-5.6) M/mm3 Hgb (12.5-18.0) gm/dl Hct (42-50) % MCV (78-100) fl MCH (26-32) pg MCHC (32-36) g/dl RDW (11.5-14.0) % Plt Count (150-450) K/mm3 MPV (7.5-11.0) fl Gran % (36.0-66.0) % Eos # (Auto) (0-0.5) Absolute Lymphs (auto) (1.0-4.6) Absolute Monos (auto) (0.0-1.3) Lymphocytes % (24.0-44.0) % Monocytes % (0.0-12.0) % Eosinophils % (0.00-5.0) % Basophils % (0.0-0.4) % Absolute Granulocytes (1.4-6.9) Basophils # (0-0.4) Sodium (137-145) mmol/L Potassium (3.5-5.1) mmol/L Chloride (98-107) mmol/L Carbon Dioxide (22-30) mmol/L Anion Gap (5-15) MEQ/L BUN (9-20) mg/dL Creatinine (0.66-1.25) mg/dL Estimated GFR ML/MIN Glucose (74-106) mg/dL Lactic Acid 2.6 H 2.4 H (0.4-2.0) Calcium (8.4-10.2) mg/dL Total Bilirubin (0.2-1.3) mg/dL AST (17-59) U/L ALT (0-50) U/L Alkaline Phosphatase (38-126) U/L Serum Total Protein (6.3-8.2) g/dL Albumin (3.5-5.0) g/dL Amylase (30-110) U/L Lipase (23-300) U/L Urine Color YELLOW (YELLOW) Urine Appearance CLEAR (CLEAR) Urine pH 7.0 (5-6) Ur Specific [place] 1.040 (1.005-1.025) Urine Protein NEGATIVE (Negative) Urine Ketones SMALL (NEGATIVE) Urine Blood NEGATIVE (0-5) Rai/ul Urine Nitrite NEGATIVE (NEGATIVE) Urine Bilirubin NEGATIVE (NEGATIVE) Urine Urobilinogen NEGATIVE (0-1) mg/dL Ur Leukocyte Esterase NEGATIVE (NEGATIVE) Urine WBC (Auto) NONE (0-5) /HPF Urine RBC (Auto) 0-2 (0-2) /HPF U Epithel Cells (Auto) NONE (FEW) /HPF Urine Bacteria (Auto) NONE (NEGATIVE) /HPF Urine Mucus (Auto) SLIGHT (NEGATIVE) /HPF Urine Culture Reflexed NO (NO) Urine Glucose NEGATIVE (NEGATIVE) mg/dL 09/08/19 09/08/19 Range/Units 20:20 20:20 WBC 21.2 H (4.0-10.5) K/mm3 RBC 5.25 (4.1-5.6) M/mm3 Hgb 13.3 (12.5-18.0) gm/dl Hct 40.6 L (42-50) % MCV 77.3 L (78-100) fl MCH 25.3 L (26-32) pg MCHC 32.8 (32-36) g/dl RDW 16.9 H (11.5-14.0) % Plt Count 413 (150-450) K/mm3 MPV 10.7 (7.5-11.0) fl Gran % 90.8 H (36.0-66.0) % Eos # (Auto) 0.04 (0-0.5) Absolute Lymphs (auto) 0.72 L (1.0-4.6) Absolute Monos (auto) 1.14 (0.0-1.3) Lymphocytes % 3.4 L (24.0-44.0) % Monocytes % 5.4 (0.0-12.0) % Eosinophils % 0.2 (0.00-5.0) % Basophils % 0.2 (0.0-0.4) % Absolute Granulocytes 19.24 H (1.4-6.9) Basophils # 0.04 (0-0.4) Sodium 143 (137-145) mmol/L Potassium 4.3 (3.5-5.1) mmol/L Chloride 102 (98-107) mmol/L Carbon Dioxide 27 (22-30) mmol/L Anion Gap 17.2 H (5-15) MEQ/L BUN 8 L (9-20) mg/dL Creatinine 0.77 (0.66-1.25) mg/dL Estimated GFR > 60.0 ML/MIN Glucose 132 H (74-106) mg/dL Lactic Acid (0.4-2.0) Calcium 10.1 (8.4-10.2) mg/dL Total Bilirubin 0.50 (0.2-1.3) mg/dL AST 23 (17-59) U/L ALT 13 (0-50) U/L Alkaline Phosphatase 208 H (38-126) U/L Serum Total Protein 9.3 H (6.3-8.2) g/dL Albumin 5.3 H (3.5-5.0) g/dL Amylase 57 (30-110) U/L Lipase 15 L (23-300) U/L Urine Color (YELLOW) Urine Appearance (CLEAR) Urine pH (5-6) Ur Specific [place] (1.005-1.025) Urine Protein (Negative) Urine Ketones (NEGATIVE) Urine Blood (0-5) Rai/ul Urine Nitrite (NEGATIVE) Urine Bilirubin (NEGATIVE) Urine Urobilinogen (0-1) mg/dL Ur Leukocyte Esterase (NEGATIVE) Urine WBC (Auto) (0-5) /HPF Urine RBC (Auto) (0-2) /HPF U Epithel Cells (Auto) (FEW) /HPF Urine Bacteria (Auto) (NEGATIVE) /HPF Urine Mucus (Auto) (NEGATIVE) /HPF Urine Culture Reflexed (NO) Urine Glucose (NEGATIVE) mg/dL - Progress Progress: improved, re-examined Air Movement: fair Progress Note: 59 years old is evaluated for shortness of breath after possible aspiration. Is given a breathing treatment and fluids. He has a white count of 21 and lactate of 2.6. I have obtained CT chest and abdomen which showed right upper lobe pneumonia but no other acute findings.started on antibiotics. Discussed with Dr. Oconnor and patient is being admitted. 09/09/19 00:03 Blood Culture(s) Obtained: Yes Antibiotics given: Yes Discussed with : Laury Will see patient in: hospital (observation) Counseled pt/family regarding: lab results, diagnosis, rad results - Departure Departure Disposition: Observation Clinical Impression: Esophageal stricture Pneumonia Qualifiers: Pneumonia type: due to unspecified organism Laterality: right Lung location: upper lobe of lung Qualified Code(s): J18.9 - Pneumonia, unspecified organism Condition: Fair Critical Care Time: No Referrals: ANABELLE BEAR [Primary Care Provider] -
[2019-09-08] MEDS ORDERED: LEVOFLOXACIN 750MG/150ML D5W 750 MG/150 ML BAG IV ONE (23:31)
[2019-09-09] MEDS ORDERED: NovoLOG Insulin SQ PRN (00:12)
[2019-09-09] MEDS ORDERED: DUONEB 0.5-3 MG/3 ml Neb IH PRN (00:19)
[2019-09-09] MEDS ORDERED: DUONEB 0.5-3 MG/3 ml Neb IH SCH (03:00)
[2019-09-09 06:08] LABS: Hematocrit 33.8 % (42-50); Hemoglobin 10.9 gm/dl (12.5-18.0); Mean Cell Volume 77.5 fl (78-100); Mean Corpuscular Hgb Concent. 32.2 g/dl (32-36); Mean Platelet Volume 10.2 fl (7.5-11.0); Platelet Count 343 K/mm3 (150-450); Red Blood Count 4.36 M/mm3 (4.1-5.6); Red Cell Distribution Width 16.5 % (11.5-14.0); White Blood Count 17.3 K/mm3 (4.0-10.5)
[2019-09-09 06:37] LABS: ANION GAP 14.1 MEQ/L (5-15); BLOOD UREA NITROGEN 8 mg/dL (9-20); CHLORIDE 103 mmol/L (98-107); Carbon Dioxide 26 mmol/L (22-30); Creatinine 1 0.74 mg/dL (0.66-1.25); Glucose 118 mg/dL (74-106); Potassium 3.9 mmol/L (3.5-5.1); SODIUM 139 mmol/L (137-145)
--- NOTE | 2019-09-09 08:09 | XRAY ---
Indication: Acid reflux. Possible aspiration or esophageal perforation. Multiple contiguous axial images obtained through the chest using 80 cc Isovue 370 contrast. Comparison: November 20, 2018. Stable air/fluid distended esophageal bypass with stent. No abnormal free fluid or air to suggest perforation. Heart is not enlarged. Aorta is normal in course and caliber. No pathologic mediastinal/hilar lymphadenopathy. Lungs again demonstrate extensive bullous emphysema, scattered fibrosis/scarring, and left upper lobe suture material. Interval clearing of previous right upper lobe airspace opacities with mild residual/recurrent opacity near the apex. No effusion. Bony thorax intact. CT abdomen/pelvis reported separately. Impression: 1. Stable esophageal postsurgical changes without complications. 2. Mild residual versus recurrent right apical airspace disease. 3. Again diffuse bullous emphysema and fibrosis/scarring. Comment: Preliminary interpretation was made by [facility]. No critical discrepancy.
--- NOTE | 2019-09-09 08:15 | XRAY ---
Indication: Acid reflux. Possible aspiration or esophageal perforation. Multiple contiguous axial images obtained through the abdomen and pelvis using 80 cc Isovue 370 contrast. Comparison: November 20, 2018. CT chest reported separately. Stable PEG tube with balloon tip again in the gastric lumen. Noncontrasted stomach and bowel loops remain nonobstructed. Normal appendix. No free fluid/air. Stable 7 mm hepatic cyst and enlarged prostate gland. Remaining liver, gallbladder, pancreas, spleen, adrenal glands, kidneys, ureters, and bladder appear unremarkable. Stable mild aortoiliac calcifications without AAA. No pathologic retroperitoneal lymphadenopathy. Osseous structures intact. Impression: 1. Stable PEG tube in situ, hepatic cyst, and enlarged prostate gland. 2. Remaining CT abdomen/pelvis with contrast exam is negative. Comment: Preliminary interpretation was made by [facility]. No critical discrepancy.
[2019-09-09] MEDS ORDERED: Nitrostat 0.4 MG Tablet SL PRN (09:20)
[2019-09-09] MEDS ORDERED: MEDICATION INTERVENTION PO SCH (09:30)
[2019-09-09] MEDS: PATIENT OWN MEDICATION IH SCH ×6 (09:45→19:59)
[2019-09-09] MEDS: Effexor XR 75 MG PO SCH (09:56)
[2019-09-09] MEDS: Protonix 40MG Tablet PO SCH (09:56)
[2019-09-09] MEDS: ECOTRIN 81 MG PO SCH (09:57)
[2019-09-09] MEDS: Pepcid 20 MG VIAL IV SCH ×2 (09:57→20:34)
[2019-09-09] MEDS: Zanaflex 4 MG PO SCH ×3 (09:57→16:47)
[2019-09-09] MEDS: Seroquel 100 MG PO SCH ×2 (09:57→20:33)
[2019-09-09] MEDS ORDERED: NON-FORMULARY ITEM (Aspirin [Aspirin] 81 MG) PO SCH (10:00)
[2019-09-09] MEDS: Norco 10/325 MG Tablet PO PRN ×2 (10:05→20:35)
[2019-09-09] MEDS: CLINDAMYCIN-D5W 900 MG/50 ML*** 900 MG/50 ML BAG IV SCH ×2 (13:11→21:17)
[2019-09-09] MEDS ORDERED: Sodium Chloride 0.9% 500 ML 500 ML IV ONE (18:39)
[2019-09-09] MEDS ORDERED: Bystolic 5 MG ONE (19:39)
[2019-09-09] MEDS: Dextrose 5% -0.45 NaCl 1000 ML 1,000 ML IV SCH (20:01)
[2019-09-09] MEDS: REMERON 30 MG PO SCH (20:33)
[2019-09-09] MEDS: Levofloxacin 250MG Tablet PO SCH (20:33)
[2019-09-09] MEDS ORDERED: MIRTAZAPINE 45 MG PO SCH (22:00)
[2019-09-10] MEDS: Dextrose 5% -0.45 NaCl 1000 ML 1,000 ML IV SCH ×2 (04:18→19:50)
[2019-09-10] MEDS: CLINDAMYCIN-D5W 900 MG/50 ML*** 900 MG/50 ML BAG IV SCH ×3 (05:11→22:02)
[2019-09-10 05:54] LABS: Hematocrit 32.7 % (42-50); Hemoglobin 10.4 gm/dl (12.5-18.0); Mean Corpuscular Hemoglobin 25.1 pg (26-32); Mean Corpuscular Hgb Concent. 31.8 g/dl (32-36); Mean Platelet Volume 10.2 fl (7.5-11.0); Platelet Count 276 K/mm3 (150-450); Red Blood Count 4.14 M/mm3 (4.1-5.6); Red Cell Distribution Width 16.9 % (11.5-14.0); White Blood Count 9.3 K/mm3 (4.0-10.5)
[2019-09-10 06:07] LABS: ALBUMIN 3.7 g/dL (3.5-5.0); ALKALINE PHOSPHATASE 111 U/L (38-126); ANION GAP 11.3 MEQ/L (5-15); BLOOD UREA NITROGEN 8 mg/dL (9-20); CHLORIDE 107 mmol/L (98-107); Calcium 8.5 mg/dL (8.4-10.2); Carbon Dioxide 27 mmol/L (22-30); Creatinine 1 0.84 mg/dL (0.66-1.25); Glucose 105 mg/dL (74-106); Potassium 3.6 mmol/L (3.5-5.1); SGOT/AST 13 U/L (17-59); SGPT/ALT 8 U/L (0-50); SODIUM 142 mmol/L (137-145); Total Protein 6.7 g/dL (6.3-8.2)
[2019-09-10] MEDS: PATIENT OWN MEDICATION IH SCH ×6 (07:08→20:09)
[2019-09-10] MEDS: Protonix 40MG Tablet PO SCH (09:30)
[2019-09-10] MEDS: Effexor XR 75 MG PO SCH (09:31)
[2019-09-10] MEDS: ECOTRIN 81 MG PO SCH (09:31)
[2019-09-10] MEDS: Pepcid 20 MG VIAL IV SCH ×2 (09:31→22:01)
[2019-09-10] MEDS: Seroquel 100 MG PO SCH ×2 (09:31→22:01)
[2019-09-10] MEDS: Norco 10/325 MG Tablet PO PRN ×2 (09:33→22:01)
[2019-09-10] MEDS: Levofloxacin 250MG Tablet PO SCH (22:01)
[2019-09-10] MEDS: REMERON 30 MG PO SCH (22:01)
[2019-09-11] MEDS: CLINDAMYCIN-D5W 900 MG/50 ML*** 900 MG/50 ML BAG IV SCH (05:05)
[2019-09-11] MEDS: Norco 10/325 MG Tablet PO PRN (05:06)
[2019-09-11 05:23] LABS: Hematocrit 31.5 % (42-50); Mean Cell Volume 78.4 fl (78-100); Mean Corpuscular Hemoglobin 24.9 pg (26-32); Mean Corpuscular Hgb Concent. 31.7 g/dl (32-36); Platelet Count 291 K/mm3 (150-450); Red Blood Count 4.02 M/mm3 (4.1-5.6); Red Cell Distribution Width 16.8 % (11.5-14.0); White Blood Count 7.7 K/mm3 (4.0-10.5)
[2019-09-11 05:43] LABS: ANION GAP 10.5 MEQ/L (5-15); BLOOD UREA NITROGEN 5 mg/dL (9-20); CHLORIDE 107 mmol/L (98-107); Calcium 8.8 mg/dL (8.4-10.2); Carbon Dioxide 26 mmol/L (22-30); Glucose 92 mg/dL (74-106); Potassium 3.5 mmol/L (3.5-5.1); SODIUM 140 mmol/L (137-145)
[2019-09-11] MEDS: PATIENT OWN MEDICATION IH SCH ×2 (07:43)
[2019-09-11 07:48] VITALS: PULSE 80
[2019-09-11 08:04] VITALS: BP 113/77; O2SAT 92
--- NOTE | 2019-09-11 08:28 | PCM.DS ---
Discharge Summary Date of Admission: 09/09/19 00:03 Admitting Physician: ANABELLE BEAR Primary Care Provider: ANABELLE BEAR Allergies Allergies Penicillins Allergy (Unknown, Verified 09/08/19 19:07) acetaminophen [From Percocet] Adverse Reaction (Verified 09/08/19 19:07) Itching codeine Adverse Reaction (Verified 09/08/19 19:07) Itching morphine Adverse Reaction (Verified 09/08/19 19:07) Itching naproxen Adverse Reaction (Verified 09/08/19 19:07) Rash oxycodone [From Percocet] Adverse Reaction (Verified 09/08/19 19:07) Itching Hospital Summary - Hospital Course Hospital Course: Pt is 59 yo male pt of mine from [facility] Marfan syndrome, Sidney-Danlos syndrome, paraesophageal herni, gtube, esophageal stricture and stenting, emphysema, and GERD who had some acid reflux and aspirated stomach contents. He came to ER and was found to have RUL pneumonia. He was started on IV clindamycin and levaquin. He has gradually improved, feeling better today. No O2 overnight. Still having some cough. Will send pt home today, adding pepcid at hs to his PPI regimen. G tube initially would not flush but seems to be flushing well now. On admission his WBC were 21,000. Today 7,700. his hgb dropped with hydration from normal range to around 10.5 where it has been stable. bmp normal today. Pt to f/u with me in 1 wk. Home on clindamycin po. - Vitals & Intake/Output Vital Signs: Vital Signs Temperature 97.6 F 09/11/19 08:00 Pulse Rate 80 09/11/19 08:00 Respiratory Rate 18 09/11/19 08:00 Blood Pressure 113/77 09/11/19 08:00 O2 Sat by Pulse Oximetry 92 L 09/11/19 08:00 Intake & Output: Intake & Output 09/08/19 09/09/19 09/10/19 09/11/19 11:59 11:59 11:59 11:59 Intake Total 480 2805 3354 Output Total 750 1705 1050 Balance -270 1100 2304 Weight 83.8 kg 86.1 kg 85.7 kg - Lab Result Diagrams: 09/11/19 05:00 09/11/19 05:00 Lab Results-Last 24 Hrs: Lab Results-Last 24 Hours 09/11/19 09/11/19 Range/Units 05:00 05:00 WBC 7.7 (4.0-10.5) K/mm3 RBC 4.02 L (4.1-5.6) M/mm3 Hgb 10.0 L (12.5-18.0) gm/dl Hct 31.5 L (42-50) % MCV 78.4 (78-100) fl MCH 24.9 L (26-32) pg MCHC 31.7 L (32-36) g/dl RDW 16.8 H (11.5-14.0) % Plt Count 291 (150-450) K/mm3 MPV 10.0 (7.5-11.0) fl Sodium 140 (137-145) mmol/L Potassium 3.5 (3.5-5.1) mmol/L Chloride 107 (98-107) mmol/L Carbon Dioxide 26 (22-30) mmol/L Anion Gap 10.5 (5-15) MEQ/L BUN 5 L (9-20) mg/dL Creatinine 0.80 (0.66-1.25) mg/dL Estimated GFR > 60.0 ML/MIN Glucose 92 (74-106) mg/dL Calcium 8.8 (8.4-10.2) mg/dL Micro Results-Entire Visit: Microbiology 09/08/19 22:35 Blood Culture - Preliminary Blood NO GROWTH TO DATE 09/08/19 20:20 Blood Culture - Preliminary Blood NO GROWTH TO DATE - Procedures and Test Procedures and Tests throughout Hospitalization: Therapy Orders & Screens 09/09/19 09:25 Oxygen Nasal Cannula 2 lpm Comment: Diagnosis: PNEUMONIA Respiratory Therapy Assessment DAILY Comment: Diagnosis: PNEUMONIA 09/09/19 09:30 Peak Expiratory Flow Rate ONCE Comment: Reason For Exam: Diagnosis: PNEUMONIA 09/09/19 09:31 Respiratory MDI QID Comment: Diagnosis: PNEUMONIA 09/09/19 09:32 Respiratory MDI BID Comment: Diagnosis: PNEUMONIA Discharge Exam General Appearance: no apparent distress, alert Neurologic Exam: oriented x 3, cooperative Eye Exam: eyes nml inspection Ears, Nose, Throat Exam: moist mucous membranes Neck Exam: normal inspection Respiratory Exam: normal breath sounds, lungs clear, rhonchi (faint RLL), other (midline chest scars as usual), No crackles/rales, No wheezing Cardiovascular Exam: regular rate/rhythm, normal heart sounds, No murmur Gastrointestinal/Abdomen Exam: soft, No normal bowel sounds (hypoactive but present), No tenderness, No distention, No mass, No guarding, No rebound Back Exam: normal inspection, No rash Skin Exam: normal color, warm, dry, No rash Final Diagnosis/Problem List - Final Discharge Diagnosis/Problem (1) Aspiration pneumonia Current Visit: Yes Status: Acute Assessment & Plan: Much improved. Home on po clindamycin. RTC MARKIE for any increased SOB, cough, or fever. See me in 1 wk. 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 Code(s): K22.2 - ESOPHAGEAL OBSTRUCTION - Discharge Disposition: Home, Self-Care Condition: Good Prescriptions: New Clindamycin HCl 300 mg PO TID #21 capsule Famotidine [Pepcid] 20 mg PO QHS #30 tablet Continue Nitroglycerin 0.4 mg (Ed) [Nitrostat 0.4 MG (ED)] 0.4 mg PO Q5MIN PRN MR X 3 PRN PRN Reason: Chest Pain Mirtazapine 45 mg PO HS Hydrocodone/Acetaminophen [Hydrocodone-Acetamin 10-325 mg] 1 tab PO Q6H PRN PRN PRN Reason: Pain Aspirin 81 mg PO DAILY Tizanidine HCl 4 mg [Zanaflex 4 MG] 4 mg PO QID Quetiapine Fumarate [Seroquel] 100 mg PO BID Suvorexant [Belsomra] 20 mg PO HS PRN PRN PRN Reason: Insomnia Omeprazole 20 mg PO DAILY Budesonide/Formoterol Fumarate [Symbicort 80-4.5 Mcg Inhaler] 2 puff IH BID Ipratropium/Albuterol Sulfate [Combivent Inhaler] 1 puff IH QID Venlafaxine HCl [Venlafaxine HCl ER] 225 mg PO DAILY Additional Instructions: While on antibiotics, eat yogurt daily and/or take a probiotic daily. Some mild diarrhea can be normal with antibiotics, but for any persistent or severe diarrhea, call the doctor's office right away. Follow up with: ANABELLE BEAR [Primary Care Provider] - 1 Week
[2019-09-11] MEDS: Effexor XR 75 MG PO SCH (08:38)
[2019-09-11] MEDS: Protonix 40MG Tablet PO SCH (08:39)
[2019-09-11] MEDS: Seroquel 100 MG PO SCH (08:39)
[2019-09-11] MEDS: ECOTRIN 81 MG PO SCH (08:39)
[2019-09-11] MEDS: Pepcid 20 MG VIAL IV SCH (08:39)
--- NOTE | 2019-09-11 09:58 | HP ---
CHIEF COMPLAINT: Acid reflux and possible pneumonia. HISTORY OF PRESENT ILLNESS: The patient is a 59 year-old white male patient who woke up with having trouble with drainage down the back of his throat. He felt like he might have aspirated on something. The patient has a history of having esophageal problems and has a stent in his esophagus. He has a G-tube in which he has had for the last three years. He had it recently replaced last month. It feels like it might be plugged up. He reports he could not use it as he was having acid reflux and he could not use his nebulizer treatment due to the above problems as well. PAST MEDICAL/SURGICAL HISTORY: Otherwise significant for partial rib resection as well as esophageal stents. He had another procedure done to his lung as well which he is a little vague about what exactly happened. HOME MEDICATIONS: Included aspirin 81 mg a day, Symbicort inhaler, hydrocodone 10/325 every four hours PRN for pain, Combivent inhaler, mirtazapine for sleep, nitroglycerin PRN, omeprazole 20 mg a day, Seroquel 100 mg b.i.d., Belsomra 20 mg for sleep, Zanaflex 4 mg four times a day, Venlafaxine 225 mg daily. ALLERGIES: PENICILLIN. ACETAMINOPHEN. CODEINE. MORPHINE. NAPROXEN. OXYCODONE. THE PATIENT DOES USE NORCO 10/325 MG WHICH HAS ACETAMINOPHEN IN IT. PHYSICAL EXAMINATION: Vital signs on admission showed temperature to be afebrile. His pulse was 97, respiratory rate 18, blood pressure 140/102. O2 saturations 97%. HEENT: Normocephalic, atraumatic. Pupils equal round reactive to light. Extraocular movements intact. Oropharynx is somewhat dry. NECK: Supple without lymphadenopathy, thyromegaly or JVD. CHEST: Revealed diminished air movement in the right side. ABDOMEN: There is significant scarring present over his midline abdomen and chest. He has a G-tube on the left side upper quadrant with material in it. No palpable masses were felt. EXTREMITIES: Without cyanosis, clubbing or edema. NEUROLOGIC: The patient is alert and oriented x3 with no focal deficits noted. LAB DATA AND TESTS: Chest x-ray showed pneumonia. His lactic acid was 2.6 on admission. His sugar was 132, BUN 8, creatinine 0.77. Electrolytes were essentially normal. Albumin slightly high at 5.3. Liver enzymes were normal. Amylase and lipase were normal. Anion gap was slightly high at 17.2. His white count was 21,200 with what appeared to be a left shift with 90.8% granulocytes. His hemoglobin was 13.3 and PLT count 413,000. ASSESSMENT: A patient with probable aspiration pneumonia. He received IV antibiotics in the emergency room. He is currently on Levaquin IV and Clindamycin to help cover for possible anaerobic for aspiration. The patient is currently on oxygen which he does not wear at home with improved saturations we will attempt to wean him off oxygen and will continue the IV antibiotics, nebulizer treatments as needed. We will attempt to flush the G-tube which he said is currently plugged but he is able to take most of his nutrition by mouth anyway. There was some discussion that he may have this removed permanently the next time he is up at .
== END 2019-09-11 11:06 | disposition home or self-care (01) ==
LOC: ED 18:38 → MED SURG 09-09 00:03
PROVIDERS: ADMIT Family Medicine; ATTEND Family Medicine
DX: J69.0 Pneumonitis due to inhalation of food and vomit (principal); J44.9 Chronic obstructive pulmonary disease, unspecified; Q79.60 Ehlers-Danlos syndrome, unspecified; K22.2 Esophageal obstruction; Q87.40 Marfan syndrome, unspecified; K21.9 Gastro-esophageal reflux disease without esophagitis; Z79.899 Other long term (current) drug therapy; Z93.1 Gastrostomy status
CPT/HCPCS: 36000; 36415; 71260; 74177; 80048; 80053; 81001; 82150; 83036; 83605; 83690; 85025; 85027; 87040; 94150; 94640; 94760; 96360; 96365; 96367; 96374; 96375; 99285; G0378; J1170; J1956; J2405; A9270-GY

== ENCOUNTER 2020-08-23 06:03 | Emergency (ER) | payer OTHER ==
[2020-08-23 06:21] VITALS: O2SAT 97
--- NOTE | 2020-08-23 06:51 | ERPHSYRPT ---
- History of Present Illness Time Seen by Provider: 08/23/20 06:25 Source: patient Exam Limitations: no limitations Patient Subjective Stated Complaint: pt states his feeding tube came out this moring at approx 0430. states the thinks the balloon popped Triage Nursing Assessment: pt alert and orietned, answers quetions approp. pt ambulatory with steady gait noted. respirations nonlabored with lungs cta. skin warm and dry. stoma to abd, no bleeding noted. bowel sounds present. Physician History: This is a 59-year-old white male who has had a gastric tube for a total of 3 years. However, this morning, the tube that he has had for 6 months accidentally dislodged. It occurred approximately 430 this morning. Patient has no pain and is in no distress. Patient is here to put in a new gastric tube. Timing/Duration: today Severity: mild Modifying Factors: Improves With: nothing Associated Symptoms: denies symptoms Allergies/Adverse Reactions: Penicillins Allergy (Unknown, Verified 09/08/19 19:07) acetaminophen [From Percocet] Adverse Reaction (Verified 09/08/19 19:07) Itching codeine Adverse Reaction (Verified 09/08/19 19:07) Itching morphine Adverse Reaction (Verified 09/08/19 19:07) Itching naproxen Adverse Reaction (Verified 09/08/19 19:07) Rash oxycodone [From Percocet] Adverse Reaction (Verified 09/08/19 19:07) Itching Home Medications: Aspirin 81 mg PO DAILY 10/12/16 [History] Hydrocodone/Acetaminophen [Hydrocodone-Acetamin 10-325 mg] 1 tab PO Q6H PRN PRN 10/12/16 [History] Mirtazapine 45 mg PO HS 10/12/16 [History] Nitroglycerin 0.4 mg (Ed) [Nitrostat 0.4 MG (ED)] 0.4 mg PO Q5MIN PRN MR X 3 PRN 10/12/16 [History] Quetiapine Fumarate [Seroquel] 100 mg PO BID 01/01/18 [History] Budesonide/Formoterol Fumarate [Symbicort 80-4.5 Mcg Inhaler] 2 puff IH BID 11/20/18 [History] Ipratropium/Albuterol Sulfate [Combivent Inhaler] 1 puff IH QID 11/20/18 [History] Omeprazole 20 mg PO DAILY 11/20/18 [History] Suvorexant [Belsomra] 20 mg PO HS PRN PRN 11/20/18 [History] Venlafaxine HCl [Venlafaxine HCl ER] 225 mg PO DAILY 11/20/18 [History] Hx Tetanus, Diphtheria Vaccination/Date Given: Yes Hx Influenza Vaccination/Date Given: Yes Hx Pneumococcal Vaccination/Date Given: Yes Immunizations Up to Date: Yes Travel Risk - International Travel Have you traveled outside of the country in past 3 weeks: No - Coronavirus Screening Are you exhibiting any of the following symptoms?: No Close contact with a COVID-19 positive Pt in past 14-21 Days: No - Review of Systems Constitutional: No Symptoms Eyes: No Symptoms Ears, Nose, & Throat: No Symptoms Respiratory: No Symptoms Cardiac: No Symptoms Abdominal/Gastrointestinal: No Symptoms Genitourinary Symptoms: No Symptoms Musculoskeletal: No Symptoms Skin: No Symptoms Neurological: No Symptoms Psychological: No Symptoms Endocrine: No Symptoms Hematologic/Lymphatic: No Symptoms Immunological/Allergic: No Symptoms All Other Systems: Reviewed and Negative - Past Medical History Pertinent Past Medical History: Yes Neurological History: No Pertinent History ENT History: Cataracts Cardiac History: No Pertinent History Respiratory History: Emphysema Endocrine Medical History: No Pertinent History Musculoskeletal History: Other GI Medical History: Esophageal Disorder, GERD, Hemorrhoids, Hernia History: No Pertinent History Psycho-Social History: Anxiety, Depression Male Reproductive Disorders: No Pertinent History Other Medical History: 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 ,also at this time left clavicle bone removed and place at stomach to wrap remainder of stomach around it. peg tube has been replaced x2. feeding tube - Social History Smoking Status: Former smoker Exposure to second hand smoke: No Drug Use: none Patient Lives Alone: No - Nursing Vital Signs Nursing Vital Signs: Initial Vital Signs Temperature 98.2 F 08/23/20 06:13 Pulse Rate 97 H 08/23/20 06:13 Respiratory Rate 16 08/23/20 06:13 Blood Pressure 134/87 08/23/20 06:13 O2 Sat by Pulse Oximetry 97 08/23/20 06:13 Pain Scale Pain Intensity 3 - Physical Exam General Appearance: no apparent distress, alert Eye Exam: PERRL/EOMI, eyes nml inspection Ears, Nose, Throat Exam: normal ENT inspection, moist mucous membranes Neck Exam: normal inspection, non-tender, supple, full range of motion Respiratory Exam: normal breath sounds, respiratory distress, airway intact, No chest tenderness, No lungs clear Gastrointestinal/Abdomen Exam: soft, normal bowel sounds, other (Gastrostomy site clean with no evidence of infection. There is the proud flesh from the opening site to the well-formed tract.), No tenderness Rectal Exam: not done Extremity Exam: normal inspection, normal range of motion, pelvis stable Neurologic Exam: alert, oriented x 3, cooperative, immigration coordinator II-XII nml as tested, normal mood/affect, nml cerebellar function, nml station & gait, sensation nml Skin Exam: normal color, warm, dry Lymphatic Exam: No adenopathy SpO2 Interpretation: normal SpO2: 97 O2 Delivery: Room Air Procedures - Additional Procedures Additional Procedures: gastric tube replacement - Course Nursing assessment & vital signs reviewed: Yes - Progress Progress: improved Counseled pt/family regarding: diagnosis, need for follow-up - Departure Departure Disposition: Home Clinical Impression: Encounter for feeding tube placement Condition: Stable Critical Care Time: No Referrals: ANABELLE LAO [Primary Care Provider] - Additional Instructions: Continue your feeding tube placement routine care.
[2020-08-23 07:10] VITALS: BP 116/87; PULSE 83
== END 2020-08-23 07:12 | disposition home or self-care (01) ==
LOC: ED 06:03
DX: Z46.59 Encounter for fitting and adjustment of other gastrointestinal appliance and device (principal)
CPT/HCPCS: 99283

== ENCOUNTER 2020-08-23 23:13 | Emergency (ER) | payer OTHER ==
--- NOTE | 2020-08-23 23:45 | ERPHSYRPT ---
- History of Present Illness Time Seen by Provider: 08/23/20 23:41 Source: patient Exam Limitations: no limitations Patient Subjective Stated Complaint: to er c/o feeding tube leaking around insertion site states was in the er this am after original tube had come out had new one placed this am and has been leaking ever since Triage Nursing Assessment: pt arrives p/w/d resp easy and non labored pt has mild leaking of gastric secretions noted around the peg tube on guaze and redness and irritation noted to site pt states when he takes in oral fluids area leaked moderately Physician History: to er c/o feeding tube leaking around insertion site states was in the er this am after original tube had come out had new one placed this am and has been leaking ever since Timing/Duration: today Associated Symptoms: denies symptoms Allergies/Adverse Reactions: Penicillins Allergy (Unknown, Verified 09/08/19 19:07) acetaminophen [From Percocet] Adverse Reaction (Verified 09/08/19 19:07) Itching codeine Adverse Reaction (Verified 09/08/19 19:07) Itching morphine Adverse Reaction (Verified 09/08/19 19:07) Itching naproxen Adverse Reaction (Verified 09/08/19 19:07) Rash oxycodone [From Percocet] Adverse Reaction (Verified 09/08/19 19:07) Itching Home Medications: Aspirin 81 mg PO DAILY 10/12/16 [History] Hydrocodone/Acetaminophen [Hydrocodone-Acetamin 10-325 mg] 1 tab PO Q6H PRN PRN 10/12/16 [History] Mirtazapine 45 mg PO HS 10/12/16 [History] Nitroglycerin 0.4 mg (Ed) [Nitrostat 0.4 MG (ED)] 0.4 mg PO Q5MIN PRN MR X 3 PRN 10/12/16 [History] Quetiapine Fumarate [Seroquel] 100 mg PO BID 01/01/18 [History] Budesonide/Formoterol Fumarate [Symbicort 80-4.5 Mcg Inhaler] 2 puff IH BID 11/20/18 [History] Ipratropium/Albuterol Sulfate [Combivent Inhaler] 1 puff IH QID 11/20/18 [History] Omeprazole 20 mg PO DAILY 11/20/18 [History] Suvorexant [Belsomra] 20 mg PO HS PRN PRN 11/20/18 [History] Venlafaxine HCl [Venlafaxine HCl ER] 225 mg PO DAILY 11/20/18 [History] Hx Tetanus, Diphtheria Vaccination/Date Given: Yes Hx Influenza Vaccination/Date Given: Yes Hx Pneumococcal Vaccination/Date Given: Yes Travel Risk - International Travel Have you traveled outside of the country in past 3 weeks: No (N) If Yes, where;: N - Coronavirus Screening Are you exhibiting any of the following symptoms?: No Close contact with a COVID-19 positive Pt in past 14-21 Days: No - Review of Systems Constitutional: No Fever, No Chills Eyes: No Symptoms Ears, Nose, & Throat: No Symptoms Respiratory: No Cough, No Dyspnea Cardiac: No Chest Pain, No Edema, No Syncope Abdominal/Gastrointestinal: No Abdominal Pain, No Nausea, No Vomiting, No Diarrhea Genitourinary Symptoms: No Dysuria Musculoskeletal: No Back Pain, No Neck Pain Skin: No Rash Neurological: No Dizziness, No Focal Weakness, No Sensory Changes Psychological: No Symptoms Endocrine: No Symptoms All Other Systems: Reviewed and Negative - Past Medical History Pertinent Past Medical History: Yes Neurological History: No Pertinent History ENT History: Cataracts Cardiac History: No Pertinent History Respiratory History: Emphysema Endocrine Medical History: No Pertinent History Musculoskeletal History: Other GI Medical History: Esophageal Disorder, GERD, Hemorrhoids, Hernia History: No Pertinent History Psycho-Social History: Anxiety, Depression Male Reproductive Disorders: No Pertinent History Other Medical History: 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 ,also at this time left clavicle bone removed and place at stomach to wrap remainder of stomach around it. peg tube has been replaced x2. feeding tube - Social History Smoking Status: Former smoker Exposure to second hand smoke: No Drug Use: none Patient Lives Alone: No - Nursing Vital Signs Nursing Vital Signs: Initial Vital Signs Temperature 98.1 F 08/23/20 23:18 Pulse Rate 94 H 08/23/20 23:18 Respiratory Rate 16 08/23/20 23:18 Blood Pressure 138/94 08/23/20 23:18 O2 Sat by Pulse Oximetry 93 L 08/23/20 23:18 Pain Scale Pain Intensity 4 - Physical Exam General Appearance: no apparent distress, alert Eye Exam: PERRL/EOMI, eyes nml inspection Ears, Nose, Throat Exam: normal ENT inspection, TMs normal, pharynx normal, moist mucous membranes Neck Exam: normal inspection, non-tender, supple, full range of motion Respiratory Exam: normal breath sounds, lungs clear, No respiratory distress Cardiovascular Exam: regular rate/rhythm, normal heart sounds, normal peripheral pulses Gastrointestinal/Abdomen Exam: soft, normal bowel sounds, No tenderness, No mass Back Exam: normal inspection, normal range of motion, No CVA tenderness, No vertebral tenderness Extremity Exam: normal inspection, normal range of motion, pelvis stable Neurologic Exam: alert, oriented x 3, cooperative, normal mood/affect, nml cerebellar function, nml station & gait, sensation nml, No motor deficits Skin Exam: normal color, warm, dry, No rash Lymphatic Exam: No adenopathy SpO2: 93 - Course Nursing assessment & vital signs reviewed: Yes Ordered Tests: Active Orders 24 hr Category Date Time Status Dressing Care ROUTINE Care 08/23/20 23:41 Active - Progress Progress: unchanged Counseled pt/family regarding: diagnosis, need for follow-up (call [facility] in AM ) - Departure Departure Disposition: Home Clinical Impression: Encounter for feeding tube placement Feeding tube dysfunction Qualifiers: Encounter type: initial encounter Qualified Code(s): T85.598A - Other mechanical complication of other gastrointestinal prosthetic devices, implants and grafts, initial encounter Condition: Stable Critical Care Time: No Referrals: ANABELLE LAO [Primary Care Provider] - Additional Instructions: Call [facility] IN AM for further management of G tube. Use thick dressing to absorb leakage
[2020-08-23 23:59] VITALS: BP 141/81; PULSE 88; O2SAT 94
== END 2020-08-24 00:02 | disposition home or self-care (01) ==
LOC: ED 23:13
DX: T85.598A Other mechanical complication of other gastrointestinal prosthetic devices, implants and grafts, initial encounter (principal)
CPT/HCPCS: 99283

== ENCOUNTER 2020-11-02 21:05 | Emergency (ER) | payer OTHER ==
[2020-11-02] MEDS ORDERED: Pepcid 20 MG VIAL IV ONE ×2 (21:22→21:38)
[2020-11-02] MEDS ORDERED: Sodium Chloride 0.9% 1000 ML 1,000 ML IV STA (21:22)
[2020-11-02] MEDS ORDERED: Sodium Chloride 0.9% 1000 ML 1,000 ML ONE (21:38)
[2020-11-02 21:50] LABS: Hematocrit 47.4 % (42-50); Hemoglobin 15.6 gm/dl (12.5-18.0); Mean Cell Volume 88.6 fl (78-100); Mean Corpuscular Hemoglobin 29.2 pg (26-32); Mean Corpuscular Hgb Concent. 32.9 g/dl (32-36); Mean Platelet Volume 10.6 fl (7.5-11.0); Platelet Count 409 K/mm3 (150-450); Red Blood Count 5.35 M/mm3 (4.1-5.6); Red Cell Distribution Width 15.7 % (11.5-14.0)
[2020-11-02 21:52] LABS: White Blood Count 30.1 K/mm3 (4.0-10.5)
[2020-11-02] MEDS ORDERED: ROCEPHIN 1 Gm-D5w 50 ml Bag** 1 G/50 ML IVPB IV STA (22:07)
[2020-11-02 22:09] LABS: ALBUMIN 4.9 g/dL (3.5-5.0); ALKALINE PHOSPHATASE 117 U/L (38-126); ANION GAP 18.5 MEQ/L (5-15); BLOOD UREA NITROGEN 10 mg/dL (9-20); CHLORIDE 100 mmol/L (98-107); Calcium 9.9 mg/dL (8.4-10.2); Carbon Dioxide 25 mmol/L (22-30); EST GLOMERULAR FILTRATION RATE > 60.0 ML/MIN; Glucose 181 mg/dL (74-106); Potassium 4.1 mmol/L (3.5-5.1); SGOT/AST 22 U/L (17-59); SGPT/ALT 17 U/L (0-50); SODIUM 139 mmol/L (137-145); TROPONIN < 0.012 ng/mL (0.000-0.034); Total Protein 8.3 g/dL (6.3-8.2)
--- NOTE | 2020-11-02 22:12 | ERPHSYRPT ---
- History of Present Illness Time Seen by Provider: 11/02/20 22:10 Historian: patient Exam Limitations: no limitations Patient Subjective Stated Complaint: "I have real bad acid reflux." Triage Nursing Assessment: Patient reported that he had chest pain described as acid reflux that started this morning. Patient reported histroy of esophageal hernia and surgery. Pain described as burning and radiating to the jaw. Reported use of antacids with mild relief. Denied headache, dizziness, shortness of breath. Reported mild productive cough. Pupils 3mm brisk direct and consensual response. neck supple non-tender. Symmetrical chest expansion. Heart tones regular clear. Lungs clear with adequate airflow. Abdomen soft non-tender with bowel sounds present. No noted dependent edema. Physician History: "I have real bad acid reflux."since 5.30 AM Patient reported that he had chest pain described as acid reflux that started this morning. Patient reported histroy of esophageal hernia and surgery. Pain described as burning and radiating to the jaw. Reported use of antacids with mild relief. Denied headache, dizziness, shortness of breath. Reported mild productive cough. Timing/Duration: today Activities at Onset: none Quality: burning Location: epigastric Chest Pain Radiation: no radiation Severity of Pain-Max: mild Severity of Pain-Current: mild Modifying Factors: Improves With: nothing Associated Symptoms: cough Prior Chest Pain/Cardiac Workup: no prior chest pain Nitro Today/Relief: no nitro taken today Aspirin Treatment Today: no aspirin today Allergies/Adverse Reactions: Penicillins Allergy (Unknown, Verified 11/02/20 21:19) acetaminophen [From Percocet] Adverse Reaction (Verified 11/02/20 21:19) Itching codeine Adverse Reaction (Verified 11/02/20 21:19) Itching morphine Adverse Reaction (Verified 11/02/20 21:19) Itching naproxen Adverse Reaction (Verified 11/02/20 21:19) Rash oxycodone [From Percocet] Adverse Reaction (Verified 11/02/20 21:19) Itching Home Medications: Aspirin 81 mg PO DAILY 10/12/16 [History] Hydrocodone/Acetaminophen [Hydrocodone-Acetamin 10-325 mg] 1 tab PO Q6H PRN PRN 10/12/16 [History] Mirtazapine 45 mg PO HS 10/12/16 [History] Nitroglycerin 0.4 mg (Ed) [Nitrostat 0.4 MG (ED)] 0.4 mg PO Q5MIN PRN MR X 3 PRN 10/12/16 [History] Quetiapine Fumarate [Seroquel] 100 mg PO BID 01/01/18 [History] Budesonide/Formoterol Fumarate [Symbicort 80-4.5 Mcg Inhaler] 2 puff IH BID 11/20/18 [History] Ipratropium/Albuterol Sulfate [Combivent Inhaler] 1 puff IH QID 11/20/18 [History] Omeprazole 20 mg PO DAILY 11/20/18 [History] Suvorexant [Belsomra] 20 mg PO HS PRN PRN 11/20/18 [History] Venlafaxine HCl [Venlafaxine HCl ER] 225 mg PO DAILY 11/20/18 [History] Hx Tetanus, Diphtheria Vaccination/Date Given: Yes Hx Influenza Vaccination/Date Given: Yes Hx Pneumococcal Vaccination/Date Given: Yes Travel Risk - International Travel Have you traveled outside of the country in past 3 weeks: No - Coronavirus Screening Are you exhibiting any of the following symptoms?: Yes Symptoms: Cough: New Onset Close contact with a COVID-19 positive Pt in past 14-21 Days: No - Review of Systems Constitutional: No Fever, No Chills Eyes: No Symptoms Ears, Nose, & Throat: No Symptoms Respiratory: No Cough, No Dyspnea Cardiac: No Chest Pain, No Edema, No Syncope Abdominal/Gastrointestinal: Dysphagia, No Abdominal Pain, No Nausea, No Vomiting, No Diarrhea Genitourinary Symptoms: No Dysuria Musculoskeletal: No Back Pain, No Neck Pain Skin: No Rash Neurological: No Dizziness, No Focal Weakness, No Sensory Changes Psychological: No Symptoms Endocrine: No Symptoms All Other Systems: Reviewed and Negative - Past Medical History Pertinent Past Medical History: Yes Neurological History: No Pertinent History ENT History: Cataracts Cardiac History: No Pertinent History Respiratory History: Emphysema Endocrine Medical History: No Pertinent History Musculoskeletal History: Other GI Medical History: Esophageal Disorder, GERD, Hemorrhoids, Hernia History: No Pertinent History Psycho-Social History: Anxiety, Depression Male Reproductive Disorders: No Pertinent History Other Medical History: 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 ,also at this time left clavicle bone removed and place at stomach to wrap remainder of stomach around it. peg tube has been replaced x2. feeding tube - Social History Smoking Status: Former smoker Exposure to second hand smoke: No Drug Use: none Patient Lives Alone: No - Nursing Vital Signs Nursing Vital Signs: Initial Vital Signs Pulse Rate 116 H 11/02/20 21:06 Respiratory Rate 20 11/02/20 21:06 Blood Pressure 118/87 11/02/20 21:06 O2 Sat by Pulse Oximetry 100 11/02/20 21:06 Pain Scale Pain Intensity 5 - Physical Exam General Appearance: no apparent distress, alert Eye Exam: PERRL/EOMI, eyes nml inspection Ears, Nose, Throat Exam: normal ENT inspection, moist mucous membranes Neck Exam: normal inspection, non-tender, supple, full range of motion Respiratory Exam: normal breath sounds, lungs clear, No respiratory distress Cardiovascular Exam: regular rate/rhythm, normal heart sounds Gastrointestinal/Abdomen Exam: soft, No tenderness, No mass Back Exam: normal inspection, No CVA tenderness, No vertebral tenderness Extremity Exam: normal inspection, normal range of motion Neurologic Exam: alert, oriented x 3, cooperative, normal mood/affect, sensation nml, No motor deficits Skin Exam: normal color, warm, dry SpO2: 100 - Course Nursing assessment & vital signs reviewed: Yes - Radiology Exams Chest X-ray Interpretation: Reviewed by me, Negative, No Pneumonia, No Pneumothorax Ordered Tests: Active Orders 24 hr Category Date Time Status Bilingual Hr Generalist STAT Care 11/02/20 21:23 Active EKG-ER Only STAT Care 11/02/20 21:22 Active IV Insertion STAT Care 11/02/20 21:36 Active CHEST 1 VIEW (PORTABLE) Stat Exams 11/02/20 21:22 Taken CBC W DIFF Stat Lab 11/02/20 21:44 Completed CMP Stat Lab 11/02/20 21:44 Completed Manual Differential NC Stat Lab 11/02/20 21:44 Completed TROPONIN Stat Lab 11/02/20 21:44 Completed Medication Summary Generic Name Dose Route Start Last Admin Trade Name Stanton PRN Reason Stop Dose Admin Ceftriaxone Sodium/Dextrose 1 g in 50 mls @ 100 mls/hr 11/02/20 22:07 Rocephin 1 Gm-D5w 50 Ml Bag IV 11/02/20 22:36 STAT STA Discontinued Medications Generic Name Dose Route Start Last Admin Trade Name Stanton PRN Reason Stop Dose Admin Famotidine 20 mg 11/02/20 21:22 11/02/20 21:40 Pepcid 20 Mg Vial IV 11/02/20 21:23 20 mg STAT ONE Administration Famotidine Confirm 11/02/20 21:38 Pepcid 20 Mg Vial Administered 11/02/20 21:39 Dose 20 mg IV .STK-MED ONE Sodium Chloride 1,000 mls @ 999 mls/hr 11/02/20 21:22 11/02/20 21:40 Sodium Chloride 0.9% 1000 Ml IV 11/02/20 22:22 999 mls/hr .Q1H1M STA Administration Sodium Chloride Confirm 11/02/20 21:38 Sodium Chloride 0.9% 1000 Ml Administered 11/02/20 21:39 Dose 1,000 mls @ ud .ROUTE .STK-MED ONE Lab/Rad Data: Laboratory Result Diagrams 11/02/20 21:44 11/02/20 21:44 Laboratory Results 11/02/20 11/02/20 Range/Units 21:44 21:44 WBC 30.1 H* (4.0-10.5) K/mm3 RBC 5.35 (4.1-5.6) M/mm3 Hgb 15.6 (12.5-18.0) gm/dl Hct 47.4 (42-50) % MCV 88.6 (78-100) fl MCH 29.2 (26-32) pg MCHC 32.9 (32-36) g/dl RDW 15.7 H (11.5-14.0) % Plt Count 409 (150-450) K/mm3 MPV 10.6 (7.5-11.0) fl Segmented Neutrophils 85 H (36.-66.) % Band Neutrophils 6 H (0.0-2.0) % Lymphocytes (Manual) 5 L (24-44) % Monocytes (Manual) 3 (0.0-12.0) % Metamyelocytes 1 % Platelet Estimate NORMAL (NORMAL) RBC Morphology NORMAL Sodium 139 (137-145) mmol/L Potassium 4.1 (3.5-5.1) mmol/L Chloride 100 (98-107) mmol/L Carbon Dioxide 25 (22-30) mmol/L Anion Gap 18.5 H (5-15) MEQ/L BUN 10 (9-20) mg/dL Creatinine 0.80 (0.66-1.25) mg/dL Estimated GFR > 60.0 ML/MIN Glucose 181 H (74-106) mg/dL Calcium 9.9 (8.4-10.2) mg/dL Total Bilirubin 0.80 (0.2-1.3) mg/dL AST 22 (17-59) U/L ALT 17 (0-50) U/L Alkaline Phosphatase 117 (38-126) U/L Troponin I < 0.012 (0.000-0.034) ng/mL Serum Total Protein 8.3 H (6.3-8.2) g/dL Albumin 4.9 (3.5-5.0) g/dL - Progress Progress: improved Air Movement: good Blood Culture(s) Obtained: No Antibiotics given: Yes Counseled pt/family regarding: lab results, diagnosis, need for follow-up, rad results - Departure Departure Disposition: Home Clinical Impression: COPD (chronic obstructive pulmonary disease) Qualifiers: COPD type: chronic bronchitis Chronic bronchitis type: simple Qualified Code(s): J41.0 - Simple chronic bronchitis Aspiration pneumonia Qualifiers: Aspiration pneumonia type: due to gastric secretions Laterality: unspecified laterality Lung location: unspecified part of lung Qualified Code(s): J69.0 - Pneumonitis due to inhalation of food and vomit Condition: Stable Critical Care Time: No Referrals: ANABELLE LAO [Primary Care Provider] - Instructions: Chronic Obstructive Pulmonary Disease, Chest Pain (DC), Acute Bronchitis, Pneumonia, Adult (DC) Additional Instructions: Discharge/Care Plan SARAH DUBOIS was seen on 11/02/20 in the Emergency Room. The patient was counseled regarding Diagnosis,Lab results, Imaging studies, need for follow up and when to return to the Emergency Room. Prescriptions given: Discharge Note I have spoken with the patient and/or caregivers. I have explained the patient's condition, diagnosis and treatment plan based on the information available to me at this time. I have answered the patient's and/or caregiver's questions and addressed any concerns. The patient and/or caregivers have as good understanding of the patient's diagnosis, condition and treatment plan as can be expected at this point. The vital signs have been stable. The patient's condition is stable and appropriate for discharge from the emergency department. The patient will pursue further outpatient evaluation with the primary care physician or other designated or consulting physician as outlined in the discharge instructions. The patient and/or caregivers are agreeable to this plan of care and follow-up instructions have been explained in detail. The patient and/or caregivers have received these instruction. The patient/and or caregivers are aware that any significant change in condition or worsening of symptoms should prompt an immediate return to this or the closest emergency department or call 911. SARAH DUBOIS was seen on 11/02/20 n the Emergency Room. At that time you were treated for an emergent condition, during your visit Laboratory, Radiology and/or other procedures may have been ordered. It is very important that you follow-up with your Primary Care Physician ANABELLE LAO within the next 24-48 hours to review your Emergency Room visit and the final results of testing that was ordered. Some test results such as Urine Cultures, Blood Cultures, and ot her cultures if ordered will not be finalized for 24-48 hours. If you do not have a Primary Care Provider please call the medical records department at [phone] ext [phone] to obtain a copy of your results or you may sign into our patient portal to obtain these results by visiting us @ [email or web address] and completing the following steps: 1. Click on the Patient Portal link 2. Click the Patient Self Enrollment Link to complete the enrollment form and entering your 3. Once the enrollment form is completed you will receive an email with a temporary ID and password at the email address you provided. 4. Next choose a user name and password. Your user name must be at least 4 characters long and your password must be at least 4 characters long. 5. Choose a security question from the list and provide your answer to the question. If you already have signed into the Health Portal you may access your Health Care Information 08/03 by the following steps: 1. Login to our website @ [email or web address] 2. Enter your original user name and password. FAQS [facility] Health Portal is an online tool that contains your Lab Results, Radiology Reports, Visit History, Discharge Instructions and Health Summary Lab and Radiology Results will not be available for 72 hours on the portal. The Portal is a secure site, passwords are encryted and URLs are re-written so they cannot be copied and pasted. You and authorized family members are the only ones who can access your Portal. Also there is a timeout feature that protects your information if you leave the Portal page open. If you have technical difficulty please use the Contact Us link on the page this will allow you to submit any questions you have regarding the Portal or you may contact the Medical Record Department at [phone] ext [phone]. Prescriptions: Cephalexin 250 mg/5 ml Susp [Keflex 250 mg/5 ml Susp] 500 mg PO QID 10 Days #400 bottle
[2020-11-02 22:13] LABS: BAND 6 % (0.0-2.0); Lymphocytes 5 % (24-44); Metamyelocyte 1 %; Monocyte 3 % (0.0-12.0); Neutrophils 85 % (36.-66.); Platelet Estimate NORMAL (NORMAL); Total Cells Counted 100
[2020-11-02] MEDS ORDERED: ROCEPHIN 1 Gm-D5w 50 ml Bag** 1 G/50 ML IVPB IV ONE (22:41)
[2020-11-02 23:34] VITALS: BP 119/86; PULSE 88; O2SAT 96
--- NOTE | 2020-11-03 08:09 | XRAY ---
Indication: Chest pain. Comparison: November 19, 2018. Portable chest demonstrates interval right upper lobe clearing with now fibrosis/scarring and pleural thickening versus atelectasis. Remaining lungs again demonstrates bullous emphysema and left upper lobe suture material. No focal infiltrate, consolidation, or large effusion. Heart is not enlarged with stable esophageal stent. Bony thorax intact. Impression: Nonacute chest with chronic features.
== END 2020-11-02 23:48 | disposition home or self-care (01) ==
LOC: ED 21:05
DX: J41.0 Simple chronic bronchitis (principal); J69.0 Pneumonitis due to inhalation of food and vomit
CPT/HCPCS: 36000; 36415; 71045; 80053; 84484; 85025; 93005; 93041; 96360; 96374; 99284; J0696

== ENCOUNTER 2020-11-30 21:50 | Emergency (ER) | payer OTHER ==
--- NOTE | 2020-11-30 21:52 | ERPHSYRPT ---
- History of Present Illness Time Seen by Provider: 11/30/20 21:52 Source: patient Exam Limitations: no limitations Physician History: This is a 60-year-old white male who has a permanent gastric feeding tube in place. Relatively recently, the patient underwent a colonoscopy and was laying on the left side causing the feeding tube to be somewhat bent and retracting in and out. Yesterday he noticed increased redness and pain in the area and was concerned that there might have been "pus" from the exit site at the level of the skin. He has had no fevers. He said no nausea vomiting or diarrhea. A few weeks ago he was taking Keflex for some localized redness around the feeding tube exit site. Timing/Duration: yesterday Severity: mild Associated Symptoms: denies symptoms Allergies/Adverse Reactions: Penicillins Allergy (Unknown, Verified 11/30/20 22:03) acetaminophen [From Percocet] Adverse Reaction (Verified 11/30/20 22:03) Itching codeine Adverse Reaction (Verified 11/30/20 22:03) Itching morphine Adverse Reaction (Verified 11/30/20 22:03) Itching naproxen Adverse Reaction (Verified 11/30/20 22:03) Rash oxycodone [From Percocet] Adverse Reaction (Verified 11/30/20 22:03) Itching Home Medications: Aspirin 81 mg PO DAILY 10/12/16 [History] Hydrocodone/Acetaminophen [Hydrocodone-Acetamin 10-325 mg] 1 tab PO Q6H PRN PRN 10/12/16 [History] Mirtazapine 45 mg PO HS 10/12/16 [History] Nitroglycerin 0.4 mg (Ed) [Nitrostat 0.4 MG (ED)] 0.4 mg PO Q5MIN PRN MR X 3 PRN 10/12/16 [History] Quetiapine Fumarate [Seroquel] 100 mg PO BID 01/01/18 [History] Budesonide/Formoterol Fumarate [Symbicort 80-4.5 Mcg Inhaler] 2 puff IH BID 11/20/18 [History] Ipratropium/Albuterol Sulfate [Combivent Inhaler] 1 puff IH QID 11/20/18 [History] Omeprazole 20 mg PO DAILY 11/20/18 [History] Suvorexant [Belsomra] 20 mg PO HS PRN PRN 11/20/18 [History] Venlafaxine HCl [Venlafaxine HCl ER] 225 mg PO DAILY 11/20/18 [History] Hx Tetanus, Diphtheria Vaccination/Date Given: Yes Hx Influenza Vaccination/Date Given: Yes Hx Pneumococcal Vaccination/Date Given: Yes Travel Risk - International Travel Have you traveled outside of the country in past 3 weeks: No - Coronavirus Screening Are you exhibiting any of the following symptoms?: No Close contact with a COVID-19 positive Pt in past 14-21 Days: No - Vaccine Status Have you recieved a Covid-19 vaccination: No - Review of Systems Constitutional: No Symptoms Eyes: No Symptoms Ears, Nose, & Throat: No Symptoms Respiratory: No Symptoms Cardiac: No Symptoms Abdominal/Gastrointestinal: No Symptoms Genitourinary Symptoms: No Symptoms Musculoskeletal: No Symptoms Skin: Cellulitis, Other (Localized redness from the feeding tube exit site. No obvious pus) Neurological: No Symptoms Psychological: No Symptoms Endocrine: No Symptoms Hematologic/Lymphatic: No Symptoms Immunological/Allergic: No Symptoms, Pollen Allergy All Other Systems: Reviewed and Negative - Past Medical History Pertinent Past Medical History: Yes Neurological History: No Pertinent History ENT History: Cataracts Cardiac History: No Pertinent History Respiratory History: Emphysema Endocrine Medical History: No Pertinent History Musculoskeletal History: Other GI Medical History: Esophageal Disorder, GERD, Hemorrhoids, Hernia History: No Pertinent History Psycho-Social History: Anxiety, Depression Male Reproductive Disorders: No Pertinent History Other Medical History: 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 ,also at this time left clavicle bone removed and place at stomach to wrap remainder of stomach around it. peg tube has been replaced x2. feeding tube - Social History Smoking Status: Former smoker Exposure to second hand smoke: No Drug Use: none Patient Lives Alone: No - Nursing Vital Signs Nursing Vital Signs: Initial Vital Signs Temperature 98.4 F 11/30/20 22:03 Pulse Rate 94 H 11/30/20 22:03 Respiratory Rate 22 11/30/20 22:03 Blood Pressure 134/97 11/30/20 22:03 O2 Sat by Pulse Oximetry 96 11/30/20 22:03 Pain Scale Pain Intensity 3 - Physical Exam General Appearance: no apparent distress, alert, anxiety Eye Exam: PERRL/EOMI, eyes nml inspection Ears, Nose, Throat Exam: normal ENT inspection, moist mucous membranes Neck Exam: normal inspection, non-tender, supple, full range of motion Respiratory Exam: normal breath sounds, lungs clear, airway intact, No chest tenderness, No respiratory distress Cardiovascular Exam: regular rate/rhythm, normal heart sounds, normal peripheral pulses Gastrointestinal/Abdomen Exam: soft, normal bowel sounds, tenderness (Mild tenderness and redness around the exit site of the feeding tube. There is mild fibrinous exudate present but no pus.) Rectal Exam: not done Back Exam: normal inspection, normal range of motion, No CVA tenderness Extremity Exam: normal inspection, normal range of motion, pelvis stable Neurologic Exam: alert, oriented x 3, cooperative, cable supervisor II-XII nml as tested, normal mood/affect, nml cerebellar function, nml station & gait, sensation nml Skin Exam: normal color, warm, dry, other (Is localized around the feeding tube site.) Lymphatic Exam: No adenopathy SpO2 Interpretation: normal O2 Delivery: Room Air - Course Nursing assessment & vital signs reviewed: Yes Ordered Tests: Medication Summary Discontinued Medications Generic Name Dose Route Start Last Admin Trade Name Stanton PRN Reason Stop Dose Admin Levofloxacin 500 mg 11/30/20 22:25 Levofloxacin 500 Mg Tablet PO 11/30/20 22:26 STAT ONE Levofloxacin Confirm 11/30/20 22:29 Levofloxacin 500 Mg Tablet Administered 11/30/20 22:30 Dose 1,000 mg .ROUTE .STK-MED ONE - Progress Progress: unchanged Counseled pt/family regarding: diagnosis, need for follow-up - Departure Departure Disposition: Home Clinical Impression: Cellulitis Condition: Stable Critical Care Time: No Referrals: ANABELLE LAO [Primary Care Provider] - Additional Instructions: Keep the site clean with soap and water and other feeding tube care instructions. Take antibiotics as prescribed. Prescriptions: Levofloxacin [Levaquin 500 MG Tablet] 500 mg PO DAILY #7 tablet
[2020-11-30 22:22] VITALS: O2SAT 95
[2020-11-30] MEDS ORDERED: Levofloxacin 500 MG Tablet PO ONE (22:25)
[2020-11-30] MEDS ORDERED: Levofloxacin 500 MG Tablet ONE (22:29)
[2020-11-30 22:46] VITALS: BP 120/84; PULSE 79
== END 2020-11-30 22:47 | disposition home or self-care (01) ==
LOC: ED 21:50
DX: L03.311 Cellulitis of abdominal wall (principal)
CPT/HCPCS: 99283; A9270-GY

== ENCOUNTER 2020-12-01 08:53 | Emergency (ER) | payer OTHER ==
[2020-12-01 09:22] VITALS: BP 127/93; PULSE 97; O2SAT 96
--- NOTE | 2020-12-01 09:52 | ERPHSYRPT ---
- History of Present Illness Time Seen by Provider: 12/01/20 09:15 Source: patient Exam Limitations: no limitations Patient Subjective Stated Complaint: pt reports his feeding tube became dislodged this morning around 0800. pt states he was seen at this ED last evening r/t an infected feeding tube site/cellulitis. pt states he was given antibiotics and d/c home. pt reports he was unable to take his morning medications. pt complains of pain to insertion site. Triage Nursing Assessment: pt is aox3, pupils perrl, afebrile, resps easy and non labored, cap refill < 3 seconds, radial pulses strong and equal, pt abd soft, tender to the LUQ, pt with redness and swelling noted around feeding tube insertion site, tube is not in place at this time. redness also noted to the lateral left rib area. no drainage noted at this time. Physician History: Patient is a 60-year-old white male who presents with dislodgment of a gastric feeding tube. He was seen in the ER last evening because of some purulent drainage around the site of the tube placement some erythema and cellulitis he was started on Levaquin by Dr. Adam. About 8 AM this morning the tube did become dislodged apparently the balloon collapsed. Timing/Duration: today Severity: mild Modifying Factors: Improves With: nothing Associated Symptoms: denies symptoms Allergies/Adverse Reactions: Penicillins Allergy (Unknown, Verified 12/01/20 09:22) acetaminophen [From Percocet] Adverse Reaction (Verified 12/01/20 09:22) Itching codeine Adverse Reaction (Verified 12/01/20 09:22) Itching morphine Adverse Reaction (Verified 12/01/20 09:22) Itching naproxen Adverse Reaction (Verified 12/01/20 09:22) Rash oxycodone [From Percocet] Adverse Reaction (Verified 12/01/20 09:22) Itching Home Medications: Aspirin 81 mg PO DAILY 10/12/16 [History] Hydrocodone/Acetaminophen [Hydrocodone-Acetamin 10-325 mg] 1 tab PO Q6H PRN PRN 10/12/16 [History] Mirtazapine 45 mg PO HS 10/12/16 [History] Nitroglycerin 0.4 mg (Ed) [Nitrostat 0.4 MG (ED)] 0.4 mg PO Q5MIN PRN MR X 3 PRN 10/12/16 [History] Quetiapine Fumarate [Seroquel] 100 mg PO BID 01/01/18 [History] Budesonide/Formoterol Fumarate [Symbicort 80-4.5 Mcg Inhaler] 2 puff IH BID 11/20/18 [History] Ipratropium/Albuterol Sulfate [Combivent Inhaler] 1 puff IH QID 11/20/18 [History] Omeprazole 20 mg PO DAILY 11/20/18 [History] Suvorexant [Belsomra] 20 mg PO HS PRN PRN 11/20/18 [History] Venlafaxine HCl [Venlafaxine HCl ER] 225 mg PO DAILY 11/20/18 [History] Hx Tetanus, Diphtheria Vaccination/Date Given: Yes Hx Influenza Vaccination/Date Given: Yes Hx Pneumococcal Vaccination/Date Given: Yes Immunizations Up to Date: Yes Travel Risk - International Travel Have you traveled outside of the country in past 3 weeks: No - Coronavirus Screening Are you exhibiting any of the following symptoms?: No Close contact with a COVID-19 positive Pt in past 14-21 Days: No - Vaccine Status Have you recieved a Covid-19 vaccination: No - Review of Systems Constitutional: No Fever, No Chills Eyes: No Symptoms Ears, Nose, & Throat: No Symptoms Respiratory: No Cough, No Dyspnea Cardiac: No Chest Pain, No Edema, No Syncope Abdominal/Gastrointestinal: No Abdominal Pain, No Nausea, No Vomiting, No Diarrhea Genitourinary Symptoms: No Dysuria Musculoskeletal: No Back Pain, No Neck Pain Skin: No Rash Neurological: No Dizziness, No Focal Weakness, No Sensory Changes Psychological: No Symptoms Endocrine: No Symptoms All Other Systems: Reviewed and Negative - Past Medical History Pertinent Past Medical History: Yes Neurological History: No Pertinent History ENT History: Cataracts Cardiac History: No Pertinent History Respiratory History: Emphysema Endocrine Medical History: No Pertinent History Musculoskeletal History: Other GI Medical History: Esophageal Disorder, GERD, Hemorrhoids, Hernia History: No Pertinent History Psycho-Social History: Anxiety, Depression Male Reproductive Disorders: No Pertinent History Other Medical History: 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 ,also at this time left clavicle bone removed and place at stomach to wrap remainder of stomach around it. peg tube has been replaced x2. feeding tube - Social History Smoking Status: Never smoker Exposure to second hand smoke: No Drug Use: none Patient Lives Alone: No - Nursing Vital Signs Nursing Vital Signs: Initial Vital Signs Temperature 98.4 F 12/01/20 09:07 Pulse Rate 97 H 12/01/20 09:07 Respiratory Rate 20 12/01/20 09:07 Blood Pressure 127/93 12/01/20 09:07 O2 Sat by Pulse Oximetry 96 12/01/20 09:07 Pain Scale Pain Intensity 7 - Physical Exam General Appearance: mild distress, alert Eye Exam: PERRL/EOMI, eyes nml inspection Ears, Nose, Throat Exam: normal ENT inspection, TMs normal, pharynx normal, moist mucous membranes Neck Exam: normal inspection, non-tender, supple, full range of motion Respiratory Exam: normal breath sounds, lungs clear, No respiratory distress Cardiovascular Exam: regular rate/rhythm, normal heart sounds, normal peripheral pulses Gastrointestinal/Abdomen Exam: soft, normal bowel sounds, other (Obvious displacement of the feeding tube from the site on his abdomen.), No tenderness, No mass Rectal Exam: deferred Back Exam: normal inspection, normal range of motion, No CVA tenderness, No vertebral tenderness Extremity Exam: normal inspection, normal range of motion, pelvis stable Neurologic Exam: alert, oriented x 3, cooperative, normal mood/affect, nml cerebellar function, nml station & gait, sensation nml, No motor deficits Skin Exam: normal color, warm, dry, No rash Lymphatic Exam: No adenopathy SpO2: 96 Procedures - Additional Procedures Additional Procedures: gastric tube replacement Progress: The area around the site was cleaned with Betadine a 20 [place] feeding tube was placed without difficulty balloon was inflated with 20 cc of saline. There was gastric contents refluxed into the feeding tube eliminating the need for an x- ray for placement. This procedure was done by the ER physician - Course Nursing assessment & vital signs reviewed: Yes - Progress Progress: improved - Departure Departure Disposition: Home Clinical Impression: Encounter for feeding tube placement, Feeding tube dysfunction Condition: Stable Critical Care Time: No Referrals: ANABELLE LAO [Primary Care Provider] - Instructions: Gastrostomy, Permanent and Temporary (DC)
== END 2020-12-01 10:15 | disposition home or self-care (01) ==
LOC: ED 08:53
DX: Z43.1 Encounter for attention to gastrostomy (principal); R63.3 Feeding difficulties
CPT/HCPCS: 43762; 99283

== ENCOUNTER 2020-12-03 15:52 | Emergency (ER) | payer OTHER ==
--- NOTE | 2020-12-03 16:15 | ERPHSYRPT ---
- History of Present Illness Historian: patient Patient Subjective Stated Complaint: Pt went to Dr. Potter office due to his G tube had moved and was leaking and she wasn't able to fix it Triage Nursing Assessment: Pt presents to the ER with his G tube still in his abdomen but the rubber "seal" is not flush with his skin, states that it leaks when he takes a drink, doesn't appear to be in any distress and is just here to have the tube fixed Physician History: G-tube not functioning. Timing/Duration: today Activities at Onset: rest Quality: other (No pain) Abdominal Pain Onset Location: other (No pain) Severity of Pain-Max: none Severity of Pain-Current: none Modifying Factors: Improves With: nothing Associated Symptoms: denies symptoms Previous symptoms: no prior history Allergies/Adverse Reactions: Penicillins Allergy (Unknown, Verified 12/01/20 09:22) acetaminophen [From Percocet] Adverse Reaction (Verified 12/01/20 09:22) Itching codeine Adverse Reaction (Verified 12/01/20 09:22) Itching morphine Adverse Reaction (Verified 12/01/20 09:22) Itching naproxen Adverse Reaction (Verified 12/01/20 09:22) Rash oxycodone [From Percocet] Adverse Reaction (Verified 12/01/20 09:22) Itching Home Medications: Aspirin 81 mg PO DAILY 10/12/16 [History] Hydrocodone/Acetaminophen [Hydrocodone-Acetamin 10-325 mg] 1 tab PO Q6H PRN PRN 10/12/16 [History] Mirtazapine 45 mg PO HS 10/12/16 [History] Nitroglycerin 0.4 mg (Ed) [Nitrostat 0.4 MG (ED)] 0.4 mg PO Q5MIN PRN MR X 3 PRN 10/12/16 [History] Quetiapine Fumarate [Seroquel] 100 mg PO BID 01/01/18 [History] Budesonide/Formoterol Fumarate [Symbicort 80-4.5 Mcg Inhaler] 2 puff IH BID 11/20/18 [History] Ipratropium/Albuterol Sulfate [Combivent Inhaler] 1 puff IH QID 11/20/18 [History] Omeprazole 20 mg PO DAILY 11/20/18 [History] Suvorexant [Belsomra] 20 mg PO HS PRN PRN 11/20/18 [History] Venlafaxine HCl [Venlafaxine HCl ER] 225 mg PO DAILY 11/20/18 [History] Hx Tetanus, Diphtheria Vaccination/Date Given: Yes Hx Influenza Vaccination/Date Given: Yes Hx Pneumococcal Vaccination/Date Given: Yes Travel Risk - International Travel Have you traveled outside of the country in past 3 weeks: No - Coronavirus Screening Are you exhibiting any of the following symptoms?: No - Vaccine Status Have you recieved a Covid-19 vaccination: No - Review of Systems Constitutional: No Symptoms Eyes: No Symptoms Ears, Nose, & Throat: No Symptoms Respiratory: No Symptoms Cardiac: No Symptoms Abdominal/Gastrointestinal: No Symptoms Genitourinary Symptoms: No Symptoms Musculoskeletal: No Symptoms Skin: No Symptoms Neurological: No Symptoms Psychological: No Symptoms Endocrine: No Symptoms Hematologic/Lymphatic: No Symptoms Immunological/Allergic: Pollen Allergy - Past Medical History Pertinent Past Medical History: Yes Neurological History: No Pertinent History ENT History: Cataracts Cardiac History: No Pertinent History Respiratory History: Emphysema Endocrine Medical History: No Pertinent History Musculoskeletal History: Other GI Medical History: Esophageal Disorder, GERD, Hemorrhoids, Hernia History: No Pertinent History Psycho-Social History: Anxiety, Depression Male Reproductive Disorders: No Pertinent History Other Medical History: 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 ,also at this time left clavicle bone removed and place at stomach to wrap remainder of stomach around it. peg tube has been replaced x2. feeding tube - Social History Smoking Status: Never smoker Exposure to second hand smoke: No Drug Use: none Patient Lives Alone: No Significant Family History: no pertinent family hx - Nursing Vital Signs Nursing Vital Signs: Initial Vital Signs Temperature 98.0 F 12/03/20 16:02 Pain Scale Pain Intensity 0 - Physical Exam General Appearance: no apparent distress Eye Exam: PERRL/EOMI Ears, Nose, Throat Exam: normal ENT inspection Neck Exam: normal inspection Respiratory Exam: normal breath sounds, lungs clear, airway intact, No respiratory distress Cardiovascular Exam: regular rate/rhythm, normal peripheral pulses, No murmur Gastrointestinal/Abdomen Exam: soft (Multiple abdominal scars/Good BS's/Soft/NTTP/G-tube in place) Back Exam: normal inspection Extremity Exam: normal inspection - Course Nursing assessment & vital signs reviewed: Yes - Progress Progress: improved Progress Note: 12/03/20 16:12 Nurse pulled on tube and advanced button to skin/Flushes well Counseled pt/family regarding: need for follow-up - Departure Departure Disposition: Home Clinical Impression: Gastrostomy tube dysfunction Condition: Stable Critical Care Time: No Referrals: ANABELLE LAO [Primary Care Provider] - Instructions: Gastrostomy, Permanent and Temporary Additional Instructions: Follow up as needed Use tube as directed
== END 2020-12-03 16:25 | disposition home or self-care (01) ==
LOC: ED 15:52
DX: K94.23 Gastrostomy malfunction (principal)
CPT/HCPCS: 99283

== ENCOUNTER 2021-07-07 21:50 | Emergency (ER) | payer OTHER ==
[2021-07-07 22:01] VITALS: O2SAT 98
--- NOTE | 2021-07-07 23:43 | ERPHSYRPT ---
- History of Present Illness Time Seen by Provider: 07/07/21 21:55 Source: patient Exam Limitations: no limitations Patient Subjective Stated Complaint: Patient states " My feeding tube fell out." Triage Nursing Assessment: Patient arrived to ED and ambulated back to room without difficulty. Patient A/O times 4. Patient able to follow simple instructions without difficulty. G-tube noted to be out upon arrival. G-tube site very red and irritated. Patient states he is currently on oral ATB for infection to g-tube site. Patient states he was laying down and started to feel burning around his g-tube site and then looked down and the tube had came out. Patient to F/U on Wednesday with Dr. Leija. Physician History: Patient is a 60-year-old male presents to our ED due to a displaced feeding tube. Patient states that he currently has a slight soft tissue infection he is currently being treated with antibiotics. Patient was at home today when he observed his feeding tube displaced. He is otherwise asymptomatic. Patient requesting that we replace his feeding tube. No fever. No trauma. No nausea or vomiting. No abdominal pain. No diarrhea. No other complaints. Timing/Duration: today Severity: mild Modifying Factors: Improves With: nothing Associated Symptoms: denies symptoms Allergies/Adverse Reactions: Penicillins Allergy (Unknown, Verified 07/07/21 22:03) acetaminophen [From Percocet] Adverse Reaction (Verified 07/07/21 22:03) Itching codeine Adverse Reaction (Verified 07/07/21 22:03) Itching morphine Adverse Reaction (Verified 07/07/21 22:03) Itching naproxen Adverse Reaction (Verified 07/07/21 22:03) Rash oxycodone [From Percocet] Adverse Reaction (Verified 07/07/21 22:03) Itching Home Medications: Aspirin 81 mg PO DAILY 10/12/16 [History] Hydrocodone/Acetaminophen [Hydrocodone-Acetamin 10-325 mg] 1 tab PO Q6H PRN PRN 10/12/16 [History] Mirtazapine 45 mg PO HS 10/12/16 [History] Nitroglycerin 0.4 mg (Ed) [Nitrostat 0.4 MG (ED)] 0.4 mg PO Q5MIN PRN MR X 3 PRN 10/12/16 [History] Quetiapine Fumarate [Seroquel] 100 mg PO BID 01/01/18 [History] Budesonide/Formoterol Fumarate [Symbicort 80-4.5 Mcg Inhaler] 2 puff IH BID 11/20/18 [History] Ipratropium/Albuterol Sulfate [Combivent Inhaler] 1 puff IH QID 11/20/18 [Hist ory] Omeprazole 20 mg PO DAILY 11/20/18 [History] Suvorexant [Belsomra] 20 mg PO HS PRN PRN 11/20/18 [History] Venlafaxine HCl [Venlafaxine HCl ER] 225 mg PO DAILY 11/20/18 [History] Hx Tetanus, Diphtheria Vaccination/Date Given: Yes Hx Influenza Vaccination/Date Given: Yes Hx Pneumococcal Vaccination/Date Given: Yes Immunizations Up to Date: Yes Travel Risk - International Travel Have you traveled outside of the country in past 3 weeks: No - Coronavirus Screening Are you exhibiting any of the following symptoms?: No Close contact with a COVID-19 positive Pt in past 14-21 Days: No - Vaccine Status Have you recieved a Covid-19 vaccination: Yes 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 - Review of Systems Constitutional: No Symptoms, No Fever, No Chills Eyes: No Symptoms Ears, Nose, & Throat: No Symptoms Respiratory: No Symptoms, No Cough, No Dyspnea Cardiac: No Symptoms, No Chest Pain, No Edema, No Syncope Abdominal/Gastrointestinal: No Symptoms, No Abdominal Pain, No Nausea, No Vomiting, No Diarrhea Genitourinary Symptoms: No Symptoms, No Dysuria Musculoskeletal: No Symptoms, No Back Pain, No Neck Pain Skin: No Symptoms, No Rash Neurological: No Symptoms, No Dizziness, No Focal Weakness, No Sensory Changes Psychological: No Symptoms Endocrine: No Symptoms Hematologic/Lymphatic: No Symptoms Immunological/Allergic: No Symptoms All Other Systems: Reviewed and Negative - Past Medical History Pertinent Past Medical History: Yes Neurological History: No Pertinent History ENT History: Cataracts Cardiac History: No Pertinent History Respiratory History: Emphysema Endocrine Medical History: No Pertinent History Musculoskeletal History: Other GI Medical History: Esophageal Disorder, GERD, Hemorrhoids, Hernia History: No Pertinent History Psycho-Social History: Anxiety, Depression Male Reproductive Disorders: No Pertinent History Other Medical History: 1999-Diagnosed with Marfan syndrome and Stacey-Danlos syndrome - Past Surgical History Past Surgical History: Yes Neuro Surgical History: No Pertinent History Cardiac: No Pertinent History Respiratory: Lobectomy Gastrointestinal: Hernia Repair, Other Genitourinary: No Pertinent History Musculoskeletal: Orthopedic Surgery Male Surgical History: No Pertinent History Other Surgical History: left knee "polyp or blockage removed,not cancer 2015",aug 2017 had esoph/hiatel hernia/stomach surgery in [facility] ,also at this time left clavicle bone removed and place at stomach to wrap remainder of stomach around it. - Social History Smoking Status: Former smoker Exposure to second hand smoke: No Drug Use: none Patient Lives Alone: No Significant Family History: no pertinent family hx - Nursing Vital Signs Nursing Vital Signs: Initial Vital Signs Temperature 98.1 F 07/07/21 21:51 Pulse Rate 85 07/07/21 21:51 Respiratory Rate 18 07/07/21 21:51 Blood Pressure 152/97 07/07/21 21:51 O2 Sat by Pulse Oximetry 98 07/07/21 21:51 Pain Scale Pain Intensity 0 - Physical Exam General Appearance: no apparent distress, alert Eye Exam: PERRL/EOMI, eyes nml inspection Ears, Nose, Throat Exam: normal ENT inspection, TMs normal, pharynx normal, moist mucous membranes Neck Exam: normal inspection, non-tender, supple, full range of motion Respiratory Exam: normal breath sounds, lungs clear, airway intact, No respiratory distress Cardiovascular Exam: regular rate/rhythm, normal heart sounds, normal peripheral pulses Gastrointestinal/Abdomen Exam: soft, normal bowel sounds, other (Displaced feeding tube. Soft tissue around the G-tube shows slight granulation tissue with slight erythema.), No tenderness, No mass Back Exam: normal inspection, normal range of motion, No CVA tenderness, No vertebral tenderness Extremity Exam: normal inspection, normal range of motion, pelvis stable Neurologic Exam: alert, oriented x 3, cooperative, normal mood/affect, nml cerebellar function, nml station & gait, sensation nml, No motor deficits Skin Exam: normal color, warm, dry, No rash Lymphatic Exam: No adenopathy SpO2 Interpretation: normal SpO2: 98 O2 Delivery: Room Air - Course Nursing assessment & vital signs reviewed: Yes - Radiology Exams Abdomen X-ray Interpretation: Teleradiologist Report (There is no evidence of leak. Normal bowel dilation. PEG tube appears in satisfactory position) Ordered Tests: Active Orders 24 hr Category Date Time Status KUB Stat Exams 07/07/21 22:22 Taken - Progress Progress: improved Progress Note: PEG tube was replaced. PEG tube was lubricated and inserted directly into the existing tract. No complications. The balloon was filled with 20 cc of sterile water. Patient tolerated procedure well. KUB was ordered. Gastrografin was used to confirm placement. Radiology report confirms placement. Patient asymptomatic post procedure. Patient states he is ready for discharge. No indication for further work-up at this time. Patient agrees to follow-up with his primary care doctor within 48 hours for evaluation. Patient voices no other complaints concerns at this time. Patient may continue his antibiotics as recommended per his primary care physician. Portions of this note were created with voice recognition technology. There may be grammatical, spelling, punctuation or sound alike errors 07/07/21 23:50 Counseled pt/family regarding: diagnosis, need for follow-up, rad results - Departure Departure Disposition: Home Clinical Impression: Gastrostomy tube dysfunction Condition: Stable Critical Care Time: No Referrals: ANABELLE SMITH [Primary Care Provider] - Follow up/PCP as directed Additional Instructions: Discharge/Care Plan SARAH DUBOIS was seen on 07/07/21 in the Emergency Room. The patient was counseled regarding Diagnosis,Lab results, Imaging studies, need for follow up and when to return to the Emergency Room. Prescriptions given: Discharge Note I have spoken with the patient and/or caregivers. I have explained the patient's condition, diagnosis and treatment plan based on the information available to me at this time. I have answered the patient's and/or caregiver's questions and addressed any concerns. The patient and/or caregivers have as good understanding of the patient's diagnosis, condition and treatment plan as can be expected at this point. The vital signs have been stable. The patient's condition is stable and appropriate for discharge from the emergency department. The patient will pursue further outpatient evaluation with the primary care physician or other designated or consulting physician as outlined in the discharge instructions. The patient and/or caregivers are agreeable to this plan of care and follow-up instructions have been explained in detail. The patient and/or caregivers have received these instruction. The patient/and or caregivers are aware that any significant change in condition or worsening of symptoms kaylynn uld prompt an immediate return to this or the closest emergency department or call 911.
[2021-07-07 23:52] VITALS: BP 135/93; PULSE 80
--- NOTE | 2021-07-08 08:44 | XRAY ---
Indication: PEG tube replacement. Comparison: June 30, 2021. KUB obtained following injection of 30 cc Gastrografin contrast through PEG tube. Contrast collects in duodenum/proximal jejunum without abnormal extravasation. Remaining KUB nonacute and nonobstructed with stable epigastric surgical clips. Comment: Preliminary interpretation made by [facility]. No critical discrepancy.
== END 2021-07-07 23:52 | disposition home or self-care (01) ==
LOC: ED 21:50
DX: T85.528A Displacement of other gastrointestinal prosthetic devices, implants and grafts, initial encounter (principal); K22.9 Disease of esophagus, unspecified; Z79.891 Long term (current) use of opiate analgesic; Z79.899 Other long term (current) drug therapy
CPT/HCPCS: 74018; 99283; Q9963